=== PATIENT | female | born 1950 | race Caucasian/White ===

== ENCOUNTER → 2020-02-29 | Outpatient (CLI) | payer MEDICARE, SELFPAY ==
--- NOTE | 2020-02-29 11:17 | RAD_ITS ---
STUDY: X-RAY - PELVIS REASON FOR EXAM: Female, 69 years old. arthritis, bilateral hip pain TECHNIQUE: One view of the pelvis was obtained. COMPARISON: None. FINDINGS: There is a non-specific bowel gas pattern. Normal visualized soft tissue structures. Degenerative changes of the lumbosacral spine with L5 laminectomy noted. Normal bilateral iliac wings, sacroiliac joints and visualized sacrum. Normal visualized bilateral superior and inferior pubic rami. There is narrowing with sclerosis of the pubic symphysis. Normal ischial tuberosities. There are osteoarthritic changes of the right femoral head with marginal osteophyte formation. There is osteoarthritic spur formation of the right acetabular rim. There is moderate articular joint space narrowing of the right hip. There are osteoarthritic changes of the left femoral head with marginal osteophyte formation. There is osteoarthritic spur formation of the left acetabular rim. There is moderate articular joint space narrowing of the left hip. RAD/Pelvis 1 or 2 Views IMPRESSION: Moderate bilateral hip osteoarthrosis. Electronically Signed: Shabbir Jones MD (Brooks) at 13:43 EDT , Service support ,
--- NOTE | 2020-02-29 11:19 | RAD_ITS ---
STUDY: X-RAY - LEFT KNEE REASON FOR EXAM: Female, 69 years old. arthritis -- bilateral knee pain and leg, left more than right TECHNIQUE: 3 view(s) of the knee. COMPARISON: None. FINDINGS: Normal visualized distal femur. Normal visualized proximal tibia and fibula. Normal proximal tibiofibular articulation. Normal medial femorotibial compartment. There is severe degenerative arthrosis of the lateral femorotibial compartment with severe joint space narrowing. There is moderate degenerative arthrosis of the patellofemoral articulation. There is a soft tissue prominence in the suprapatellar region suggesting a small volume joint effusion. The soft tissue structures are unremarkable. RAD/Knee 3 Views IMPRESSION: Lateral dominant osteoarthrosis. Trace joint effusion. Electronically Signed: Shabbir Jones MD (Brooks) at 13:41 EDT , Service support ,
--- NOTE | 2020-02-29 11:19 | RAD_ITS ---
STUDY: X-RAY - RIGHT KNEE REASON FOR EXAM: Female, 69 years old. arthritis -- bilateral knee pain and leg, left more than right TECHNIQUE: 3 view(s) of the knee. COMPARISON: None. FINDINGS: Normal visualized distal femur. Normal visualized proximal tibia and fibula. Normal proximal tibiofibular articulation. There is mild degenerative arthrosis of the medial femorotibial compartment. There is mild degenerative arthrosis of the lateral femorotibial compartment. There is mild degenerative arthrosis of the patellofemoral articulation. There is no demonstrated joint effusion. The soft tissue structures are unremarkable. RAD/Knee 3 Views IMPRESSION: Mild tricompartmental osteoarthrosis. No joint effusion. Electronically Signed: Shabbir Jones MD (Brooks) at 13:41 EDT , Service support ,
== END | disposition home or self-care (01) ==
LOC: RAD 11:15
PROVIDERS: PCP Family Medicine; Referring Provider Internal Medicine Rheumatology; Visit Provider Internal Medicine Rheumatology
DX: M15.0 Primary generalized (osteo)arthritis (principal)
CPT/HCPCS: 72170; 73562

== ENCOUNTER → 2022-01-14 | Outpatient (CLI) | payer MEDICARE, SELFPAY ==
[2022-01-14 15:21] LABS: Absolute Lymphocyte Count 2.22 X10^3/uL (0.83-4.51); Absolute Neutrophil Count 3.7 X10^3/uL (2.0-7.7); Basophil# 0.03 X10^3/uL; Basophil% 0.4 % (0-1); Eosinophil# 0.11 X10^3/uL; Eosinophils% 1.6 % (0-5); Hematocrit 46.7 % (37-47); Hemoglobin 15.5 g/dL (12.0-15.0); Lymphocyte # 2.22 X10^3/ul (0.83-4.51); Lymphocyte % 33.3 % (19-41); Mean Corp Hgb Conc 33.2 g/dL (32-36); Mean Corpuscular Hgb 29.8 pg (27.0-32.0); Mean Corpuscular Volume 89.6 fL (81-99); Monocyte# 0.64 X10^3/uL; Monocyte% 9.6 % (0-10); NRBC Flagged by Analyzer 0 % (0-5); Neutrophil # 3.66 X10^3/uL (2.7-7.7); Platelet Count 238 K/mm3 (150-450); RBC Distribution Width CV 13.2 % (11.6-14.6); RBC Distribution Width SD 42.8 fl (35.1-43.9); Red Blood Count 5.21 M/mm3 (4.2-5.4); White Blood Count 6.7 K/mm3 (4.4-11.0)
[2022-01-14 15:38] LABS: Vitamin D,25 Hydroxy 28.7 ng/mL
[2022-01-14 15:43] LABS: ALB/GLOB Ratio 0.8 RATIO (0.9-2.4); AST(SGOT) 19 U/L (15-37); Alanine Aminotransfer ALT/SGPT 27 U/L (13-56); Albumin, Serum 3.5 g/dL (3.2-5.0); Alkaline Phosphatase 99 U/L (45-117); Anion Gap 6 (5-15); BUN 23 mg/dL (7-18); BUN/Creat Ratio 25.7 RATIO (10-20); Calcium,Total 9.3 mg/dL (8.5-10.1); Chloride 110 mmol/L (98-107); Cholesterol 181 mg/dL (200); Creatinine, Serum 0.89 mg/dL (0.55-1.02); EST Glomerular Filtration Rate 66 mL/min (>60); Est Glom Filt Rate - Afr Amer 80 mL/min (>60); Globulin 4.6 g/dL (2.2-4.2); Glucose 85 mg/dL (74-106); High Density Lipoprotein 37 mg/dL; Magnesium 1.8 mg/dL (1.6-2.6); Potassium 3.8 mmol/L (3.5-5.1); Protein, Total 8.1 g/dL (6.4-8.2); Sodium Level 141 mmol/L (136-145); Thyroid Stim Hormone (TSH) 1.08 uIU/mL (0.358-3.74); Triglycerides 233 mg/dL; Very Low Density Lipoprotein 47 mg/dL (5-40)
[2022-01-17 15:08] LABS: PROEL- A/G Ratio 1.1 (0.7-1.7); PROEL- Albumin 3.8 g/dL (2.9-4.4); PROEL- Alpha-1 Globulin 0.2 g/dL (0.0-0.4); PROEL- Alpha-2 Globulin 0.6 g/dL (0.4-1.0); PROEL- Beta Globulin 1.3 g/dL (0.7-1.3); PROEL- Gamma Globulin 1.4 g/dL (0.4-1.8); PROEL- Globulin, Total 3.5 g/dL (2.2-3.9); PROEL- TOTAL PROTEIN 7.3 g/dL (6.0-8.5)
== END | disposition home or self-care (01) ==
LOC: MTLAB 13:02
PROVIDERS: PCP Family Medicine; Referring Provider Family Medicine; Visit Provider Family Medicine
DX: I10 Essential (primary) hypertension (principal); E55.9 Vitamin D deficiency, unspecified
CPT/HCPCS: 36415; 80053; 80061; 82306; 83735; 84165; 84443; 85025

== ENCOUNTER → 2022-01-24 | Outpatient (CLI) | payer MEDICARE, SELFPAY ==
--- NOTE | 2022-01-24 07:48 | RAD_ITS ---
STUDY: X-RAY - ESOPHAGUS (BARIUM SWALLOW) WITH FLUOROSCOPY REASON FOR EXAM: Female, 71 years old. DYSPHAGIA TECHNIQUE: 21 view(s) of the esophagus were obtained following swallowing of barium. FLUOROSCOPY TIME (if supplied): (32 seconds) minutes/seconds COMPARISON: None. FINDINGS: There is no demonstrated esophageal foreign body. There is no demonstrated stricture or mucosal abnormality. Normal gastroesophageal junction, without a demonstrated hiatal hernia. Tertiary contractions of the distal esophagus. The patient ingested a 12 mm tablet of barium. The tablet is trapped at the gastroesophageal junction. Normal visualized aortic arch and descending thoracic aorta. Normal visualized pulmonary parenchyma. Normal visualized osseous structures of the thorax. RAD/Esophagus Dual Contrast IMPRESSION: The patient ingested a 12 mm tablet of barium. The tablet is trapped at the gastroesophageal junction. Electronically Signed: Murali Garcia MD at 9:06 EDT ,
== END | disposition home or self-care (01) ==
PROVIDERS: PCP Family Medicine; Referring Provider Family Medicine; Visit Provider Family Medicine
DX: R13.10 Dysphagia, unspecified (principal)
CPT/HCPCS: 74221

== ENCOUNTER 2022-05-16 05:26 | Day surgery (SDC) | payer MEDICARE, SELFPAY ==
[2022-05-16] VITALS (7 sets, daily range): BP systolic 135–167; BP diastolic 74–82; PULSE 58–61; RESP 12–18; TEMP 36.4–37.3; O2SAT 95–98; BMI 43.8
--- NOTE | 2022-05-16 | GASB_PTH ---
PATIENT: NASEEM ROMAN LOC: EN U#:[id number] AGE/SX: 71/F ROOM: RE05/16/[address]: Dr. Leroy Mejia MD : 1950 BED: DIS: 05/16/2022 SPEC #: [id number] RECD: 05/16/22 10:04 STATUS: NIXON SMALL #: [id number] JAROCHO: 05/16/22 00:[address]: Leroy Mejia DEPT: SURGICAL PATHOLOGY RECD BY: Stephan Feliciano ENTERED: 05/16/22 14:01 SP TYPE: Gastric Bx OTHR DR: Dr. Nitesh Kat MD Tissues: A - Gastric mucous membrane B - Stomach, NOS C - Gastric mucous membrane Procedures: Special Stain Group II Surgery Specimen Level IV Alcian Blue/PAS (control) HEADER OPERATION: EGD ([facility] [place]) with biopsies and dilatation PRE-OP DIAGNOSIS: GERD TISSUE SUBMITTED: A ? Antrum biopsy for H. Pylori and histology, B ? Greater curvature polyp biopsy, C ? Gastroesophageal junction biopsy MICROSCOPIC DIAGNOSIS A. Antrum, biopsy: Mild gastritis. See microscopic description and comment. B. Greater curvature polyp, biopsy: Fundic gland polyp. C. Gastroesophageal junction, biopsy: Fragments of gastroesophageal mucosa with chronic inflammation. Intestinal metaplasia (goblet cell metaplasia) not identified. See comment. SJ:rg 05/20/2022 COMMENT A. The results of immunohistochemistry for Helicobacter pylori will be reported separately ([id number]). C. Alcian blue/PAS stain with matched control is used in the evaluation of the specimen. MICROSCOPIC DESCRIPTION Slides are reviewed. A. The specimen shows fragments of gastric mucosa with chronic inflammatory cell infiltrates in the lamina propria consisting of lymphocytes and plasma cells, consistent with mild chronic gastritis. GROSS DESCRIPTION A - Received in fixative is one container labeled with the patient's name and designated antrum biopsy. The specimen consists of two irregular fragments of light lord soft tissue that in aggregate measure 0.6 x 0.3 x 0.1 cm. The specimen is totally submitted in one cassette. B - Received in fixative is one container labeled with the patient's name and designated greater curvature polyp biopsy. The specimen consists of one irregular fragment of light lord soft tissue that measures 0.3 x 0.3 x 0.1 cm. The specimen is totally submitted in one cassette. C - Received in fixative is one container labeled with the patient's name and designated GE junction biopsy. The specimen consists of two irregular fragments of light lord soft tissue that in aggregate measure 0.7 x 0.3 x 0.1 cm. The specimen is totally submitted in one cassette. / SJ:rg 05/16/2022 TC:3 CPT: 78993 x3, 88156
[2022-05-16] MEDS: Lactated Ringers 1,000 ML 15 ML IV (05:35)
--- NOTE | 2022-05-16 06:03 | PCM.HP.BLA ---
History and Physical Date of Admission: 05/16/22 Visit Reasons:?Gastroesophageal reflux disease (GERD) Chief Complaint: gerd/swallowing difficulties Is patient in pain?: No Allergies Penicillins Allergy (Intermediate, Verified 03/20/22 10:13) Hiveslatex Allergy (Uncoded 03/20/22 10:13) Swelling Medications aliskiren 150 mg-hydrochlorothiazide 12.5 mg tablet (Tekturna HCT) 1 tab PO DAILY 03/20/22 [History Confirmed 03/20/22] atorvastatin 20 mg tablet 20 mg PO DAILY 03/20/22 [History Confirmed 03/20/22] cholecalciferol (vitamin D3) 50 mcg (2,000 unit) capsule 50 mcg PO DAILY 03/20/22 [History Confirmed 03/20/22] famotidine 20 mg tablet (Acid Cert Pharmacy Tech (famotidine)) 20 mg PO DAILY 03/20/22 [History Confirmed 03/20/22] metoprolol succinate 25 mg tablet,extended release 24 hr (Toprol XL) 25 mg PO DAILY 03/20/22 [History Confirmed 03/20/22] omeprazole 40 mg capsule,delayed release 40 mg PO DAILY 03/20/22 [History Confirmed 03/20/22] PFSH Surgical History?(Updated 03/20/22 @ 10:08 by Daysi Pedersen) H/O Spinal surgery History of cholecystectomy History of lumpectomy of left breast History of right hip replacement Family History?(Updated 03/20/22 @ 10:09 by Daysi Pedersen) Mother Diabetes Hypertension CVA (cerebral vascular accident)Father Heart disease Hypertension Social History?(Updated 03/20/22 @ 10:09 by Daysi Pedersen) Smoking Status:? Never smoker alcohol intake:? never substance use type:? does not use HPI HPI HPI: 71-year-old female who is referred by Dr Nitesh Kat for surgical consultation regarding gastroesophageal reflux disease.? A written copy of my surgical consult recommendations will return to him.? By report the patient's symptoms of GERD started in the .? She complains of epigastric gnawing pain and substernal burning.? She does not have any dysphagia to solids.? She is dependent upon her proton pump inhibitor.? She has never had an upper endoscopy.? It is of note that she is intolerant to multiple medications.? Her PPI is omeprazole 40 mg daily.? It is noted that she takes ibuprofen 600 mg as needed.? She is not a tobacco user.? She is morbidly obese with a weight of 258 pounds and a BMI of 41.7.? She is additionally being referred to Dr. Leroy Bateman for further evaluation of suspected obstructive sleep apnea. At the [facility] on January 24, 2022 the patient had a barium esophagram.? Normal gastroesophageal junction without a demonstrated hiatal hernia.? Tertiary contractions of the distal esophagus.? A 12 mm tablet of barium became trapped at the GE junction. The patient notes that intermittently particular with taking tablets she will notice that sensation high in the suprasternal area of the neck.? She has been placed on famotidine 20 g nightly in addition to her omeprazole therapy.? She has just started that and states she has not noticed any significant change.? She is able to swallow foods well.? She has not had any weight loss and likely over the past couple years has had weight gain.? She has orthopedic issues that have slowed down her activity. ROS General General: Yes colon cancer and breast cancer; No weight change, appetite, fatigue or weakness HEENT HEENT: Yes difficulty swallowing; No eye injury, eye surgery, swollen glands or hoarseness Endo Endocrine: No thyroid disease, diabetes mellitus, thyroid cancer, Hair loss, heat intolerance or cold intolerance Skin Skin: No rash or changing moles Breast Breast: No left breast lump, right breast lump, nipple discharge, breast pain, abnormal mammogram, abnormal US or breast enlargement Musc Musculoskeletal: Yes back problems and arthritis; No rheumatoid arthritis, gout or joint pain Cardio Cardiovascular: Yes high blood pressure; No murmur, pacemaker, heart disease, atrial fibrillation, heart attack, heart stent, palpitations, shortness of breat with exertion or chest pain Psych Psychiatric: No depression, anxiety or hearing voices Resp Respiratory: No shortness of breath, Yes sleep apnea, No cough, No COPD, No asthma, No emphysema and No wheezing Gastro Gastrointestinal: No abdominal pain, Yes nausea or vomiting, No diarrhea, No constipation, No blood in stool, Yes acid reflux, No hemorrhoids, No ulcers, No gallbladder problem and No black,tarry stools Elías Hematologic: No blood thinners, No blood disorders, No bleeding, No anemia and No blood clots Neuro Neurologic: No system reviewed and no additional complaints, except as documented, No as per HPI, No abnormal gait, No abnormal hearing, No abnormal movements, No abnormal speech, No behavioral changes, No burning sensations, No confusion, No convulsions, No disequilibrium, No dizziness, No localized weakness, No frequent falls, No headache(s), No lack of coordination, No loss of vision, No memory loss, No numbness, No other visual disturbances, No radicular pain, No restless legs, No sensory deficit, No syncope, No tingling, No tremor(s), No weakness and No other Exam Const General: cooperative, healthy appearing, comfortable and no acute distress [facility] Head: normal to inspection Eyes General: appearance normal, both eyes and all related structures Neck Neck: normal visual inspection Chest Chest palpation & inspection: normal inspection of the chest Resp Effort & Inspection: normal respiratory effort Auscultation: clear to auscultation bilaterally Cardio Rate: regular rate Rhythm: regular rhythm GI Inspection: normal to inspection Palpation: soft and no hepatosplenomegaly Auscultation: normal bowel sounds Other: Soft, nontender, obese Musc Cervical Spine: normal cervical lordosis Skin General: no rashes or lesions noted Neuro General: patient alert, patient awake and patient oriented x3 Extrem General: no calf tenderness Other: Minimal bilateral extremity swelling Psych Appearance: grossly normal Assessment and Plan Assessment and Plan (1) Gastroesophageal reflux disease: ?Plan: I have reviewed with the patient the findings of her barium swallow and the barium tablet becoming stuck at the EG junction.? I propose for her a esophagogastroduodenoscopy with possible biopsy or esophageal dilatation if indicated.? I have described the technique, benefit, risk, alternatives.? I am proposing a [id number] hydrostatic balloon dilatation if required.? She had concerns about the sedation and I instructed her that we would be utilizing monitored anesthesia care.? She has had an opportunity to ask and have questions answered. I have additional discussed with her nonsurgical treatment options and we did touch upon the significant benefit of weight loss.? She is hoping to become more active as her orthopedic issues improve. I appreciate the opportunity of assisting with her surgical care Copy: Dr Nitesh Mejia M.D., F.A.C.S. I have examined the patient and the H&P has been reviewed. There are no clinical changes since date of exam. Leroy Mejia M.D., F.A.C.S.
--- NOTE | 2022-05-16 06:30 | IMM_PTH ---
PATIENT: NASEEM ROMAN LOC: EN U#:[id number] AGE/SX: 71/F ROOM: RE05/16/[address]: Dr. Leroy Mejia MD : 1950 BED: DIS: 05/16/2022 SPEC #: [id number] RECD: 05/16/22 14:21 STATUS: NIXON REQ #: [id number] JAROCHO: 05/16/22 06:[address]: Leroy Mejia DEPT: IMMUNOHISTOCHEMISTRY RECD BY: Florecita Bonilla ENTERED: 05/16/22 14:21 SP TYPE: IMMUNO OTHR DR: Dr. Nitesh Kat MD Tissues: A - Stomach, NOS Procedures: H Pylori (initial) PHYSICIAN & [place] [address] SPECIMEN INFORMATION: Tissue Source: A ? Antrum biopsy Clinical Info: GERD Specimen Number: [id number] CPT code: 75277 METHODOLOGY: Deparaffinized sections of prefer/formalin-fixed tissue or PAP/DQ stained slides are incubated with monoclonal/polyclonal antibodies/oligonucleotide probes. Localization is made via biotin free immunoperoxidase method. Appropriate controls are performed and reacted as expected. Results on target cell population are indicated in the following table: RESULTS: ANTIBODY / CLONE RESULT Block A H Pylori (polyclonal) negative These tests were developed and their performance characteristics determined by [facility]. They may not have been cleared or approved by the U.S. Food and Drug Administration. The FDA has determined that such clearance or approval is not necessary. The above immunohistochemical/dualISH markers are ordered and reviewed by the Pathologist. INTERPRETATION: A. Antrum, biopsy: Negative for Helicobacter pylori organisms. SJ:rigo 05/20/2022
--- NOTE | 2022-05-16 06:58 | OP.EGD_ITS ---
Patient Name: Dulce Peñaloza Procedure Date: 05/16/2022 6:07 AM Date of : 1950 Age: 71 Procedure: Upper GI endoscopy Indications: Dysphagia Providers: Leroy eMjia MD Referring MD: Leroy Mejia MD Medicines: See the Anesthesia note for documentation of the administered medications Complications: No immediate complications. Procedure: Pre-Anesthesia Assessment: - Prior to the procedure, a History and Physical was performed, and patient medications and allergies were reviewed. The patient's tolerance of previous anesthesia was also reviewed. The risks and benefits of the procedure and the sedation options and risks were discussed with the patient. All questions were answered, and informed consent was obtained. Prior Anticoagulants: The patient has taken no previous anticoagulant or antiplatelet agents. ASA Grade Assessment: II - A patient with mild systemic disease. After reviewing the risks and benefits, the patient was deemed in satisfactory condition to undergo the procedure. After obtaining informed consent, the endoscope was passed under direct vision. Throughout the procedure, the patient's blood pressure, pulse, and oxygen saturations were monitored continuously. The gastroscope was introduced through the mouth, and advanced to the second part of duodenum. The upper GI endoscopy was accomplished without difficulty. The patient tolerated the procedure well. Scope In: 6:36:07 AM Scope Out: 6:50:50 AM Total Procedure Duration Time 0 hours 14 minutes 43 seconds Findings: A mild Schatzki ring was found at the gastroesophageal junction. Biopsies were taken with a cold forceps for histology. A TTS dilator was passed through the scope. Dilation with an 18-19-20 mm balloon dilator was performed to 20 mm. The dilation site was examined following endoscope reinsertion and showed no change. Estimated blood loss was minimal. Diffuse mildly erythematous mucosa without bleeding was found in the gastric antrum. Biopsies were taken with a cold forceps for histology. The examined duodenum was normal. A small hiatal hernia was present. Multiple sessile polyps with no bleeding and no stigmata of recent bleeding were found on the greater curvature of the stomach. The polyp was removed with a cold biopsy forceps. Resection and retrieval were complete. Impression: - Mild Schatzki ring. Biopsied. Dilated. - Erythematous mucosa in the antrum. Biopsied. - Normal examined duodenum. Recommendation: - Discharge patient to home. - Resume previous diet. - Continue present medications. - Telephone my office for pathology results in 1 week. Procedure Code(s): --- Professional --- 92617, Esophagogastroduodenoscopy, flexible, transoral; with transendoscopic balloon dilation of esophagus (less than 30 mm diameter) 30699, 59, Esophagogastroduodenoscopy, flexible, transoral; with biopsy, single or multiple Diagnosis Code(s): --- Professional --- K22.2, Esophageal obstruction K31.89, Other diseases of stomach and duodenum R13.10, Dysphagia, unspecified CPT copyright 2017 [employer]. All rights reserved. The codes documented in this report are preliminary and upon charter boat operator review may be revised to meet current compliance requirements. Leroy Mejia MD 05/16/2022 6:57:40 AM This report has been signed electronically. Number of Addenda: 0 Note Initiated On: 05/16/2022 6:07 AM
--- NOTE | 2022-05-16 06:59 | OP.CCLET_ITS ---
05/16/2022 Nitesh Kat [address] [place] [address] Re : Upper GI endoscopy procedure for Dulce Peñaloza Dear Dr. Kat This procedure was performed on Monday, May 16, 2022. My impressions and recommendations are as follows: Impressions : - Mild Schatzki ring. Biopsied. Dilated. - Erythematous mucosa in the antrum. Biopsied. - Normal examined duodenum. Recommendations : - Discharge patient to home. - Resume previous diet. - Continue present medications. - Telephone my office for pathology results in 1 week. My findings are described in the full procedure note, which is enclosed. If I can be of further assistance, please feel free to contact me at Doctor phone number(s): Work: . Sincerely, Leroy Mejia MD 05/16/2022 6:57:40 AM This report has been signed electronically.
== END 2022-05-16 07:42 | disposition home or self-care (01) ==
LOC: EN 05:29 → AC 05:30
PROVIDERS: PCP Family Medicine; Referring Provider Family Medicine; Visit Provider Surgery
PROC: 0DJ08ZZ Inspection of Upper Intestinal Tract, Via Natural or Artificial Opening Endoscopic (ICD-10-PCS; CPT 43235; principal; 2022-05-16 06:25)
DX: K29.50 Unspecified chronic gastritis without bleeding (principal); E66.01 Morbid (severe) obesity due to excess calories; Z68.41 Body mass index [BMI] 40.0-44.9, adult; K22.2 Esophageal obstruction; K44.9 Diaphragmatic hernia without obstruction or gangrene; K31.89 Other diseases of stomach and duodenum; K21.00 Gastro-esophageal reflux disease with esophagitis, without bleeding; K31.7 Polyp of stomach and duodenum; E78.00 Pure hypercholesterolemia, unspecified; Z79.899 Other long term (current) drug therapy
CPT/HCPCS: 43239; 43249; 88305; 88313; 88342; J7120; J2405

== ENCOUNTER → 2022-05-29 | Outpatient (CLI) | payer MEDICARE, SELFPAY ==
[2022-05-29 15:32] LABS: Mucous, Urine 0 SEEN /hpf (<or=2+); Red Blood Cells-Urine 0 SEEN /hpf (0-5)
[2022-05-29 17:40] LABS: Absolute Lymphocyte Count 2.16 X10^3/uL (0.83-4.51); Absolute Neutrophil Count 4.1 X10^3/uL (2.0-7.7); Basophil# 0.04 X10^3/uL; Basophil% 0.6 % (0-1); Eosinophil# 0.18 X10^3/uL; Eosinophils% 2.5 % (0-5); Hematocrit 43.1 % (37-47); Hemoglobin 13.4 g/dL (12.0-15.0); Lymphocyte # 2.16 X10^3/ul (0.83-4.51); Lymphocyte % 30.3 % (19-41); Mean Corp Hgb Conc 31.1 g/dL (32-36); Mean Corpuscular Hgb 27.5 pg (27.0-32.0); Mean Corpuscular Volume 88.3 fL (81-99); Monocyte# 0.65 X10^3/uL; Monocyte% 9.1 % (0-10); NRBC Flagged by Analyzer 0 % (0-5); Neutrophil % 57.4 % (47-70); Platelet Count 257 K/mm3 (150-450); RBC Distribution Width CV 12.9 % (11.6-14.6); RBC Distribution Width SD 41.5 fl (35.1-43.9); Red Blood Count 4.88 M/mm3 (4.2-5.4); White Blood Count 7.1 K/mm3 (4.4-11.0)
[2022-05-29 18:34] LABS: ALB/GLOB Ratio 0.9 RATIO (0.9-2.4); AST(SGOT) 13 U/L (15-37); Alanine Aminotransfer ALT/SGPT 21 U/L (13-56); Albumin, Serum 3.5 g/dL (3.2-5.0); Alkaline Phosphatase 112 U/L (45-117); Anion Gap 6 (5-15); BUN 17 mg/dL (7-18); BUN/Creat Ratio 17.8 RATIO (10-20); Chloride 109 mmol/L (98-107); Cholesterol 143 mg/dL (200); Creatinine, Serum 0.95 mg/dL (0.55-1.02); EST Glomerular Filtration Rate 61 mL/min (>60); Est Glom Filt Rate - Afr Amer 74 mL/min (>60); Globulin 3.8 g/dL (2.2-4.2); Glucose 98 mg/dL (74-106); High Density Lipoprotein 48 mg/dL; Potassium 4.2 mmol/L (3.5-5.1); Protein, Total 7.3 g/dL (6.4-8.2); Sodium Level 142 mmol/L (136-145); Thyroid Stim Hormone (TSH) 0.81 uIU/mL (0.358-3.74); Triglycerides 108 mg/dL; Very Low Density Lipoprotein 22 mg/dL (5-40)
[2022-05-29 19:31] LABS: Color, Urine Yellow (Yellow); Glucose, Dipstick Normal (Normal); Ketone-Dipstick Negative (Negative); Leukocyte Esterase-Dipstick Negative /ul (Negative); Nitrite-Dipstick Negative (Negative); Occult Blood-Urine Negative /ul (Negative); Protein-Dipstick Negative (Negative); Urine Bilirubin Dipstick Negative (Negative); Urine Clarity Sl. Cloudy (Clear); Urine Urobilinogen Normal (Normal)
[2022-05-29 20:10] LABS: Vitamin D,25 Hydroxy 44.6 ng/mL
[2022-05-29 21:33] LABS: Bacteria 3+ /hpf (None Seen); Squamous Epithelial Cells - UA 5-10 SEEN /hpf (5-10); White Blood Cells 0-5 SEEN /hpf (0-5)
== END | disposition home or self-care (01) ==
LOC: MFPLAB 15:27
PROVIDERS: PCP Family Medicine; Visit Provider Family Medicine
DX: I10 Essential (primary) hypertension (principal); E55.9 Vitamin D deficiency, unspecified
CPT/HCPCS: 36415; 80053; 80061; 81001; 82306; 84443; 85025

== ENCOUNTER → 2022-07-03 | Outpatient (CLI) | payer MEDICARE, SELFPAY ==
[2022-07-03 15:49] LABS: Mucous, Urine 0 SEEN /hpf (<or=2+); Red Blood Cells-Urine 0 SEEN /hpf (0-5)
[2022-07-03 16:35] LABS: Color, Urine Yellow (Yellow); Glucose, Dipstick Normal (Normal); Ketone-Dipstick Negative (Negative); Leukocyte Esterase-Dipstick 500 /ul (Negative); Nitrite-Dipstick Negative (Negative); Occult Blood-Urine Negative /ul (Negative); Protein-Dipstick Negative (Negative); Specific Gravity, Urine 1.005 (1.002-1.030); Urine Bilirubin Dipstick Negative (Negative); Urine Clarity Sl. Cloudy (Clear); Urine Urobilinogen Normal (Normal)
[2022-07-03 16:47] LABS: Bacteria 2+ /hpf (None Seen); Squamous Epithelial Cells - UA 0-5 SEEN /hpf (5-10); White Blood Cells 10-25 SEEN /hpf (0-5)
== END | disposition home or self-care (01) ==
LOC: LABSPEC 15:15
PROVIDERS: PCP Family Medicine; Referring Provider Family Medicine; Visit Provider Family Medicine
DX: N39.0 Urinary tract infection, site not specified (principal)
CPT/HCPCS: 81001; 87086; 87088; 87186

== ENCOUNTER → 2022-09-04 | Outpatient (CLI) | payer MEDICARE, SELFPAY ==
--- NOTE | 2022-09-04 08:24 | RAD_ITS ---
STUDY: X-RAY - LUMBAR SPINE REASON FOR EXAM: Female, 71 years old. LOW BACK PAIN TECHNIQUE: 4 view(s) of the lumbar spine were obtained. COMPARISON: None FINDINGS: There has been previous laminectomy and pedicle screw fusion surgery at L4 and L5. Hardware is intact and free of complication. Normal lumbar lordosis. There is no substantial scoliosis. There is a normal alignment of the vertebrae. There is multilevel endplate spondylosis of the lumbar vertebrae. There is multi-level degenerative disc disease with multi-level disc space narrowing. There is no demonstrated fracture. There is atherosclerotic calcification of the abdominal aorta without a demonstrated aneurysm. RAD/L/S Spine Min 4 Views IMPRESSION: Multilevel degenerative and postsurgical changes, no acute findings Electronically Signed: Magdiel Sands MD at 9:36 EDT ,
== END | disposition home or self-care (01) ==
LOC: MTRAD 08:23
PROVIDERS: PCP Family Medicine; Referring Provider Family Medicine; Visit Provider Family Medicine
DX: M54.50 Low back pain, unspecified (principal)
CPT/HCPCS: 72110

== ENCOUNTER → 2023-06-03 | Outpatient (CLI) | payer MEDICARE, SELFPAY ==
--- OUTSIDE RECORDS SUMMARY | 2023-06-03 16:44 | XMS RPT_ITS | CCD ---
Author Name Unknown Address [id number] [place] [address] Organization [facility] Care Team Providers Care Gas Worker Name Role Phone Unavailable Primary Care Provider Unavailabl e Jl Whatley Primary Care Provider JL WHATLEY Primary Care Unavailable SIVAKUMAR WHATLEY Attending Unavailable SIVAKUMAR WHATLEY Referring Unavailable JL WHATLEY Primary Care Unavailable SIVAKUMAR WHATLEY Attending Unavailable SIVAKUMAR WHATLEY Referring Unavailable Jl Whatley MD Primary Care Provider JL WHATLEY Primary Care Unavailable SIVAKUMAR WHATLEY Referring Unavailable SIVAKUMAR WHATLEY Admitting Unavailable Jl Whatley MD Primary Care Provider Jl Whatley MD Primary Care Provider Jl Whatley MD Primary Care Provider SIVAKUMAR WHATLEY Attending Unavailable JL WHATLEY Primary Care Unavailable SIVAKUMAR WHATLEY Attending Unavailable JL WHATLEY Primary Care Unavailable SIVAKUMAR WHATLEY Attending Unavailable JL WHATLEY Primary Care Unavailable JL WHATLEY Primary Care Unavailable CHERISE PRIETO Attending Unavaila ble JL WHATLEY F Primary Care Unavailable CHERISE PRIETO Attending Unavaila ble JL WHATLEY F Primary Care Unavailable CHACORTA, SIVAKUMAR RJ Referring Unavailable CHACORTA, SIVAKUMAR RJ Attending Unavailable JL WHATLEY F Primary Care Unavailable CHACORTA, SIVAKUMAR RJ Referring Unavailable CHACORTA, SIVAKUMAR RJ Attending Unavailable CHACORTA, SIVAKUMARJUAN CARVALHOH Attending Unavailable JL WHATLEY F Primary Care Unavailable SIVAKUMAR WHATLEYH Referring Unavailable Jl Whatley MD Primary Care Provider [phone] Unavailable Primary Care Provider Unavailabl e UNASSIGNED, UNASSIGNED Primary Care Unavailab Lakhwinder Varner Attending Unavailable PROVIDER, UNKNOWN Referring Unavailable CHERISE HARVEY Admitting UnavailCHERISE Hamlin Attending UnavailMOHAN Alarcon Primary Care Unavailabl e AMALSCARLETT COLBY Referring Unavailabl e [facility] Care Unavailable AMSCARLETT COLLINS Referring Unavailabl e [facility] Primary Care Unavailable [facility] Primary Care Unavailable AMSCARLETT COLLINS Referring Unavailabl e Mohan Kat Primary Care Provider LAKHWINDER PHAM Referring Unavailable [facility] Primary [facility] Unavailable LAKHWINDER PHAM Admitting Unavailable LAKHWINDER PHAM Attending Unavailable [facility] Primary [facility] Unavailable SAMMY JEROME Unavailable Mohan Kat Primary Care Provider DEANA NOGUERA Attending Unavailable DEANA NOGUERA Attending Unavailable DEANA NOGUERA DO Admitting Unavailable DEANA NOGUEAR DO Attending Unavailable DEANA NOGUERA DO Primary Care Unavailable OFELIA BURDICK Attending Unavailable OFELIA BURDICK Primary Care Unavailable OFELIA BURDICK Admitting Unavailable Mohan Kat MD Primary Care Provider SCARLETT BELL Referring UnavailMOHAN Alarcon Primary Care Unavailable AMSCARLETT COLLINS Referring Unavailabl e AMALSCARLETT COLBY Attending UnavailMOHAN Alarcon Primary Care Unavailable MOHAN KAT MD Primary Care Physician [phone] DR LAKHWINDER PHAM DO Attending Unavailable MOHAN KAT MD Primary Care Unavailable Allergies Allergy Classification Reported Allergen(s) Allergy Type Date of Onset Reaction(s) Facility Amitriptyline (13 sources) Amitriptyline; Translations: [AMITRIPTYLINE HCL] Drug Allergy 05-11-20 13 Other (See Comments) [facility] anastrozole (13 sources) anastrozole; Translations: [ANASTROZOLE] Drug Allergy 05-11-20 13 Other (See Comments) [facility] Angiotensin 2 Receptor Blockers (ARB) (13 sources) Losartan; Translations: [LOSARTAN POTASSIUM] Drug Allergy 05-03-20 13 Other (See Comments) [facility] Antihistamines (13 sources) hydrOXYzine; Translations: [HYDROXYZINE] Drug Allergy 05-03-20 13 Other (See Comments) [facility] Aspirin / oxyCODONE Hydrochloride / oxyCODONE terephthalate (12 sources) Aspirin / oxyCODONE Hydrochloride / oxyCODONE terephthalate Drug Allergy 05-03-20 13 Other (See Comments) [facility] Atenolol (13 sources) Atenolol; Translations: [ATENOLOL] Drug Allergy 05-11-20 13 Other (See Comments) [facility] Brompheniramine / Phenylephrine (13 sources) Brompheniramine / Phenylephrine; Translations: [BROMPHENIRAMINE-P HENYLEPHRINE] Drug Allergy 05-11-20 13 Other (See Comments) [facility] Caffeine (13 sources) Caffeine; Translations: [CAFFEINE] Drug Allergy 06-17-19 07 [facility] Calcium (13 sources) Calcium; Translations: [CALCIUM] Drug Allergy 08-23-19 21 Other (See Comments) [facility] CHYMOTRYPSIN (13 sources) CHYMOTRYPSIN; Translations: [CHYMOTRYPSIN] Drug Allergy 05-11-20 13 Other (See Comments) [facility] cloNIDine (13 sources) cloNIDine; Translations: [CLONIDINE] Drug Allergy 05-11-20 13 Other (See Comments) [facility] Corticosteroids (20 sources) fluticasone; Translations: [FLUTICASONE] Drug Allergy 05-11-20 13 Other (See Comments) [facility] Doxycycline (13 sources) Doxycycline; Translations: [DOXYCYCLINE CALCIUM] Drug Allergy 05-11-20 13 Other (See Comments) [facility] Estrogens, Esterified (SKILLED NURSING) (12 sources) Estrogens, Esterified (SKILLED NURSING) Drug Allergy 05-11-20 13 Hives, Other (See Comments) [facility] exemestane (13 sources) exemestane; Translations: [EXEMESTANE] Drug Allergy 05-11-20 13 Other (See Comments) [facility] fexofenadine (13 sources) fexofenadine; Translations: [FEXOFENADINE] Drug Allergy 05-11-20 13 Other (See Comments) [facility] Latex (13 sources) Latex; Translations: [LATEX] Substance Allergy 03-25-20 06 Rash [facility] NSAIDs (6 sources) Ibuprofen; Translations: [IBUPROFEN] Drug All[facility] 06-17-[facility] 07 [facility] Opioid Agonists (20 sources) Codeine; Translations: [CODEINE] Drug Allergy 06-17-19 07 Other (See Comments) [facility] Penicillins (antibiotic) (13 sources) Penicillins; Translations: [PENICILLINS] Drug Allergy 06-17-19 07 Hives [facility] Perphenazine (13 sources) Perphenazine; Translations: [PERPHENAZINE] Drug Allergy 05-11-20 13 Other (See Comments) [facility] Promethazine (13 sources) Promethazine; Translations: [PROMETHAZINE HCL] Drug Allergy 05-03-20 13 Other (See Comments) [facility] Proton Pump Inhibitors (13 sources) dexlansoprazole; Translations: [DEXLANSOPRAZOLE] Drug Allergy 05-03-20 13 Hives [facility] Pseudoephedrine / Triprolidine (12 sources) Pseudoephedrine / Triprolidine Drug Allergy 05-11-20 13 Other (See Comments) [facility] Saccharin (12 sources) Saccharin Drug Allergy 06-17-19 [facility] Tamoxifen (13 sources) Tamoxifen; Translations: [TAMOXIFEN] Drug Allergy 05-11-20 13 Other (See Comments) [facility] (20 sources) Amitriptyline; Translations: [AMITRIPTYLINE HCL] Drug Allergy 05-11-20 13 Other (See Comments), Other: See Comments [facility] (20 sources) anastrozole; Translations: [ANASTROZOLE] Drug Allergy 05-11-20 13 Other (See Comments), Other: See Comments [facility] (20 sources) Aspirin / oxyCODONE Hydrochloride / oxyCODONE terephthalate; Translations: [OXYCODONE HES-UFYFKRLPU-FOD] Drug Allergy 05-03-20 13 Other (See Comments), Mental Status Change [facility] (20 sources) Atenolol; Translations: [ATENOLOL] Drug Allergy 05-11-20 13 Other (See Comments), Other: See Comments [facility] (20 sources) Brompheniramine / Phenylephrine; Translations: [BROMPHENIRAMINE-P HENYLEPHRINE] Drug Allergy 05-11-20 13 Other (See Comments), Other: See Comments [facility] (20 sources) Caffeine; Translations: [CAFFEINE] Drug Allergy 06-17-19 07 Intolerance [facility] (7 sources) Calcium; Translations: [CALCIUM] Drug Allergy 08-23-19 21 Other (See Comments) [facility] (20 sources) CHYMOTRYPSIN; Translations: [CHYMOTRYPSIN] Drug Allergy 05-11-20 13 Other (See Comments), Other: See Comments [facility] (20 sources) cloNIDine; Translations: [CLONIDINE] Drug Allergy 05-11-20 13 Other (See Comments), Other: See Comments [facility] (20 sources) Codeine; Translations: [CODEINE] Drug Allergy 05-11-20 Other (See Comments), Other: See Comments [facility] (20 sources) dexlansoprazole; Translations: [DEXLANSOPRAZOLE] Drug Allergy 05-03-20 13 Hives [facility] (20 sources) Doxycycline; Translations: [DOXYCYCLINE CALCIUM] Drug Allergy 05-11-20 13 Other (See Comments), Other: See Comments [facility] (20 sources) Estrogens, Esterified (SKILLED NURSING); Translations: [ESTERIFIED ESTROGENS] Drug Allergy 05-11-20 13 Hives, Other (See Comments), Other: See Comments [facility] (20 sources) exemestane; Translations: [EXEMESTANE] Drug Allergy 05-11-20 13 Other (See Comments), Other: See Comments [facility] (20 sources) fexofenadine; Translations: [FEXOFENADINE] Drug Allergy 05-11-20 13 Other (See Comments), Other: See Comments [facility] (7 sources) fluticasone; Translations: [FLUTICASONE] Drug Allergy 08-23-19 21 Other (See Comments) [facility] (20 sources) hydrOXYzine; Translations: [HYDROXYZINE] Drug Allergy 05-03-20 13 Other (See Comments), Contraindicati on-Medical Surgical [facility] (6 sources) Ibuprofen; Translations: [IBUPROFEN] Drug Allergy 06-17-19 07 [facility] (20 sources) Latex; Translations: [LATEX] Propensity to adverse reactions to drug 03-25-20 06 Rash, Other: See Comments [facility] (20 sources) Losartan; Translations: [LOSARTAN POTASSIUM] Drug Allergy 05-03-20 13 Other (See Comments), Intolerance [facility] (20 sources) Morphine; Translations: [MORPHINE] Drug Allergy 06-17-19 07 [facility] (20 sources) Penicillins; Translations: [PENICILLINS] Propensity to adverse reactions to drug 06-17-19 [facility] (20 sources) Perphenazine; Translations: [PERPHENAZINE] Drug Allergy 05-11-20 13 Other (See Comments), Other: See Comments [facility] (20 sources) predniSONE; Translations: [PREDNISONE] Drug Allergy 05-11-20 13 Other (See Comments), Other: See Comments [facility] (20 sources) Promethazine; Translations: [PROMETHAZINE HCL] Drug Allergy 05-03-20 13 Other (See Comments), Mental Status Change [facility] (20 sources) Pseudoephedrine / Triprolidine; Translations: [TRIPROLIDINE-PSEU DOEPHEDRINE] Drug Allergy 05-11-20 13 Other (See Comments), Other: See Comments [facility] (20 sources) Saccharin; Translations: [SODIUM SACCHARIN] Drug Allergy 06-17-19 07 Intolerance [facility] (20 sources) Tamoxifen; Translations: [TAMOXIFEN] Drug Allergy 05-11-20 Other (See Comments), Other: See Comments [facility] (20 sources) Norethindrone-E.Es tradiol-Iron; Translations: [NORETHINDRONE-E.E STRADIOL-IRON] Propensity to adverse reactions to drug 05-11-20 13 Other (See Comments), Other: See Comments [facility] (20 sources) Ct: Iodinated Contrast- Oral And Iv Dye; Translations: [CT: IODINATED CONTRAST- ORAL AND IV DYE] Propensity to adverse reactions to drug 05-11-20 13 Rash [facility] (20 sources) Adhesive Tape-Silicones; Translations: [ADHESIVE TAPE-SILICONES] Propensity to adverse reactions to drug 06-17-19 07 [facility] (20 sources) Vitamin; Translations: [VITAMIN] Propensity to adverse reactions to drug 05-11-20 13 Other (See Comments), Other: See Comments [facility] (17 sources) Acetaminophen / Codeine; Translations: [ACETAMINOPHEN-COD EINE] Drug Allergy 05-11-20 13 Other: See Comments [facility] (17 sources) Adhesive Tape; Translations: [ADHESIVE TAPE (ROSINS)] Propensity to adverse reactions 06-17-19 07 Intolerance [facility] Work Phone: (17 sources) Brompheniramine / Pseudoephedrine; Translations: [BROMPHENIRAMINE-P SEUDOEPHEDRIN] Drug Allergy 05-11-20 13 Other: See Comments [facility] (17 sources) Contrast media; Translations: [CONTRAST DYE] Drug Allergy 05-11-20 13 Rash [facility] (17 sources) Estradiol; Translations: [ESTRADIOL] Drug Allergy 05-11-20 Hives, Swelling, Itching [facility] (17 sources) letrozole; Translations: [LETROZOLE] Drug Allergy 05-11-20 Other: See Comments [facility] (17 sources) tolterodine; Translations: [TOLTERODINE TARTRATE] Drug Allergy 05-11-20 Other: See Comments [facility] (4 sources) All Drugs [Other] Propensity to adverse reactions 04-08-20 Other: See Comments [facility] Medications Current Medications Medication Drug Class(es) Dates Sig (Normalized) Sig (Original) acetaminophen 325 mg / HYDROcodone bitartrate 5 mg oral tablet (2 sources) Opioid Agonist Start: 10-25-2020 End: 11-07-2020 HYDROcodone-acetam inophen (NORCO) 5-325 mg per tablet Indications: Spinal stenosis of lumbar region with neurogenic claudication , S/P lumbar fusion Take 1 (one) tablet by mouth every 4 (four) hours as needed (Days supply per fill: 7) . 42 tablet 0 10/31/2020 11/07/2020 Active atorvastatin 20 mg oral tablet (8 sources) HMG-CoA Reductase Inhibitor Start: 04-23-2022 End: 07-15-2023 take 1 tablet by mouth once daily atorvastatin (LIPITOR) 20 mg tablet Indications: Abnormal stress test Take 1 tablet by mouth once daily. 90 tablet 3 07/15/2022 07/15/2023 Active Completed/Discontinued Medications Medication Drug Class(es) Dates Sig (Normalized) Sig (Original) acetaminophen 325 mg oral tablet (15 sources) End: 08-22-2020 take 2 tablets by mouth every six hours as needed acetaminophen (TYLENOL) 325 mg tablet Indications: Breast cancer of upper-outer quadrant of left female breast (HCC) , Malignant neoplasm of upper-outer quadrant of left female breast (HCC) , Er+ MD+ carcinoma of breast, left (HCC) , Screening for breast cancer Take 650 mg by mouth every 6 hours as needed. 0 Active Problems Active Problems Problem Classification Problem Date Documented Date Episodic/Chronic Cancer of breast (14 sources) Malignant neoplasm of upper-outer quadrant of female breast; Translations: [Malignant neoplasm of upper-outer quadrant of left female breast] Onset: 08-18-2016 08-18-2016 Chronic Cardiac dysrhythmias (4 sources) Cardiac arrhythmia; Translations: [Cardiac arrhythmia, unspecified] Onset: 02-20-2022 02-20-2022 Chronic Coronary atherosclerosis and other heart disease (4 sources) Coronary arteriosclerosis; Translations: [Atherosclerotic heart disease of [place] coronary artery without angina pectoris] Onset: 02-20-2022 02-20-2022 Chronic Disorders of lipid metabolism (2 sources) Hyperlipidemia; Translations: [Hyperlipidemia, unspecified] Onset: 07-22-2022 Chronic Esophageal disorders (4 sources) Gastroesophageal reflux disease; Translations: [Gastro-esophageal reflux disease without esophagitis] Onset: 02-20-2022 02-20-2022 Chronic Essential hypertension (8 sources) Essential (primary) hypertension; Translations: [Hypertensive disorder] Onset: 01-28-2022 Chronic Immunizations and screening for infectious disease (1 source) Viral screening status; Translations: [Encounter for screening for other viral diseases] Episodic Osteoarthritis (20 sources) Degenerative joint disease of ankle AND/OR foot; Translations: [Primary osteoarthritis, unspecified ankle and foot] Onset: 06-22-2009 06-22-2009 Chronic Other connective tissue disease (8 sources) History of lumbar fusion; Translations: [Arthrodesis status] Onset: 10-31-2020 Episodic Other connective tissue disease (3 sources) Other specified enthesopathies of unspecified lower limb, excluding foot; Translations: [Oth enthesopathies of unspecified lower limb, excluding foot] Onset: 01-31-2022 Episodic Other nutritional; endocrine; and metabolic disorders (14 sources) Obesity; Translations: [Obesity, unspecified] Onset: 11-02-2012 11-02-2012 Chronic Other nutritional; endocrine; and metabolic disorders (4 sources) Body mass index 40+ - severely obese; Translations: [Morbid (severe) obesity due to excess calories] Onset: 02-20-2022 02-20-2022 Chronic Residual codes; unclassified (4 sources) Sleep apnea; Translations: [Sleep apnea, unspecified] Onset: 02-20-2022 02-20-2022 Chronic Residual codes; unclassified (3 sources) History of excision of lamina of lumbar vertebra for decompression of spinal cord; Translations: [History of lumbar laminectomy for spinal cord decompression] Episodic Spondylosis; intervertebral disc disorders; other back problems (17 sources) Cervical spondylosis without myelopathy; Translations: [Spondylosis without myelopathy or radiculopathy, cervical region] Onset: 10-21-2007 10-21-2007 Chronic Unclassified (2 sources) History of lumbar laminectomy; Translations: [Status post lumbar laminectomy] Onset: 08-22-2020 08-22-2020 Past or Other Problems Problem Classification Problem Date Documented Date Episodic/Chronic Cardiac dysrhythmias (4 sources) Palpitations; Translations: [Palpitations] Onset: 01-28-2022 Episodic Other connective tissue disease (14 sources) Impingement syndrome of shoulder region; Translations: [Impingement syndrome of unspecified shoulder] Onset: 08-10-2012 08-10-2012 Episodic Other connective tissue disease (1 source) Trigger thumb, left thumb; Translations: [Trigger thumb, left thumb] Onset: 07-23-2022 Episodic Other non-traumatic joint disorders (1 source) Other instability, left hand; Translations: [Other instability, left hand] Onset: 07-23-2022 Episodic Other screening for suspected conditions (not mental disorders or infectious disease) (4 sources) Abnormal result of other cardiovascular function study; Translations: [Cardiovascular stress test abnormal] Onset: 02-17-2022 Episodic Residual codes; unclassified (16 sources) History of lumbar laminectomy; Translations: [Other specified postprocedural states] Onset: 08-22-2020 Episodic Spondylosis; intervertebral disc disorders; other back problems (20 sources) Lumbar radiculopathy; Translations: [Spinal stenosis of lumbar region] Onset: 10-21-2007 08-22-2020 Episodic Sprains and strains (14 sources) Sprain of ankle; Translations: [Sprain of unspecified ligament of unspecified ankle, initial encounter] Onset: 03-15-2008 03-15-2008 Episodic Results Test Name Value Interpretation Reference Range Facil ity Vital Signs Date Time Vital Sign Value Performing Clinician Attila stauffer 07-15-2022 10:29-0500 Body height 167.6 cm Scarlett Bell DO Work Phone: [facility] 07-15-2022 10:29-0500 Body weight 117.48 kg Scarlett eBll DO Work Phone: [facility] 07-15-2022 10:29-0500 Diastolic blood pressure 78 mm[Hg] Scarlett Bell DO Work Phone: [facility] 07-15-2022 10:29-0500 Heart rate 57 /min Scarlett Bell DO Work Phone: [facility] 07-15-2022 10:29-0500 SaO2% (BldA) [Mass fraction] 97 % Scarlett Bell DO Work Phone: [facility] 07-15-2022 10:29-0500 Systolic blood pressure 148 mm[Hg] Scarlett Bell DO Work Phone: [facility] 02-12-2022 09:55-0400 Body height 167.6 cm Jeanette Boogie PEDIATRIC ANESTHESIOLOGIST.DIETETIC TECHNICIAN Work Phone: [facility] 02-12-2022 09:55-0400 Body weight 116.03 kg Jeanette Boogie PEDIATRIC ANESTHESIOLOGIST.DIETETIC TECHNICIAN Work Phone: [facility] 02-12-2022 09:55-0400 Diastolic blood pressure 60 mm[Hg] Jeanette Boogie PEDIATRIC ANESTHESIOLOGIST.DIETETIC TECHNICIAN Work Phone: [facility] 02-12-2022 09:55-0400 Heart rate 66 /min Jeanette Boogie PEDIATRIC ANESTHESIOLOGIST.DIETETIC TECHNICIAN Work Phone: [facility] 02-12-2022 09:55-0400 SaO2% (BldA) [Mass fraction] 97 % Jeanette Boogie PEDIATRIC ANESTHESIOLOGIST.DIETETIC TECHNICIAN Work Phone: [facility] 02-12-2022 09:55-0400 Systolic blood pressure 116 mm[Hg] Jeanette Boogie PEDIATRIC ANESTHESIOLOGIST.DIETETIC TECHNICIAN Work Phone: [facility] 01-22-2022 12:41-0400 Diastolic blood pressure 77 mm[Hg] Pacc 1 Work Phone: [facility] 01-22-2022 12:41-0400 Systolic blood pressure 126 mm[Hg] Pacc 1 Work Phone: [facility] 01-22-2022 12:40-0400 Body weight 115.12 kg Pacc 1 Work Phone: [facility] 01-22-2022 12:40-0400 Heart rate 64 /min Pacc 1 Work Phone: [facility] 01-22-2022 12:40-0400 Respiratory rate 18 /min Pacc 1 Work Phone: [facility] 01-22-2022 12:40-0400 SaO2% (BldA) [Mass fraction] 96 % Pacc 1 Work Phone: [facility] 11-07-2021 12:41-0400 Body height 167.6 cm Sivakumar Whatley DIETETIC TECHNICIAN Work Phone: [facility] 11-07-2021 12:41-0400 Body mass index (BMI) [Ratio] 42.93 kg/m2 Sivakumar Whatley DIETETIC TECHNICIAN Work Phone: [facility] 11-07-2021 12:41-0400 Body weight 120.66 kg Sivakumar Whatley DIETETIC TECHNICIAN Work Phone: [facility] 11-07-2021 12:41-0400 Diastolic blood pressure 88 mm[Hg] Sivakumar Brown DIETETIC TECHNICIAN Work Phone: [facility] 11-07-2021 12:41-0400 Heart rate 66 /min Sivakumar Whatley DIETETIC TECHNICIAN Work Phone: [facility] 11-07-2021 12:41-0400 SaO2% (BldA) [Mass fraction] 94 % Sivakumar Whatley DIETETIC TECHNICIAN Work Phone: [facility] 11-07-2021 12:41-0400 Systolic blood pressure 155 mm[Hg] Sivakumar Brown DIETETIC TECHNICIAN Work Phone: [facility] 05-09-2021 13:29-0500 Body height 167.6 cm Sivakumar Whatley DIETETIC TECHNICIAN Work Phone: [facility] 05-09-2021 13:29-0500 Body mass index (BMI) [Ratio] 42.93 kg/m2 Sivakumar Brown DIETETIC TECHNICIAN Work Phone: [facility] 05-09-2021 13:29-0500 Body weight 120.66 kg Sivakumar Whatley CNP Work Phone: [facility] 05-09-2021 13:29-0500 Diastolic blood pressure 83 mm[Hg] Sivakumar Whatley DIETETIC TECHNICIAN Work Phone: [facility] 05-09-2021 13:29-0500 Heart rate 63 /min Sivakumar Whatley DIETETIC TECHNICIAN Work Phone: [facility] 05-09-2021 13:29-0500 SaO2% (BldA) [Mass fraction] 97 % Sivakumar Whatley DIETETIC TECHNICIAN Work Phone: [facility] 05-09-2021 13:29-0500 Systolic blood pressure 157 mm[Hg] Sivakumar Whatley DIETETIC TECHNICIAN Work Phone: [facility] 02-07-2021 12:52-0400 Body height 167.6 cm Sivakumar Whatley DIETETIC TECHNICIAN Work Phone: [facility] 02-07-2021 12:52-0400 Body mass index (BMI) [Ratio] 42.93 kg/m2 Sivakumar Whatley DIETETIC TECHNICIAN Work Phone: [facility] 02-07-2021 12:52-0400 Body weight 120.66 kg Sivakumar Whatley CNP Work Phone: [facility] 02-07-2021 12:52-0400 Diastolic blood pressure 90 mm[Hg] Sivakumar Whatley DIETETIC TECHNICIAN Work Phone: [facility] 02-07-2021 12:52-0400 Heart rate 73 /min Sivakumar Whatley DIETETIC TECHNICIAN Work Phone: [facility] 02-07-2021 12:52-0400 Systolic blood pressure 148 mm[Hg] Sivakumar Whatley DIETETIC TECHNICIAN Work Phone: [facility] 11-01-2020 12:30-0400 Heart rate 60 /min Cherise Prieto MD Work Phone: [facility] 11-01-2020 11:01-0400 Body temperature 98.01 [degF] Cherise Prieto MD Work Phone: [facility] 11-01-2020 11:01-0400 Diastolic blood pressure 60 mm[Hg] Cherise Prieto MD Work Phone: [facility] 11-01-2020 11:01-0400 Respiratory rate 16 /min Cherise Prieto MD Work Phone: [facility] 11-01-2020 11:01-0400 SaO2% (BldA) [Mass fraction] 99 % Cherise Prieto MD Work Phone: [facility] 11-01-2020 11:01-0400 Systolic blood pressure 116 mm[Hg] Cherise Prieto MD Work Phone: [facility] 11-01-2020 00:08-0400 Body mass index (BMI) [Ratio] 43.02 kg/m2 Cherise Prieto MD Work Phone: [facility] 11-01-2020 00:08-0400 Body weight 120.9 kg Cherise Prieto MD Work Phone: [facility] 10-25-2020 16:58-0400 Body height 167.6 cm Cherise Prieto MD Work Phone: [facility] 09-10-2020 14:24-0400 Body height 167.6 cm Cherise Prieto MD Work Phone: [facility] 09-10-2020 14:24-0400 Body mass index (BMI) [Ratio] 41.97 kg/m2 Cherise Prieto MD Work Phone: [facility] 09-10-2020 14:24-0400 Body weight 117.94 kg Cherise Prieto MD Work Phone: [facility] 09-10-2020 14:24-0400 Diastolic blood pressure 85 mm[Hg] Cherise Prieto MD Work Phone: [facility] 09-10-2020 14:24-0400 Heart rate 69 /min Cherise Prieto MD Work Phone: [facility] 09-10-2020 14:24-0400 SaO2% (BldA) [Mass fraction] 97 % Cherise Prieto MD Work Phone: [facility] 09-10-2020 14:24-0400 Systolic blood pressure 197 mm[Hg] Cherise Prieto MD Work Phone: [facility] 08-22-2020 15:10-0400 BMI (Body Mass Index) 41.97 kg/m2 Cherise Speer [facility] 08-22-2020 [id number]:100400 Body weight 117.94 kg Cherise Sheila [facility] 08-22-2020 15:10-0400 BP Diastolic 72 mm[Hg] Cherise [facility] 08-22-2020 15:10-0400 BP Systolic 172 mm[Hg] [facility] 08-22-2020 15:100400 Height 167.6 cm [facility] 08-22-2020 15:10-0400 Pulse (Heart Rate) 65 /min [facility] 08-22-2020 15:10-0400 Pulse Oximetry 97 % [facility] Encounters Encounter Date Encounter Type Care Provider Facility Start: 02-20-2023 End: 02-21-[address] LAKHWIDNER PHAM DO Facility:B Start: 02-20-2023 End: 02-20-[address] LAKHWINDER PHAM DO [facility] Start: 02-12-2023 Telephone encounter Scarlett Bell DO Work Phone: Cardiology Procedures Date Procedure Procedure Detail Performing Clinician Start: 07-22-2022 Lipid 1996 panel - S marco antonio or Plasma Scarlett Bell DO Work Phone: Start: 01-31-2022 Mri any jt lower ext rem w/o contrast matrl Lakhwinder Pham MD Work Phone: Start: 01-28-2022 Myocardial spect mul tiple studies Scarlett Bell DO Work Phone: Start: 01-22-2022 End: 01-22-2022 Antibody screen Pacc 1 Work Phone: Plan of Treatment Date Care Activity Detail Author Start: 07-22-2027 Lipid 1996 panel - Serum or Plasma Lipid Screening [facility] Start: 01-28-2027 LIPID SCREEN LIPID SCREEN [facility] Start: 02-21-2025 DIABETES SCREEN DIABETES SCREEN [facility] Start: 02-21-2025 Diabetes Screening Diabetes Screening [facility] Start: 01-22-2025 DIABETES SCREEN DIABETES SCREEN [facility] Start: 07-22-2023 Hepatitis B surface antibody level LDL Cholesterol [facility] Start: 02-12-2023 BP CONTROLLED (<130/80) BP CONTROLLED (<130/80) [facility] Start: 01-28-2023 Hepatitis B surface antibody level LDL CHOLESTEROL [facility] Start: 01-23-2023 Influenza vaccination Influenza Vaccine (#[facility]) [facility] Start: 01-22-2023 BP CONTROLLED (<130/80) BP CONTROLLED (<130/80) [facility] Start: 09-10-2022 Screening for malignant neoplasm of breast Mammogram [facility] Start: 07-15-2022 End: 09-14-2022 Lipid 1996 panel - Serum or Plasma LIPID PANEL BASIC Lab Routine Abnormal stress test Hyperlipidemia, unspecified hyperlipidemia type Hypertension, unspecified type Palpitations Expected: 07/15/2022, Expires: 09/14/2022 [facility] Work Phone: Payers Date Payer Category Payer Medicare [employer] MEDICARE A ETNA MEDICARE PPO [id number] 2021-Present [phone] [address] [place] [address] [facility] [id number] 2020 Medicare [id number] 2020 Medicare [id number] 2020 Medicare [id number] 2020 Medicare [id number] 1950 Unknown [id number] [id number] 03 1950 Unknown [id number] 2.16.840.1.673100.3.579.2.9 03 1950 Unknown [id number] [id number] 00 1950 Unknown [id number] 2.16.840.1.647838.3.579.2.9 03 1950 Unknown [id number] 2.16.840.1.688671.3.579.2.9 03 1950 Unknown [id number] 2.16.840.1.541310.3.579.2.9 03 1950 Unknown [id number] 2.16.840.1.974981.3.579.2.9 03 1950 Unknown [id number] 2.16.840.1.674311.3.579.2.9 03 1950 Unknown [id number] 2.16.840.1.103845.3.579.2.9 03 1950 Unknown [id number] 2.16.840.1.192899.3.579.2.9 03 1950 Unknown [id number] 2.16.840.1.345633.3.579.2.9 03 1950 Unknown [id number] 2.16.840.1.641174.3.579.2.6 68 1950 Unknown [id number] 2.16.840.1.514697.3.579.2.6 51 1950 Unknown [id number] 2.16.840.1.691464.3.579.2.6 51 1950 Unknown [id number] 2.16.840.1.327230.3.579.2.6 27 Private Health Insurance Unknown [id number] 2.16.840.1.571265.3.579.2.5 28 Unknown [id number] [id number] 28 Social History Date Type Detail Facility Tobacco smoking stat [facility] Unknown if ever smoked [facility] Start: 1950 Sex Assigned At Not on file [facility] Start: 08-31-2021 End: 02-20-2022 Exposure to SARS-CoV-2 (event) Not sure [facility] Start: 08-22-2020 End: 01-08-2022 Tobacco smoking status NHIS Never smoker [facility] Start: 08-22-2020 End: 01-08-2022 Tobacco use and exposure Never used [facility] Start: 08-22-2020 End: 11-07-2021 Alcohol intake Ex-drinker (finding) [facility] Start: 08-18-2016 End: 09-16-2021 Alcohol intake Current non-drinker of alcohol (finding) [facility] Start: 11-07-2021 End: 06-19-2022 Cigarette pack-years [facility] Start: 01-17-2022 End: 07-15-2022 Alcohol intake Lifetime non-drinker (finding) [facility] Tobacco smoking stat [facility] Tobacco smoking consumption unknown [facility] Work Phone: Start: 06-19-2022 End: 07-15-2022 Tobacco use panel [facility] National Score (1-100), lower number is lower risk 74 [facility] Medical Equipment Procedure Code Equipment Code Equipment Origin al Text Equipment Identifier Dates Bone Infuse Bone Graft Xsm - [id number], [id number] FDA Start: 10-25-2020 Hemostat 8 X 6.2 5cm X 10mm Surgifoam Gelatin Sponge - [id number], [id number] FDA Start: 10-25-2020 Sealant 5ml Hemostatic Matrix Fast Prep Floseal - [id number] [id number], [id number] FDA Start: 10-25-2020 Spacer 26 X 10 Capstone Spinal System - [id number] [id number] , [id number], [id number] FDA Start: 10-25-2020 Sealant 5ml Dura l Duraseal System - [id number] Start: 10-25-2020 6.5x50 Mm Screw [id number] Start: 10-25-2020 6.5x55 Mm Screw [id number] Start: 10-25-2020 Set Screws [id number] Start: 10-25-2020 Chase 5.5 X 40mm Pre-Bent Chromaloy Horizon Solera - [id number] Start: 10-25-2020 Okr-Rp-J-Kind Im plant - [id number], Ceramic Head 36mm, Type 1 Taper -3mm Neck [id number] Start: 02-20-2022 Stem Taperloc Microplasty 133d 11 Standard Offset Taper Pps 107.5mm Femoral - [id number] Start: 02-20-2022 Screw Trilogy 6. 5mm Tivanium 25mm Bone Self Tap Sterile Hip Cortical - [id number] Start: 02-20-2022 Clinical Notes 09-10-2020 to 02-12-2023 Telephone Encounter - Johnson [place] RN - 02/12/2023 1:17 PM EDTTelephone Encounter - Lisbet Rosas - 02/12/2023 12:07 PM Caroline Bell DO - 07/15/2022 10:08 AM ESTPatient Instructions Note Date & Type Note Facility 02-12-2023 Miscellaneous Notes Called Cassie branham talked to rep Atorvastatin 20 mg was shipped yesterday Called PT left VM Patient states she needs a refill of atorvastatin. Looks like it was refilled to [facility] Jun 2022 and is good until Jun 2023. Patient states she spoke with Cassie Branham and they told her to call her doctor and that they can't refill it. Patient is asking for refill to be sent to [facility]. Please advise documented in this encounter [facility] 07-15-2022 Note HNO ID: [id number] Author: Scarlett Bell, DO Service: ? Author Type: Physician Type: Progress Notes Filed: 07/15/2022 10:51 AM Note Text: [facility] [place] Cecilia Sawant Department of Cardiovascular Medicine SECTION OF REGIONAL CARDIOLOGY [facility] 09/16/2021-consult HPI: Dulce Peñaloza is a 71 year old female who is here today for palpitations and follow up. She states her mother of a heart attack possibly in her 60s and her father had CABG in his 60s. She denies any exertional chest discomfort however when she lays on her left side she gets a pounding fast heartbeat and chest discomfort. Last seen in January for preoperative cardiac evaluation and had a myocardial perfusion imaging stress test then with report of small LAD ischemia. She was sent for left heart catheterization with Dr. Harvey and this showed only a 35% mid LAD stenosis otherwise was normal. She subsequently underwent total hip arthroplasty on 02/20/2022 without complication. She got 100% relief of pain since then. She did have thumb surgery also for arthritis in May 2022 and did well. The patient denies any regular aerobic exercise Patient denies dizziness, lightheadedness, lower extremity edema, PND, orthopnea, presyncope, syncope or claudication symptoms. Prior Hx: 01/08/22 She states that when she takes certain pills her heart beats fast or irregular. She notes this with most pills she takes and it can last for hours. It continues until she stops taking the medicine. PAST MEDICAL HISTORY Diagnosis Date Allergy 12/2021, PT STATES HAS SO MANY ALLERGIES THAT AFFECT HER HEART AND HEART RATE, SHE WENT TO SEE A HOSPITAL ACCOUNT MANAGER FOR THE FIRST TIME 12/2021 DR BELL, TO BE WORKED UP. Arthritis JUDI HIP/KNEES, SPINE CHRONIC PAIN Breast cancer (HCC) LEFT SIDE BREAST CA/LUMPECTOMY AND RADIATION 2009 DDD (degenerative disc disease), lumbar GERD (gastroesophageal reflux disease) PER PRIMARY Unspecified essential hypertension Essential hypertension Unspecified sleep apnea Sleep apnea, NON COMPLIANT WITH CPAP, LAST STUDY >12 YEARS AGO, PER PRIMARY MD PAST SURGICAL HISTORY Procedure Laterality Date BREAST LUMPECTOMY HX Left 04/2010 RADIATION LAMINECTOMY,LUMBAR X4 LAP ZELALEM W EXPLORATION OF CD NECK SPINE DISK SURGERY DISCECTOMY ADDL FUSION LUMBAR PAST SURGICAL HISTORY OF Left LEFT KNEE SCOPE PAST SURGICAL HISTORY OF Right RIGHT FOOT AND ANKLE SURGICAL ALIGNMENT PAST SURGICAL HISTORY OF Right BUNIONECTOMY RIGHT PAST SURGICAL HISTORY OF TRIGGER FINGER X2 REVISE MEDIAN N/CARPAL TUNNEL SURG Bilateral TOTAL ABDOMINAL HYSTERECT W/WO RMVL TUBE OVARY FAMILY HISTORY Problem Relation Age of Onset Heart Mother other (diabetes) Mother other (htn) Mother Heart Father Alzheimer's Disease Father other (mesotheliloma) Father other (thyroid cancer) Sister SOCIAL HISTORY Social History Tobacco Use Smoking status: Never Smokeless tobacco: Never Substance Use Topics Alcohol use: Never Drug use: Never ALLERGIES: Kapidex [Dexlansoprazole], Losartan Potassium, Percodan [Oxycodone Ach-Ogqalcdty-Kjg], Phenergan [Promethazine Hcl], Acetaminophen-Codeine, Actifed [Triprolidine-Pseudoephedrine], Adhesive Tape (Rosins), Anastrozole, Aromasin [Exemestane], Atenolol, Bromfed [Brompheniramine-Phenylephrine], Caffeine, Chymotrypsin, Clonidine, Codeine, Contrast Dye, Detrol [Tolterodine Tartrate], Dimetapp [Brompheniramine-Pseudoephedrin] , Elavil [Amitriptyline Hcl], Estrace [Estradiol], Estratab [Esterified Estrogens], Femara [Letrozole], Fexofenadine, Latex, Loestrin 24 Fe [Norethindrone-E.Estradiol-Iron] , Morphine, Penicillins, Prednisone, Sweeta Concentrate [Sodium Saccharin], Tamoxifen, Trilafon [Perphenazine], Vibramycin [Doxycycline Calcium], and Hydroxyzine CURRENT MEDICATIONS: Current Outpatient Medications Medication Sig atorvastatin (LIPITOR) 20 mg tablet Take 1 tablet by mouth once daily. aspirin, enteric coated (ASPIRIN, ENTERIC COATED) 325 mg EC tablet Take 1 tablet by mouth twice daily with meals. oxyCODONE IR (ROXICODONE) 5 mg immediate release tablet Take 1-2 tablets by mouth every 6 hours as needed. traMADol (ULTRAM) 50 mg tablet Take 1 tablet by mouth every 6 hours. ibuprofen (MOTRIN) 600 mg tablet Take 600 mg by mouth every 6 hours as needed. LAST DOSE 15 DAYS PRE OP PER DR DULIK omeprazole (PRILOSEC) 40 mg capsule Take 40 mg by mouth once daily. AM cholecalciferol (VITAMIN D3) 5,000 unit tab Take 4,000 Units by mouth once daily. AM Last dose 02/06 acetaminophen (TYLENOL) 325 mg tablet Take 650 mg by mouth every 6 hours as needed. aliskiren (TEKTURNA) 150 mg tablet Take 150 mg by mouth twice daily. PER PRIMARY AM AND AT 1700 metoprolol succinate XL, long acting, 25 mg 24 hr tablet Take 25 mg by mouth twice daily. 25 MG AM 50MG BED TIME PER PRIMARY triamterene-hydroCHLOROt (more content not included)... [facility] 07-15-2022 History of Present illness Narrative Images from the original note were not included. [facility] [place] Cecilia Sawant Department of Cardiovascular Medicine SECTION OF REGIONAL CARDIOLOGY [facility] 09/16/2021-consult HPI: Dulce Peñaloza is a 71 year old female who is here today for palpitations and follow up. She states her mother of a heart attack possibly in her 60s and her father had CABG in his 60s. She denies any exertional chest discomfort however when she lays on her left side she gets a pounding fast heartbeat and chest discomfort. Last seen in January for preoperative cardiac evaluation and had a myocardial perfusion imaging stress test then with report of small LAD ischemia. She was sent for left heart catheterization with Dr. Harvey and this showed only a 35% mid LAD stenosis otherwise was normal. She subsequently underwent total hip arthroplasty on 02/20/2022 without complication. She got 100% relief of pain since then. She did have thumb surgery also for arthritis in May 2022 and did well. The patient denies any regular aerobic exercise Patient denies dizziness, lightheadedness, lower extremity edema, PND, orthopnea, presyncope, syncope or claudication symptoms. Prior Hx: 01/08/22 She states that when she takes certain pills her heart beats fast or irregular. She notes this with most pills she takes and it can last for hours. It continues until she stops taking the medicine. PAST MEDICAL HISTORY Diagnosis Date Allergy 12/2021, PT STATES HAS SO MANY ALLERGIES THAT AFFECT HER HEART AND HEART RATE, SHE WENT TO SEE A HOSPITAL ACCOUNT MANAGER FOR THE FIRST TIME 12/2021 DR BELL, TO BE WORKED UP. Arthritis JUDI HIP/KNEES, SPINE CHRONIC PAIN Breast cancer (HCC) LEFT SIDE BREAST CA/LUMPECTOMY AND RADIATION 2009 DDD (degenerative disc disease), lumbar GERD (gastroesophageal reflux disease) PER PRIMARY Unspecified essential hypertension Essential hypertension Unspecified sleep apnea Sleep apnea, NON COMPLIANT WITH CPAP, LAST STUDY >12 YEARS AGO, PER PRIMARY MD PAST SURGICAL HISTORY Procedure Laterality Date BREAST LUMPECTOMY HX Left 04/2010 RADIATION LAMINECTOMY,LUMBAR X4 LAP ZELALEM W EXPLORATION OF CD NECK SPINE DISK SURGERY DISCECTOMY ADDL FUSION LUMBAR PAST SURGICAL HISTORY OF Left LEFT KNEE SCOPE PAST SURGICAL HISTORY OF Right RIGHT FOOT AND ANKLE SURGICAL ALIGNMENT PAST SURGICAL HISTORY OF Right BUNIONECTOMY RIGHT PAST SURGICAL HISTORY OF TRIGGER FINGER X2 REVISE MEDIAN N/CARPAL TUNNEL SURG Bilateral TOTAL ABDOMINAL HYSTERECT W/WO RMVL TUBE OVARY FAMILY HISTORY Problem Relation Age of Onset Heart Mother other (diabetes) Mother other (htn) Mother Heart Father Alzheimer's Disease Father other (mesotheliloma) Father other (thyroid cancer) Sister SOCIAL HISTORY Social History Tobacco Use Smoking status: Never Smokeless tobacco: Never Substance Use Topics Alcohol use: Never Drug use: Never ALLERGIES: Kapidex [Dexlansoprazole], Losartan Potassium, Percodan [Oxycodone Igy-Zstgypmgz-Wjv], Phenergan [Promethazine Hcl], Acetaminophen-Codeine, Actifed [Triprolidine-Pseudoephedrine], Adhesive Tape (Rosins), Anastrozole, Aromasin [Exemestane], Atenolol, Bromfed [Brompheniramine-Phenylephrine], Caffeine, Chymotrypsin, Clonidine, Codeine, Contrast Dye, Detrol [Tolterodine Tartrate], Dimetapp [Brompheniramine-Pseudoephedrin] , Elavil [Amitriptyline Hcl], Estrace [Estradiol], Estratab [Esterified Estrogens], Femara [Letrozole], Fexofenadine, Latex, Loestrin 24 Fe [Norethindrone-E.Estradiol-Iron] , Morphine, Penicillins, Prednisone, Sweeta Concentrate [Sodium Saccharin], Tamoxifen, Trilafon [Perphenazine], Vibramycin [Doxycycline Calcium], and Hydroxyzine CURRENT MEDICATIONS: Current Outpatient Medications Medication Sig atorvastatin (LIPITOR) 20 mg tablet Take 1 tablet by mouth once daily. aspirin, enteric coated (ASPIRIN, ENTERIC COATED) 325 mg EC tablet Take 1 tablet by mouth twice daily with meals. oxyCODONE IR (ROXICODONE) 5 mg immediate release tablet Take 1-2 tablets by mouth every 6 hours as needed. traMADol (ULTRAM) 50 mg tablet Take 1 tablet by mouth every 6 hours. ibuprofen (MOTRIN) 600 mg tablet Take 600 mg by mouth every 6 hours as needed. LAST DOSE 15 DAYS PRE OP PER DR PHAM omeprazole (PRILOSEC) 40 mg capsule Take 40 mg by mouth once daily. AM cholecalciferol (VITAMIN D3) 5,000 unit tab Take 4,000 Units by mouth once daily. AM Last dose 02/06 acetaminophen (TYLENOL) 325 mg tablet Take 650 mg by mouth every 6 hours as needed. aliskiren (TEKTURNA) 150 mg tablet Take 150 mg by mouth twice daily. PER PRIMARY AM AND AT 1700 metoprolol succinate XL, long acting, 25 mg 24 hr tablet Take 25 mg by mouth twice daily. 25 MG AM 50MG BED TIME PER PRIMARY triamterene-hydroCHLOROthiazide (DYAZIDE) 37.5-25 mg per capsule Take 0.5 capsules by mouth once daily. 1/2 TABLET EVERY OTHER DAY (Patient not taking: Reported on 07/15/2022) Ascorbic Acid 500 mg cpER Take 500 mg by mouth twice daily. Last dose 02/06 (Patient not taking: Reported on 07/15/2022) Zinc 50 mg tab Take 50 mg by mouth once daily. AM Last dose 02/06 (Patient not taking: Reported on 07/15/2022) No current facility-administered medications for this visit. ROS: Card: See present history. Pulm: See HPI Gastro: No nausea, vomiting, or diarrhea GenUr: No history of dysuria, frequency or incontinence Endo: Negative for cold or heat intolerance, polyuria or polydipsia. Neuro: no focal weakness, focal sensory loss, headache, visual changes, seizure activity, ataxia, speech/language loss. Musculoskeletal: pending possible treatment for multiple orthopedic issues Infect: no fevers, chills, rigors or night sweats. Skin: Negative for lesions, rash, and itching. Heme: Negative for prolonged bleeding, bruising easily or swollen nodes. The remainder of the review of systems is negative. PHYSICAL EXAMINATION: GENERAL: alert cooperative, pleasant oriented x 3 (self, time and place) in no acute distress obese BP 148/78 Pulse (!) 57 Ht 167.6 cm (5' 6 ) Wt 117.5 kg (259 lb) SpO2 97% BMI 41.80 kg/m Last 3 Encounter BP Readings: Date: BP: 09/16/2021 132/70 06/02/2019 176/96 08/18/2016 146/87 Last 3 Encounter Pulse Readings: Date: Pulse: 09/16/2021 79 06/02/2019 63 08/18/2016 60 Last 3 Encounter Wt Readings: Date: Wt: 09/16/2021 121.6 kg (268 lb) 06/02/2019 120.7 kg (266 lb) 08/18/2016 117.3 kg (258 lb 8 oz) SKIN: warm, dry, no rash. NECK: supple, no palpable masses, no JVD, carotids well felt, no bruits. CARDIAC: [place] palpable in the 5th intercostal space mid clavicular line, normal S1 and S2, no murmurs, gallops, or rubs. CHEST: Normal respiratory efforts, lungs clear to auscultation bilaterally. ABDOMEN: Soft, no tenderness, rigidity, or masses. No palpable liver or spleen. Normal bowel sounds, no bruits. NEURO: intact cranial nerves II through XII, no motor or sensory deficits in all 4 extremities. EXTREMITIES: No cyanosis, clubbing, or edema. Peripheral pulses well felt. Left forearm and hand in cast with recent surgery. CARDIAC (& OTHER IMPORTANT) TESTING: LHC 02/17/22, [place] Mid LAD 35% otherwise normal coronaries SPECT 01/28/2022: CONCLUSIONS: 1. SPECT Perfusion Study: Abnormal. 2. No evidence of scarred myocardium. 3. There is mild (<10%) ischemia in the territory of the LAD. 4. Left ventricle is normal in size. The left ventricle systolic function is normal. 5. This is an intermediate risk scan. Gated Stress IR:3D LVEF % 75 Echo 10/17/2021: CONCLUSIONS: - Exam indication: Palpitations - The left ventricle is small. Left ventricular systolic function is normal. EF = 60 5% (2D biplane) Grade I left ventricular diastolic dysfunction. - The right ventricle is normal in size. Right ventricular systolic function is normal. - There are no significant valvular abnormalities. - The patient has not had a prior CC echocardiographic exam for comparison. monitor 09/16/2021- _Patient Name: Dulce Peñaloza : 1950 Ordering Provider: Scarlett Bell Indication: R00.2 Palpitations Type of Monitor: Extended Monitoring-Zio Patch Enrollment Dates: 09/16/2021-09/29/2021 Findings Final Interpretation Patient had a min HR of 47 bpm(, max HR of 179 bpm, and avg HR of 69 bpm. Predominant underlying rhythm was Sinus Rhythm. 19 Supraventricular Tachycardia runs occurred, the run with the fastest interval lasting 20 beats with a max rate of 179 bpm, the longest lasting 13.7 secs with an avg rate of 139 bpm. Isolated SVEs were rare (<1.0%), SVE Couplets were rare (<1.0%), and SVE Triplets were rare (<1.0%). Isolated VEs were rare (<1.0%), VE Couplets were rare (<1.0%), and no VE Triplets were present. Ventricular Bigeminy and Trigeminy were present. Symptoms of pounding, chest pressure, skipped with NSR LABS: Cholesterol, Total (mg/dL) Date Value 01/28/2022 188 HDL Cholesterol (mg/dL) Date Value 01/28/2022 40 LDL Cholesterol (mg/dL) Date Value 01/28/2022 122 Triglyceride (mg/dL) Date Value 01/28/2022 128 ASSESSMENT/PLAN: Palpitations No recurrence Echocardiogram unremarkable 14-day monitor with episodes of brief pSVT without symptoms Symptoms on monitor c/w NSR. Hypertension Good control at home on Tekturna and Metoprolol Hyperlipidemia Started atorvastatin at prior visit for LDL elevated and higher risk Need to recheck lipid levels. Abnormal MPI but normal LHC other than 35% mid LAD I reviewed her symptoms and risk factors in detail. We did also discuss the importance of weight loss and a heart healthy lifestyle. I have reviewed her echo that was relatively unremarkable and her 14 day monitor that only showed some brief episodes of pSVT with the longest of around 13 seconds. She did not have symptoms during these events and the symptoms she did have were during NSR. It is reasonable to continue a conservative approach for these events unless she is very symptomatic. She should avoid caffeine and stimulants as well as try to exercise more consistently. We will recheck LDL on statin and follow in 1 year or as needed. Thank you for allowing me the privilege of participating in the care of your patient. Please do not hesitate to contact me if there are any questions. Scarlett Bell DO, FACC, FCCP, FACOI CC: MD Betsy Ferguson [address] [facility] [id number] documented in this encounter [facility] 05-14-2022 Miscellaneous Notes Records faxed. [facility] called from Pre Admission Testing asking us to fax them the patient's Echo, stress test, and Cath placement information. Please fax to [facility] Pre Admission Testing, [facility], at [phone]. documented in this encounter [facility] 02-21-2022 Note HNO ID: [id number] Author: oZ Oliver RN Service: Care Management Author Type: Registered Nurse Type: Care Mgt Initial Assessment Filed: 02/21/2022 12:58 PM Note Text: CARE MANAGEMENT: ASSESSMENT AND DISCHARGE PLAN SERVICE DATE: February 21, 2022 SERVICE TIME: 1140 PRIMARY CARE PHYSICIAN: Mohan Kat MD Primary Contact: Extended Emergency Contact Information Primary Emergency Contact: Umair Peñaloza Address: [address] [place] [address] [place] [address] [facility] Relation: Spouse ADMISSION STATUS: Extended Recovery Insurance Provider: [employer] MEDICARE PPO NEEDS PRIOR TO DISCHARGE Needs Prior to Discharge: Home Care Order;Equipment Delivery POTENTIAL TRANSITION PLANS Home Care Based on clinical judgement, Care Management will address the following needs: Functional Patient's perception of need for this admission: scheduled surgery ADVANCE DIRECTIVES Current Advance Directive: Health Care Power of Sizer Hand In Chart: No MS/BEHAVIOR Baseline Mental Status Prior to this Illness what was the patient's Baseline Mental Status?: Alert AND Oriented Relationship of the informant to the patient:: Self READMISSION Last Discharge Date: 02/17/22 Is this Within the Past 30 days? From what level of care did patient present?: Home Last discharge within 30 days: No PATIENT SCREEN Patient/Police Communications Dispatcher Stated Goals: To improve my functional status Under the care of a PCP?: Yes, External Provider Provider Name: Dr. Kat Last Known Visit: this month Does the patient have transportation upon discharge?: Yes Use of any community resources?: No Does the patient have a stable and supportive living arrangement and home setting?: Yes Situation: Lives at home with Are there any potential risks or gaps identified by risk/functional/fall,etc. scores in the EMR?: No Any potential risks related to substance abuse and/or behavioral health?: No Based on clinical judgement, Care Management will address the following needs: Functional CAREGIVER ASSESSMENT Caregiver is ready, willing and able to meet the patient's needs as recommended by the inter-professional team:: Yes Name of Caregiver: Umair JOSEPH No medical discharge barriers identified at this time. No social discharge barriers identified at this time. No behavioral/cognitive discharge barriers identified at this time. FREEDOM OF CHOICE EXPLAINED: Are you interested in bedside delivery of your medications? No ASSESSMENT AND PLAN: Spoke with pt at bedside. POD #1 right total hip. PT/OT recommending HHC and referral placed for same. States will need a wide walker for home. Will notify nursing of same. Pt states no preference in DME provider. D/C plan is home with . No other needs at this time. SIGNATURE: Zo Oliver RN PATIENT NAME: Dulce Peñaloza DATE: February 21, 2022 TIME: 12:48 PM CONTACT #: [id number] [facility] 02-21-2022 Note HNO ID: [id number] Author: Rolf Shelley PA-C Service: ? Author Type: Physician Tanker Truck Driver Type: Progress Notes Filed: 02/21/2022 7:39 AM Note Text: ORTHOPAEDIC SURGERY POSTOP PROGRESS NOTE Surgery Date: 02/20/2022 Surgeon(s) and Tanker Truck Driver(s): Surgeon(s) and Role: * Lakhwinder Pham, DO - Primary * Rita Shultz DO - Resident - Assisting Procedure(s): Procedure(s) (LRB): RIGHT TOTAL HIP REPLACEMENT- ANTERIOR SUPINE INCISION (Right) Subjective: Patient doing well. Patient is sitting up resting comfortably in bed. Patient denies any chest pain or shortness of breath. Patient denies any calf pain or tenderness. Patient denies any lightheadedness or dizziness. Patient denies any nausea or vomiting. Currently rates the pain approximately 4 out of 10. Vitals: BP 105/50 Pulse 60 Temp 36.4 ?C (97.6 ?F) (Oral) Resp 18 Ht 167.6 cm (5' 6 ) Wt 118.3 kg (260 lb 12.8 oz) SpO2 91% BMI 42.09 kg/m? BMI: Estimated body mass index is 42.09 kg/m? as calculated from the following: Height as of this encounter: 167.6 cm (5' 6 ). Weight as of this encounter: 118.3 kg (260 lb 12.8 oz). I/O: Intake/Output Summary (Last 24 hours) at 02/21/2022 0736 Last data filed at 02/20/2022 1600 Gross per 24 hour Intake 2250 ml Output 400 ml Net 1850 ml Problem List: ACTIVE PROBLEM LIST Cervical spondylosis without myelopathy Cervicalgia Brachial Neuritis Or Radiculitis NOS Sprain of Ankle, Unspecified Site Localized Osteoarthrosis Not Specified Whether Primary Or Secondary, Ankle and Foot Impingement Syndrome, Shoulder Primary Localized Osteoarthrosis, Shoulder Region Obesity Malignant Neoplasm of Upper-Outer Quadrant of Left Female Breast (Hcc) Obesity, Class III, BMI >= 40 Sleep Apnea Dysrhythmias Htn (Hypertension) Cad (Coronary Artery Disease) Gastroesophageal Reflux Disease Ddd (Degenerative Disc Disease), Lumbar Unilateral Primary Osteoarthritis, Right Hip Physical Exam: Right Lower Extremity: Dorsalis pedis and Posterior tibial pulses palpable, DF/EHL/PF 5/5, SILT L4-S1 Dressing clean, dry and intact Thigh and leg soft/non-tender Labs: CBC, Coags, BMP, Mg, Phos Recent Labs 02/21/22 0548 WBC 12.34* HB 11.6 HCT 35.6* PLT 192 NA 139 K 4.5 CHLOR 107 CO2 24 BUN 18 CREAT 0.88 GLUC 128* CA 8.4* Problem Review and Assessment: Skin and Abdominal Wall: Patient monitored, no new events overnight Cardiovascular and Vascular: Patient monitored, no new events overnight Respiratory: Patient monitored, no new events overnight Endocrine and Metabolic: Patient monitored, no new events overnight Gastrointestinal: Patient monitored, no new events overnight Genitourinary and Nephrology: Patient monitored, no new events overnight Behavioral, Cerebrovascular and Nervous: Patient monitored, no new events overnight Infectious: Patient monitored, no new events overnight Impression/Plan: S/P Procedure(s) (LRB): RIGHT TOTAL HIP REPLACEMENT- ANTERIOR SUPINE INCISION (Right) on 02/20/2022 - Physical Therapy Evaluation - DVT prophylaxis: with aspirin, additional anticoagulant is contraindicated due to bleeding risk and Intermittent pneumatic compression device (IPCD) - Pain control - Antibiotics: Discontinuing Antibiotics after 24 hours -Patient will continue with home therapy upon discharge today - Patient will follow-up in the office in approximately 10 to 12 days for suture removal. - Managed to stay until follow-up - Anticipated D/C: Today - Case management for discharge planning SIGNATURE: Rolf Shelley PA-C PATIENT NAME: Dulce Peñaloza DATE: February 21, 2022 TIME: 7:36 AM PAGER/CONTACT #: ETX#[phone] [facility] 02-20-2022 Note HNO ID: [id number] Author: Sandra Reed APRN.WOOD BOATBUILDER APPRENTICE Service: Anesthesiology Author Type: Nurse Hem Inspector Type: Anesthesia Procedure Notes Filed: 02/20/2022 12:49 PM Note Text: ANESTHESIOLOGY PROCEDURE NOTE Airway General Information Procedure Start Time/Medication Administration: 02/20/2022 12:03 PM Patient location during procedure: OR Timeout Performed Pre-procedure: timeout performed Consent Obtained: Yes 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 and patient sedated or unresponsive Staffing Anesthesiologist: Clayton Alexander MD WOOD BOATBUILDER APPRENTICE: Sandra Reed APRN.WOOD BOATBUILDER APPRENTICE Performed by: WOOD BOATBUILDER APPRENTICE Indications and Patient Condition Indications for airway management: anesthesia Preoxygenated: yes anesthesia circuit Method: asleep Cricoid Pressure: No Manual In-Line Stabilization: Yes Difficult Mask: No Final Airway Details Final airway type: endotracheal airway Final Endotracheal Airway: ETT Cuffed: yes Successful intubation technique: direct laryngoscopy Devices used: intubating stylet Endotracheal tube insertion site: oral Blade: Lorrie Blade size: #3 ETT size (mm): 7.0 Measured from: lips Placement verified by: chest auscultation and capnometry Cormack-Lehane Classification: grade I - full view of glottis Number of attempts at approach: 1 Failed airway: no Unrecognized esophageal intubation: no Airway not difficult Medications Administered lidocaine topical gel 2% urojet (XYLOCAINE, GLYDO) - MUCOUS MEMBRANE 6 mL - 02/20/2022 12:03:00 PM SIGNATURE: Sandra Reed APRN.WOOD BOATBUILDER APPRENTICE PATIENT NAME: Dulce Peñaloza DATE: February 20, 2022 TIME: 12:48 PM CSN: [id number] [facility] 02-20-2022 Miscellaneous Notes Faxed per request Please fax updated office note. Jeanette Boogie APRN.DIETETIC TECHNICIAN Patient was seen by Jeanette Boogie on 02/13/2022 and had a heart cath done on 02/17/2022. Per Jeanette's note from 02/13, she wanted to see results of heart cath before giving clearance for hip replacement surgery. Surgery is scheduled for tomorrow 02/20/2022 and Alannah from [facility] is calling in again asking for clearance. Please advise Alannah from [facility] called into the Cardiology Dept regarding patient cardiac clearance. Patient is scheduled for surgery this week. Alannah can be reached at [phone] and fax number is [phone]. Thank you. Gisselle Merritt documented in this encounter [facility] 02-19-2022 Note HNO ID: [id number] Author: Lorrie Raman RN Service: Nursing Author Type: Registered Nurse Type: Progress Notes Filed: 02/19/2022 4:45 PM Note Text: PRE-PROCEDURE INSTRUCTIONS TO PREPARE FOR YOUR PROCEDURE: Your arrival time for your procedure is 0845. Do NOT eat any solid foods after MIDNIGHT the night prior to your procedure - this includes gum or mints. You can drink clear liquids* up until 0645, which is 2 hours before your arrival time. *Clear liquids = water, carbohydrate drink (sports drink that is clear or yellow in color), Ensure Pre-Surgery (given by JEREMY or your ), fruit juice without pulp (apple/cranberry), clear tea, black coffee (no cream). NO ALCOHOL. Shower the morning of the procedure, put on clean clothes, and have clean sheets for your bed to help prevent infection after your procedure. Leave all valuables such as jewelry including rings, piercings, wallets, and purses at home. Wear comfortable, loose-fitting clothing. If you wear glasses or contacts, please bring a case. SPECIAL INSTRUCTIONS: If instructed, bring your first voided urine specimen with you. If you were provided skin preparation to use prior to your procedure, complete this as directed. If you were provided Ensure Pre-Surgery drink, you need to drink this at 0645. This should be consumed quickly (in less than 5 minutes, rather than sipped over time) If you use crutches or a walker, bring them with you. If you have a home CPAP/BIPAP machine, bring it with you. If you were instructed to complete a fleets enema or bowel prep, complete as directed. Bring copy of Living Will/Power of Sizer Hand. Do not smoke or chew. If you use tobacco, quit or at least cut down before surgery. Do not smoke or chew after midnight the day before your surgery. This effects bleeding, infection, healing, and so much more. Do not take any Diet or Herbal Supplements 2 weeks prior to your surgery date. Please notify your physician if there is any change in your physical condition such as a cold, cough, fever, sore throat, or skin irritation near the surgical site. Visitors under the age of 14 are restricted in the Surgery Center. UPON ARRIVAL: Access to [facility] is located on [address] [place] parking is available for your convenience from 5am-5pm- there is a $5.00 charge for this service. Take the elevators directly inside the entrance to the 1st Floor Surgery Lobby. Sign in at the podium located to the left when you get off the elevators. A payment may be expected at the time of service. One visitor may come back to the preoperative area with you. The preoperative staff will be reviewing your medical history, please let them know if you prefer not to have a visitor with you during this time. Once you are ready for surgery, two visitors at a time are permitted in your preoperative room. Day of Surgery Medication Instructions: No current facility-administered medications for this encounter. Current Outpatient Medications Medication Sig Dispense Refill atorvastatin (LIPITOR) 20 mg tablet Take 1 tablet by mouth once daily. 30 tablet 3 aspirin, enteric coated (ASPIRIN, ENTERIC COATED) 81 mg EC tablet Take 1 tablet by mouth once daily. 30 tablet 3 ibuprofen (MOTRIN) 600 mg tablet Take 600 mg by mouth every 6 hours as needed. LAST DOSE 15 DAYS PRE OP PER DR PHAM (Patient not taking: Reported on 02/12/2022) omeprazole (PRILOSEC) 40 mg capsule Take 40 mg by mouth once daily. AM triamterene-hydroCHLOROthiazide (DYAZIDE) 37.5-25 mg per capsule Take 0.5 capsules by mouth once daily. 1/2 TABLET EVERY OTHER DAY Ascorbic Acid 500 mg cpER Take 500 mg by mouth twice daily. Last dose 02/06 (Patient not taking: Reported on 02/12/2022) cholecalciferol (VITAMIN D3) 5,000 unit tab Take 4,000 Units by mouth once daily. AM Last dose 02/06 (Patient not taking: Reported on 02/12/2022) Zinc 50 mg tab Take 50 mg by mouth once daily. AM Last dose 02/06 (Patient not taking: Reported on 02/12/2022) acetaminophen (TYLENOL) 325 mg tablet Take 650 mg by mouth every 6 hours as needed. aliskiren (TEKTURNA) 150 mg tablet Take 150 mg by mouth twice daily. PER PRIMARY AM AND AT 1700 metoprolol succinate XL, long acting, 25 mg 24 hr tablet Take 25 mg by mouth twice daily. 25 MG AM 50MG BED TIME PER PRIMARY Take all routine morning medications except for vitamins, triamterene-hydrochlorothiazide on the morning of surgery. You may continue tylenol- just do not take the morning of surgery. Stop Ibuprofen 2 weeks prior to surgery. [facility] 02-16-2022 Note HNO ID: [id number] Author: Cherise Harvey DO Service: Cardiovascular Disease Author Type: Physician Type: Progress Notes Filed: 02/16/2022 4:17 PM Note Text: CARDIAC CATHETERIZATION RISK ASSESSMENT SERVICE DATE: February 16, 2022 SERVICE TIME: 4:16 PM Level 1 Cardiac Catheterization Lab Exclusion Check List Is the patient less than 22 years old? No Is there pulmonary edema due to ischemia? No Is there valvular or LV function limitations with severe (Class 4) symptoms? No Is there complex congenital heart disease? No Is there an acute coronary syndrome? No Is this a therapeutic procedure in adult congenital heart disease patient? No SIGNATURE: Cherise Harvey DO PATIENT NAME: Dulce Peñaloza DATE: February 16, 2022 TIME: 4:16 PM PAGER/CONTACT #: [facility] 02-13-2022 Miscellaneous Notes Patient called to ask about whether or not she should hold the 81mg ASA for hip surgery. Education provided to patient. We do not typically hold ASA for procedures as the benefits far outweigh the minimal risk, but will review once heart cath results are available. documented in this encounter [facility] 02-12-2022 Instructions Jeanette Boogie APRN.[facility] - 02/12/2022 10:44 AM EDT Stress test shows a possible area of decreased blood flow to the heart muscle - however, I am not 100% certain. I think that we should proceed with heart cath as you are having some symptoms of chest pain. Start baby aspirin 81 mg daily Start low dose statin to get LDL better controlled - atorvastatin 20 mg daily. Plan for this on Thursday with Dr. Harvey - once this is complete we can provide clearance for your surgery. [phone] is the nurse line if Mayra has any any questions. documented in this encounter [facility] 02-12-2022 History of Present illness Narrative Images from the original note were not included. [facility] [place] SECTION OF REGIONAL CARDIOLOGY OUTPATIENT VISIT DATE February 12, 2022 OUTPATIENT VISIT TYPE ESTABLISHED PRIMARY CARE PHYSICIAN: [place] [address] CHIEF COMPLAINT: Preoperative CV risk assessment and follow up from recent testing HISTORY OF PRESENT ILLNESS: Ms. Peñaloza is a 71 year old female with a past medical history of sleep apnea (not compliant with CPAP), hypertension, GERD, breast cancer and obesity who presents today for follow-up. She was last seen by Dr. Bell in January 08, 2022 and was ordered a stress test for upcoming right total hip replacement surgery. She is here to discuss the results of her testing. She has no prior history of cardiovascular disease but there is a possible family history of early CAD. She reports compliance with home blood pressure medication. Upon questioning, she does endorse some midsternal chest pain with / without exertion - reported as chronic He admits to ignoring some symptoms on occasion. Last time it happened was today No nausea Radiation to shoulder blades She denies shortness of breath but does admit to some fatigue REVIEW OF SYSTEMS: CARD: See HPI GENERAL: Negative for: Weight loss or gain, Fever and/or Chills, + fatigut HEENT: Negative for: Headache, Impaired Vision, Glasses, Hearing Impairment, Ringing in Ears, Nosebleeds, Bleeding Gums NECK: Negative for: Swelling, Pain, Stiffness RESPIRATORY: Negative for: Cough, Blood in Sputum, Shortness of breath, Wheezing, Apnea GASTROINTESTINAL: Negative for: Nausea, Vomiting, Diarrhea, Blood in stool, or Dark black stools MUSCULOSKELETAL: + joint pain NEUROLOGIC: Negative for: focal numbness/weakness, headaches, visual changes, ataxia, speech/language loss SKIN: Negative for: Rashes, Itching HEMATOLOGICAL/LYMPHATIC: Negative for: Easy bruising , Easy bleeding ENDOCRINE: Negative for: Heat or cold intolerance, Excessive sweating, Frequent urination, Frequent thirst PLAN AND RECOMMENDATIONS: Some documentation from previous visit of 01/08/2022 was copied and pasted, documentation has been reviewed and edited as necessary for today's visit. 1.Preoperative Clearance - patient scheduled for RTH replacement on Thursday02/14/2022 -She underwent myocardial perfusion imaging that showed mild LAD ischemia less than 10% with an ejection fraction of 75%. -Due to reported symptoms of chest pain with and without exertion I have recommended her for diagnostic left heart cath to evaluate for possible coronary artery disease. She was agreeable to this plan. -We will plan for this to happen here at [facility] as soon as possible. She and her were agreeable to this plan. -She has updated labs noted in epic -We would not be able to provide clearance for her until results of catheterization are reviewed. 2.Palpitations - Recently echocardiogram unremarkable - 14-day monitor with episodes of brief pSVT without symptoms - Prior symptoms on monitor c/w NSR. 3.Hypertension - Good control on Tekturna and Metoprolol 4. Abnormal Stress test -Recent stress test shows possible ischemia in LAD territory, mild. -New finding -Plan for left heart cath early next week as patient with reported chest pain with exertion. -We will start patient on baby aspirin 81 mg daily and low-dose atorvastatin due to elevated LDL and possible coronary disease. -Was agreeable with this plan and prescriptions have been sent to the local pharmacy. I spent a total of 45 minutes on the date of the service which included preparing to see the patient, [id number] patient care, completing clinical documentation, performing a medically appropriate examination, counseling and educating the patient/family/caregiver, ordering medications, tests, or procedures, communicating with other HCPs (not separately reported), and communicating results to the patient/family/caregiver. CONTACT INFORMATION: Jeanette Boogie APRN.[facility] Cardiology Nurse Practitioner Section of Regional Cardiology [facility] Dept of Cardiovascular Medicine [facility] [place] [address] [place] [address] Office Office PHYSICAL EXAMINATION: BP 116/60 Pulse 66 Ht 167.6 cm (5' 6 ) Wt 116 kg (255 lb 12.8 oz) SpO2 97% BMI 41.29 kg/m HEENT: normocephalic, EOMI Heart: regular rhythm , no murmur, rub or gallop Lungs: clear to auscultation , decreased breath sounds Abdomen: bowel sounds present , nontender, nondistended Extremities: pitting edema present 1+, peripheral pulses intact Musculoskeletal: no cyanosis or clubbing, uses cane for ambulation Neurological: alert and oriented , no focal motor deficits appreciated Psychiatric: appropriate and cooperative Skin: no rash, cellulitis or lesions appreciated CARDIOVASCULAR MEDICINE TESTING: I have personally reviewed echocardiogram report, stress test report, and holter report Last ECHO Result Conclusion ECHO Collected: 10/17/2021 9:40 AM (Final result) Impression: CONCLUSIONS: - Exam indication: Palpitations - The left ventricle is small. Left ventricular systolic function is normal. EF = 60 5% (2D biplane) Grade I left ventricular diastolic dysfunction. - The right ventricle is normal in size. Right ventricular systolic function is normal. - There are no significant valvular abnormalities. - The patient has not had a prior CC echocardiographic exam for comparison. * * * Final * * * Last EKG Result Conclusion ECG COMPLETE Collected: 09/16/2021 1:08 PM (Preliminary result) Impression: SINUS RHYTHM WITH PREMATURE ATRIAL COMPLEXES OTHERWISE NORMAL ECG PAST CARDIAC HISTORY: HTN Palpitations Family history of CAD PAST MEDICAL HISTORY Diagnosis Date Allergy 12/2021, PT STATES HAS SO MANY ALLERGIES THAT AFFECT HER HEART AND HEART RATE, SHE WENT TO SEE A HOSPITAL ACCOUNT MANAGER FOR THE FIRST TIME 12/2021 DR BELL, TO BE WORKED UP. Arthritis JUDI HIP/KNEES, SPINE CHRONIC PAIN Breast cancer (HCC) LEFT SIDE BREAST CA/LUMPECTOMY AND RADIATION 2009 DDD (degenerative disc disease), lumbar GERD (gastroesophageal reflux disease) PER PRIMARY Unspecified essential hypertension Essential hypertension Unspecified sleep apnea Sleep apnea, NON COMPLIANT WITH CPAP, LAST STUDY >12 YEARS AGO, PER PRIMARY MD PAST SURGICAL HISTORY Procedure Laterality Date BREAST LUMPECTOMY HX Left 04/2010 RADIATION LAMINECTOMY,LUMBAR X4 LAP ZELALEM W EXPLORATION OF CD NECK SPINE DISK SURGERY DISCECTOMY ADDL FUSION LUMBAR PAST SURGICAL HISTORY OF Left LEFT KNEE SCOPE PAST SURGICAL HISTORY OF Right RIGHT FOOT AND ANKLE SURGICAL ALIGNMENT PAST SURGICAL HISTORY OF Right BUNIONECTOMY RIGHT PAST SURGICAL HISTORY OF TRIGGER FINGER X2 REVISE MEDIAN N/CARPAL TUNNEL SURG Bilateral TOTAL ABDOMINAL HYSTERECT W/WO RMVL TUBE OVARY 1989' Social History Tobacco Use Smoking status: Never Smokeless tobacco: Never Substance Use Topics Alcohol use: Never Drug use: Never FAMILY HISTORY Problem Relation Age of Onset Heart Mother other (diabetes) Mother other (htn) Mother Heart Father Alzheimer's Disease Father other (mesotheliloma) Father other (thyroid cancer) Sister ALLERGIES Allergen Reactions Kapidex [Dexlansopr* Hives Losartan Potassium Intolerance irregular heart beat, Percodan [Oxycodone* Mental Status Change Phenergan [Prometha* Mental Status Change Acetaminophen-Codei* Other: See Comments Violent headache, bizarre nightmares Actifed [Triprolidi* Other: See Comments Erratic heartbeat Adhesive Tape (Ketty* Intolerance RASH Anastrozole Other: See Comments Nausea, flushing, body aches and pains, headache, sweating Aromasin [Exemestan* Other: See Comments Severe jaw pain Atenolol Other: See Comments Rapid heart rate Bromfed [Bromphenir* Other: See Comments Irregular heratbeat Caffeine Intolerance RAPID HEART RATE Chymotrypsin Other: See Comments Active ingredient in orenzyme Erratic heart beat Clonidine Other: See Comments Heart rate dropped 50 points Codeine Other: See Comments Immediate blinding headache Contrast Dye Rash radioactive dye from heart test in 1995 Detrol [Tolterodine* Other: See Comments Severe headache, nausea, loss of vision Dimetapp [Brompheni* Other: See Comments Erratic heartbeat Elavil [Amitriptyli* Other: See Comments Headache, nightmares Estrace [Estradiol] Hives, Swelling, Itching ESTRACE, ESTRADIOL, CLIMARA, PRIMERA pacth Stomach cramps, headache, nausea, eyes swollen shut Estratab [Esterifie* Other: See Comments Sores on face, head, chest Femara [Letrozole] Other: See Comments Headache, severe hot flashes, joint and bone pain, muscle pain, unusual sweating Fexofenadine Other: See Comments Severe back pain Latex Other: See Comments LIPS SWELL WITH CONTACT WITH A BALLOON Loestrin 24 Fe [Nor* Other: See Comments Red painful sores on face Morphine no reaction to morphine solution/liquid, +itching with oral morphine Penicillins Hives Prednisone Other: See Comments Severe stomach cramps and pain Sweeta Concentrate * Intolerance artificial sweetners RAPID HEART RATE Tamoxifen Other: See Comments Pain, blurred vision, reduced eyesight, hair loss, malaise, leg cramps, hot flashes, nausea Trilafon [Perphenaz* Other: See Comments Erratic heart rate Vibramycin [Doxycyc* Other: See Comments Extreme euphoria Hydroxyzine Contraindication-Medical Surgical irregular heartbeat, dizzy CURRENT MEDICATIONS: ibuprofen (MOTRIN) 600 mg tablet Take 600 mg by mouth every 6 hours as needed. LAST DOSE 15 DAYS PRE OP PER DR PHAM omeprazole (PRILOSEC) 40 mg capsule Take 40 mg by mouth once daily. AM triamterene-hydroCHLOROthiazide (DYAZIDE) 37.5-25 mg per capsule Take 0.5 capsules by mouth once daily. 1/2 TABLET EVERY OTHER DAY Ascorbic Acid 500 mg cpER Take 500 mg by mouth twice daily. Last dose 02/06 cholecalciferol (VITAMIN D3) 5,000 unit tab Take 4,000 Units by mouth once daily. AM Last dose 02/06 Zinc 50 mg tab Take 50 mg by mouth once daily. AM Last dose 02/06 acetaminophen (TYLENOL) 325 mg tablet Take 650 mg by mouth every 6 hours as needed. aliskiren (TEKTURNA) 150 mg tablet Take 150 mg by mouth twice daily. PER PRIMARY AM AND AT 1700 metoprolol succinate XL, long acting, 25 mg 24 hr tablet Take 25 mg by mouth twice daily. 25 MG AM 50MG BED TIME PER PRIMARY documented in this encounter [facility] 02-05-2022 Miscellaneous Notes Patient called in to ask about echo results. Returned call, left VM. documented in this encounter [facility] 01-28-2022 Note HNO ID: [id number] Author: Scarlett Victoria YOKO Service: Nuclear Medicine Author Type: Technologist Type: Progress Notes Filed: 01/28/2022 10:49 AM Note Text: RADIOLOGY SERVICE PROGRESS NOTE SERVICE DATE: 01/28/2022 SERVICE TIME: 10:48 AM PATIENT IDENTITY VERIFICATION COMPLETED USING TWO (2) STANDARD IDENTIFIERS: Name and Date of confirmed by patient verbally and Name and Date of confirmed by identification band FALL SCREENING: Has the patient had 2 falls in the last year or 1 fall with injury or currently using an Ambulatory Assistive Device (Walker, Cane, Wheelchair, Crutches, etc.)? Yes, Patient High Risk for Falls What interventions were put in place to prevent falls during this visit? Instructed Patient to Call for Help if Needed and Instructed Patient to Remain Seated (Not on Exam Table) Until Exam PATIENT GENDER DATA: .female : No ALLERGIES: Reviewed and unchanged MEDICATIONS REVIEWED: Not applicable PATIENT RELEVANT IMPLANT DATA REVIEWED: Not Applicable CREATININE: Creatinine Date Value Ref Range Status 01/22/2022 0.87 0.51 - 0.95 mg/dL Final Comment: Patients receiving either N-Acetylcysteine (NAC) or Metamizole prior to venipuncture, may have falsely depressed results. 05/03/2013 0.78 0.70 - 1.40 mg/dL Final 05/30/2008 0.75 0.70 - 1.40 mg/dL Final Estimated Glomerular Filtration Rate Date Value Ref Range Status 01/22/2022 71 >=60 mL/min/1.73m? Final Comment: Estimated Glomerular Filtration Rate (eGFR) is calculated using the 2020 CKD-EPI creatinine equation. This equation utilizes serum creatinine, sex, and age as parameters. The creatinine assay has traceable calibration to isotope dilution-mass spectrometry. Refer to KDIGO guidelines for clinical interpretation. In patients with unstable renal function, e.g. those with acute kidney injury, the eGFR may not accurately reflect actual GFR. eGFR- Date Value Ref Range Status 05/03/2013 >60 Final P.O.C.T. RESULTS: N/A January 28, [address] PERFORMED: No IV SITE: Ambulatory: A peripheral IV was started in the Right antecubital site with a Angio cath: 22 gauge. POST EXAM PIV STATUS: Discontinued PROCEDURE TYPE: NM Stress: 14.9 mCi [id number] was administered IV for Rest Imaging at 08:55 by . 48.7 mCi [id number] was administered IV for Stress Imaging at 10:03 by . PATIENT DISCHARGED TO: Ambulatory patient, left MI department area. A Diagnostic radioactive procedure has taken place, with no further precautions necessary other than routine body substance precautions. More information regarding radiation safety can be found using this link: [email or web address] SIGNATURE: YOKO Lopez PATIENT NAME: Dulce Peñaloza DATE: January 28, 2022 TIME: 10:48 AM PAGER/CONTACT #: [facility] 01-22-2022 Note HNO ID: [id number] Author: Inga Lopez APRN.DIETETIC TECHNICIAN Service: ? Author Type: Nurse Practitioner Type: Progress Notes Filed: 01/22/2022 1:43 PM Note Text: Summary: dos meds Day of Surgery Medication Instructions: Current Outpatient Medications Medication Sig Dispense Refill ibuprofen (MOTRIN) 600 mg tablet Take 600 mg by mouth every 6 hours as needed. LAST DOSE 15 DAYS PRE OP PER DR PHAM omeprazole (PRILOSEC) 40 mg capsule Take 40 mg by mouth once daily. AM triamterene-hydroCHLOROthiazide (DYAZIDE) 37.5-25 mg per capsule Take 0.5 capsules by mouth once daily. 1/2 TABLET EVERY OTHER DAY Ascorbic Acid 500 mg cpER Take 500 mg by mouth twice daily. Last dose 02/06 cholecalciferol (VITAMIN D3) 5,000 unit tab Take 4,000 Units by mouth once daily. AM Last dose 02/06 Zinc 50 mg tab Take 50 mg by mouth once daily. AM Last dose 02/06 acetaminophen (TYLENOL) 325 mg tablet Take 650 mg by mouth every 6 hours as needed. aliskiren (TEKTURNA) 150 mg tablet Take 150 mg by mouth twice daily. PER PRIMARY AM AND AT 1700 metoprolol succinate XL, long acting, 25 mg 24 hr tablet Take 25 mg by mouth twice daily. 25 MG AM 50MG BED TIME PER PRIMARY No current facility-administered medications for this visit. Take all routine morning medications except for vitamins, triamterene-hydrochlorothiazide on the morning of surgery. You may continue tylenol- just do not take the morning of surgery. Stop Ibuprofen 2 weeks prior to surgery. [facility] 01-22-2022 Note HNO ID: [id number] Author: Inga Lopez APRN.DIETETIC TECHNICIAN Service: ? Author Type: Nurse Practitioner Type: Progress Notes Filed: 02/12/2022 1:20 PM Note Text: Summary: [facility] Anesthesia Consult Gael Pham - 02/20/22 Chart Review (Vibha): 71 yo [place] woman, follows with cardiology [facility] ( DR BELL for palpitations. HTN, SHANNAN (non-compliant PAP Rx). Extensive allergy list. Prior Breast Cancer (left lumpectomy). Echo 10/13: LVEF 60 +/- 5%, Grade I DD noted. 1 week Holter: 47 - 179 bpm, average 69 bpm, predominant NSR. SVT no more than 20 beats, longest 13.7 sec, rare couplets or triplets. Rare PVC's/bigeminy and trigeminy noted. Charlotte to be well controlled on Tekturna and Metoprolol (OV note from August 2021) 01/22/22 JENN Lopez: I had the pleasure of meeting Patti today in [facility]. Lives with her . Underwent a 6hr spine procedure 10/2020 complicated by an incidental durotomy R L4-5 at [facility] in [place], [place]. The months of PT she required exacerbated an already painful R hip. For the last 6mos, she's been mostly sedentary. Only being able to stand for short periods of time. Can only walk short distances. She was able to ambulate to [facility] with a cane and assistance from her . She does drive occasionally, but frequently is unable to get out of the car after arriving 2/2 pain. She denies CP/dyspnea/orthopnea. Sleeps with 1 large pillow. BP R 125/74, L 126/72, HR 66, RR 18, 96% RA. There is a clearance form in scanned documents from Cardiology stating that he would like to stress her for risk stratification- looks like it may be scheduled for 01/28/22. I do not think she is aware of this appt. EKG 08/2021 79bpm, SR with PACs. 01/23/22 JENN Lopez labs: neg SA/MRSA, A1C 5.7, O+, Cre 0.87, NML coags, HANDH 14.9/44.6, plt 204 SPECT 01/28- Abnormal study EF 75, mild (<10%) ischemia in the territory of the LAD, intermediate risk scan. We have not received the clearance from cardiology as of yet to review. 02/12/22 JENN Lopez: PCP provided med clearance. [facility] 01-22-2022 History of Present illness Narrative Summary: dos meds Day of Surgery Medication Instructions: Current Outpatient Medications Medication Sig Dispense Refill ibuprofen (MOTRIN) 600 mg tablet Take 600 mg by mouth every 6 hours as needed. LAST DOSE 15 DAYS PRE OP PER DR PHAM omeprazole (PRILOSEC) 40 mg capsule Take 40 mg by mouth once daily. AM triamterene-hydroCHLOROthiazide (DYAZIDE) 37.5-25 mg per capsule Take 0.5 capsules by mouth once daily. 1/2 TABLET EVERY OTHER DAY Ascorbic Acid 500 mg cpER Take 500 mg by mouth twice daily. Last dose 02/06 cholecalciferol (VITAMIN D3) 5,000 unit tab Take 4,000 Units by mouth once daily. AM Last dose 02/06 Zinc 50 mg tab Take 50 mg by mouth once daily. AM Last dose 02/06 acetaminophen (TYLENOL) 325 mg tablet Take 650 mg by mouth every 6 hours as needed. aliskiren (TEKTURNA) 150 mg tablet Take 150 mg by mouth twice daily. PER PRIMARY AM AND AT 1700 metoprolol succinate XL, long acting, 25 mg 24 hr tablet Take 25 mg by mouth twice daily. 25 MG AM 50MG BED TIME PER PRIMARY No current facility-administered medications for this visit. Take all routine morning medications except for vitamins, triamterene-hydrochlorothiazide on the morning of surgery. You may continue tylenol- just do not take the morning of surgery. Stop Ibuprofen 2 weeks prior to surgery. Summary: [facility] Anesthesia Consult Gael Pham - 02/20/22 Chart Review (Vibha): 71 yo [place] woman, follows with cardiology [facility] ( DR BELL for palpitations. HTN, SHANNAN (non-compliant PAP Rx). Extensive allergy list. Prior Breast Cancer (left lumpectomy). Echo 10/13: LVEF 60 +/- 5%, Grade I DD noted. 1 week Holter: 47 - 179 bpm, average 69 bpm, predominant NSR. SVT no more than 20 beats, longest 13.7 sec, rare couplets or triplets. Rare PVC's/bigeminy and trigeminy noted. Charlotte to be well controlled on Tekturna and Metoprolol (OV note from August 2021) 01/22/22 JENN Lopez: I had the pleasure of meeting Patti today in [facility]. Lives with her . Underwent a 6hr spine procedure 10/2020 complicated by an incidental durotomy R L4-5 at [facility] in [place], [place]. The months of PT she required exacerbated an already painful R hip. For the last 6mos, she's been mostly sedentary. Only being able to stand for short periods of time. Can only walk short distances. She was able to ambulate to [facility]OB with a cane and assistance from her . She does drive occasionally, but frequently is unable to get out of the car after arriving 2/2 pain. She denies CP/dyspnea/orthopnea. Sleeps with 1 large pillow. BP R 125/74, L 126/72, HR 66, RR 18, 96% RA. There is a clearance form in scanned documents from Cardiology stating that he would like to stress her for risk stratification- looks like it may be scheduled for 01/28/22. I do not think she is aware of this appt. EKG 08/2021 79bpm, SR with PACs. documented in this encounter [facility] 01-01-2022 Miscellaneous Notes Received form from [place] Placed on Dr Conroy desk for review documented in this encounter [facility] 11-07-2021 History of Present illness Narrative Dulce Peñaloza 1950 Post Op Follow Up Note Assessment/Plan: Problem List Items Addressed This Visit Other Lumbar spinal stenosis L2-3, L3-4, with L4-5 foraminal stenosis - Primary S/P lumbar fusion Return for a fresh look in the future as requested. Clinical Findings: Subjective Dulce Peñaloza presents to the clinic following surgery:10/25/2020. 1. Bilateral trans-foraminal interbody fusion at L4-5. 2. Pedicle screw and chase stabilization, L4-5 using Solera from [employer] (5.5 rods, 6.5 screws) 3. Placement of interbody device at L 4-5 (Capstone from [employer]) 4. Decompression laminectomy with medial facetectomy L2-3 and L3-4, and revision decompression and bilateral foraminotomies at L4-[address] based navigation for screw placement. 6. Local bone graft from products of laminectomy 7. Repair of incidental durotomy right L4-5 Assessment - 11/07/21 [facility] Pain Assessment Pain Assessment 0-10 0-10 DVPRS 1/10 Pain Location Back Pain Orientation Lower Pain Descriptors Aching Pain Frequency Intermittent Pain Onset Gradual Result of Injury No Work-Related Injury No She has had a slow recovery process although is happy with her results. She has slightly bothersome back pain but this is trending toward improvement. She does report some left buttock and posterior lateral numbness/nerve pain in the thigh and lower leg since surgery that continues but is intermittent. This seemed to respond well to low-dose gabapentin however she seemed to have some cardiac side effects and is pending cardiology evaluation in May. She notes improvement in her preoperative right lower extremity symptoms and her overall posture is better. She denies new lower extremity weakness. She does have right hip pain and left knee pain that are separate issues. She is pending evaluation of her right hip with an clinical product specialist next week. She is now using a cane for ambulation. She has not had any wound complications. She has a current medication list which includes the following prescription(s): aliskiren, cholecalciferol (vitamin d3), diclofenac sodium, gabapentin, loratadine, metoprolol succinate, NONFORMULARY, NONFORMULARY, omeprazole, toprol xl, triamterene-hydrochlorothiazide, and zinc. Objective BP (!) 155/88 Pulse 66 Ht 5' 6 Wt 120.7 kg (266 lb) SpO2 94% BMI 42.93 kg/m General alert, appears stated age, cooperative, no distress and moderately obese. Spine Local Exam of spine shows no palpable tenderness or local deformity and comfortable spontaneous ROM through the exam Wound well-healed midline lumbar incision Motor Exam Lower extremity motor is strong and symmetric in all groups. Numbness about left lateral thigh greater than calf to light touch. Painful range of motion about the right hip. Gait/Balance improved ambulation, ongoing mild difficulty with ambulation. Using a cane for ambulation. Imaging: X-rays of the lumbar spine 11/07/2021 Independent review of the images shows she is status post L4-5 fusion with interbody device and pedicle fixation. Hardware appears to be satisfactorily aligned without evidence of loosening or fracture. I believe I see more bone incorporation within the disc space, likely solid at this point. The report is pending Sivakumar Whatley CNP documented in this encounter [facility] 09-10-2021 History of Present illness Narrative Radiology Service Progress Note PATIENT NAME: Dulce Peñaloza DATE OF SERVICE: September 10, 2021 TIME: 1:36 PM PATIENT IDENTITY VERIFICATION COMPLETED USING TWO (2) IDENTIFIERS: Name and Date of confirmed by patient verbally. FALL SCREENING: Has the patient had 2 falls in the last year or 1 fall with injury or currently using an Ambulatory Assistive Device (Walker, Cane, Wheelchair, Crutches, etc.)? Yes, Patient High Risk for Falls Patient uses a cane What interventions were put in place to prevent falls during this visit? Increased Observations by Caregivers PATIENT GENDER DATA: Female. status: : No status: NO. PATIENT RELEVANT IMPLANT DATA REVIEWED: Not Applicable RADIOLOGY DEPARTMENT: Mammography PERIPHERAL IV DATA: Not applicable SIGNED BY: Dallin CarreroMarketMuse Ruthy September 10, 2021 1:36 PM documented in this encounter [facility] 05-09-2021 History of Present illness Narrative Dulce Peñaloza 1950 Post Op Follow Up Note Assessment/Plan: Problem List Items Addressed This Visit Other Spinal stenosis of lumbar region with neurogenic claudication Relevant Orders XR Lumbar Spine 2-3 Views (Standard) S/P lumbar fusion - Primary Relevant Orders XR Lumbar Spine 2-3 Views (Standard) Return in about 6 months (around 11/07/2021). I recommend she continue to walk and ambulate for exercise and therapy. We will plan to follow-up with x-rays in 6 months. Clinical Findings: Subjective Dulce Peñaloza presents to the clinic following surgery:10/25/2020. 1. Bilateral trans-foraminal interbody fusion at L4 5. 2. Pedicle screw and chase stabilization, L4-5 using Solera from [employer] (5.5 rods, 6.5 screws) 3. Placement of interbody device at L 4 5 (Capstone from [employer]) 4. Decompression laminectomy with medial facetectomy L2-3 and L3-4, and revision decompression and bilateral foraminotomies at L4-[address] based navigation for screw placement. 6. Local bone graft from products of laminectomy 7. Repair of incidental durotomy right L4-5 Assessment - 05/09/21 1351 Pain Assessment 0-10 DVPRS 4/10 Pain Location Back She has had a slow recovery process although is happy with her results. She has slightly bothersome back pain but this is trending toward improvement. She does report some left buttock and posterior lateral numbness/nerve pain in the thigh and lower leg since surgery that continues. This seemed to respond well to low-dose gabapentin however she seemed to have some cardiac side effects and is pending cardiology evaluation in May. She notes improvement in her preoperative right lower extremity symptoms and her overall posture is better. She denies new lower extremity weakness. She does have right hip pain and left knee pain that are separate issues. She is now using a cane for ambulation. She has not had any wound complications. She has a current medication list which includes the following prescription(s): aliskiren, cholecalciferol (vitamin d3), diclofenac sodium, gabapentin, loratadine, metoprolol succinate, NONFORMULARY, NONFORMULARY, omeprazole, toprol xl, triamterene-hydrochlorothiazide, and zinc. Objective BP (!) 157/83 Pulse 63 Ht 5' 6 Wt 120.7 kg (266 lb) SpO2 97% BMI 42.93 kg/m General alert, appears stated age, cooperative, no distress and moderately obese. Spine Local Exam of spine shows no palpable tenderness or local deformity and comfortable spontaneous ROM through the exam Wound well-healed midline lumbar incision Motor Exam Lower extremity motor is strong and symmetric in all groups. Numbness about left lateral thigh greater than calf to light touch. Painful range of motion about the right hip. Gait/Balance improved ambulation, ongoing mild difficulty with ambulation. Using a cane for ambulation. Imaging: X-rays of the lumbar spine 05/09/2021 Independent review of the images shows she is status post L4-5 fusion with interbody device and pedicle fixation. Hardware appears to be satisfactorily aligned without evidence of loosening or fracture. I believe I see more bone incorporation within the disc space compared to prior x-rays in January. No evidence of complication is seen. The report is pending Sivakumar Whatley CNP documented in this encounter [facility] 02-07-2021 History of Present illness Narrative Dulce Peñaloza 1950 Post Op Follow Up Note Assessment/Plan: Problem List Items Addressed This Visit Other Lumbar spinal stenosis L2-3, L3-4, with L4-5 foraminal stenosis Relevant Medications gabapentin (Neurontin) 100 MG capsule Other Relevant Orders XR Lumbar Spine 2-3 Views (Standard) S/P lumbar fusion - Primary Relevant Medications gabapentin (Neurontin) 100 MG capsule Other Relevant Orders XR Lumbar Spine 2-3 Views (Standard) Return in about 3 months (around 05/09/2021), or with x-rays. I have written a prescription for low-dose gabapentin to assist in her left lower extremity radicular nerve pain. I advised her to start this at bedtime and slowly increase to 3 times per day as she tolerates. I recommend she continue to walk and ambulate for exercise and therapy. We will plan to follow-up with x-rays in 3 months. Clinical Findings: Subjective Dulce Peñaloza presents to the clinic following surgery:10/25/2020. 1. Bilateral trans-foraminal interbody fusion at L4 5. 2. Pedicle screw and chase stabilization, L4-5 using Solera from [employer] (5.5 rods, 6.5 screws) 3. Placement of interbody device at L 4 5 (Capstone from [employer]) 4. Decompression laminectomy with medial facetectomy L2-3 and L3-4, and revision decompression and bilateral foraminotomies at L4-[address] based navigation for screw placement. 6. Local bone graft from products of laminectomy 7. Repair of incidental durotomy right L4-5 Assessment - 02/07/21 1256 Pain Assessment Pain Assessment No/denies pain She has had a slow recovery process although is happy with her results so far. Today she denies any bothersome back pain. She does report some left buttock and posterior lateral numbness/nerve pain in the thigh and lower leg since surgery that is new. This has improved some since right after surgery but is still very bothersome. She notes improvement in her preoperative right lower extremity symptoms and her overall posture is better. She denies new lower extremity weakness. She does still use a Rollator walker when ambulating long distances. She has not had any wound complications. She has a current medication list which includes the following prescription(s): aliskiren, cholecalciferol (vitamin d3), diclofenac sodium, gabapentin, loratadine, metoprolol succinate, NONFORMULARY, NONFORMULARY, omeprazole, toprol xl, triamterene-hydrochlorothiazide, and zinc. Objective BP (!) 148/90 (BP Location: Right arm, Patient Position: Sitting, BP Cuff Size: X-large Adult) Pulse 73 Ht 5' 6 Wt 120.7 kg (266 lb) BMI 42.93 kg/m General alert, appears stated age, cooperative, no distress and moderately obese. Spine Local Exam of spine shows no palpable tenderness or local deformity and comfortable spontaneous ROM through the exam Wound well-healed midline lumbar incision Motor Exam Lower extremity motor is strong and symmetric in all groups. Numbness about left lateral thigh greater than calf to light touch Gait/Balance improved ambulation, ongoing mild difficulty with ambulation. Still using a Rollator walker for long distances. Imaging: X-rays of the lumbar spine 02/07/2021 Independent review of the images shows she is status post L4-5 fusion with interbody device and pedicle fixation. Hardware appears to be satisfactorily aligned without evidence of loosening or fracture. I believe I see the beginnings of bony incorporation within the disc space. No evidence of complication is seen. The report is pending Sivakumar Whatley CNP documented in this encounter [facility] 11-01-2020 History of Present illness Narrative Report called in to nurse at [facility]. Discharge papers sent with transport. aware of discharge. Medical Transportation set up by [facility] per hospital request: Date: 11/01 Time: 1:30-2:30PM Destination: [facility] Company: [employer] [phone]) Special needs/equipment: no Truck Type: roma for [employer] called:Jagdeep Aguero Completed: No Trip on Will Call: No Nutrition Pt seen for LOS, however now noted that pre-cert has been approved with plan to go to SNF. Pt reported that appetite is decreased, reported that she is only able to eat a little at a time. Pt reports that she is normally a nibbler all day, but also describes as not hungry. Pt had no s/s of depletion. Pt doesn't drink any ONS, no diet restrictions or difficulty chewing or swallowing. Recommended Pt continue to snack b/w meals to increase PO intake. No recommended interventions at this time. Rosa Schaffer RD, LD insurance denied rehab / SNF- peer to peer can be done- by noon this day [phone] ref # [id number] - DIETETIC TECHNICIAN/ informed 1030 peer to peer completed and per C [employer]WAY ATTENDANT- precert has been approved Soc wk [facility] With update CME to complete [facility] ambulette transport requested through [facility] Pt spouse updated and pt /spous e informed of expense for ambulette Patient Name: Dulce Peñaloza Admit Date: [id number] MR #: [id number] : 1950 Physicians: Jl Whatley MD (Family) 7 Day Post-Op Post op pain: controlled with po pain meds, she is now using 1-2 tab of [place] and 5mg flexeril. She has an increase in back pain with attempted ambulation. Surgical site neurologic potential complications: denies new lower extremity pain, weakness or numbness General symptoms: denies chest pain, shortness of breath, nausea or vomiting. She reports she is now passing gas. No has moved her bowels and is tolerating a regular diet. She denies headache, dizziness, or vision changes. Medications: Current Facility-Administered Medications: aliskiren (TEKTURNA) tablet 150 mg, 150 mg, Oral, BID, Sivakumar Whatley CNP, 150 mg at 10/31/20 1700 aluminum-magnesium hydroxide-simethicone (MAALOX PLUS) 200-200-20 mg/5 mL suspension 30 mL, 30 mL, Oral, Q4H PRN, Sivakumar Whatley CNP bisacodyL (DULCOLAX) suppository 10 mg, 10 mg, Rectal, Daily PRN, Sivakumar Whatley CNP cyclobenzaprine (FLEXERIL) tablet 5 mg, 5 mg, Oral, Q8H PRN, Sivakumar Whatley CNP, 5 mg at 11/01/20 022 HYDROcodone-acetaminophen (NORCO) 5-325 mg per tablet 1-2 tablet, 1-2 tablet, Oral, Q4H PRN, Sivakumar Whatley CNP, 2 tablet at 11/01/20 012 loratadine (CLARITIN) tablet 10 mg, 10 mg, Oral, Daily, Sivakumar Whately CNP, 10 mg at 10/31/20837 magnesium hydroxide (MOM) 400 mg/5 mL suspension 2,400 mg, 30 mL, Oral, Daily PRN, Sivakumar Whatley CNP metoprolol succinate (TOPROL-XL) 24 hr tablet 25 mg, 25 mg, Oral, Daily, Sivakumar Whatley CNP, 25 mg at 10/31/20 09 metoprolol succinate (TOPROL-XL) 24 hr tablet 50 mg, 50 mg, Oral, Nightly, Cherise Prieto MD, 50 mg at 10/31/202034 naloxone (NARCAN) injection 0.1 mg, 0.1 mg, Intravenous, PRN AND Notify physician, , , Until Discontinued AND naloxone (NARCAN) injection 0.4 mg, 0.4 mg, Intravenous, PRN, Sivakumar Whatley CNP ondansetron (ZOFRAN-ODT) disintegrating tablet 4 mg, 4 mg, Oral, Q6H PRN OR ondansetron (ZOFRAN) injection 4 mg, 4 mg, Intravenous, Q6H PRN, Sivakumar Whatley CNP pantoprazole (PROTONIX) EC tablet 40 mg, 40 mg, Oral, Daily, Sivakumar Whatley CNP, 40 mg at 10/31/20837 polyethylene glycol (MIRALAX) powder 17 g, 17 g, Oral, Daily, Cherise Prieto MD, 17 g at 10/31/20837 senna-docusate (SENNA-S) 8.6-50 mg per tablet 1 tablet, 1 tablet, Oral, BID, Sivakumar Whatley CNP, 1 tablet at 10/31/202035 Saline lock IV, , , Continuous AND sodium chloride (PF) (NS) flush 5 mL, 5 mL, Intravenous, PRN, 5 mL at 10/31/20 2036 AND sodium chloride (PF) (NS) flush 5 mL, 5 mL, Intravenous, Q8H BETSY, 5 mL at 10/31/20 1400 AND sodium chloride 0.9% (NS), 0-150 mL/hr, Intravenous, PRN, Sivakumar Whatley CNP sodium chloride 0.9% (NS), 100 mL/hr, Intravenous, Continuous, Sivakumar Whatley CNP, Stopped at 10/26/20 0313 triamterene-hydrochlorothiazide (MAXZIDE-25) 37.5-25 mg per tablet 0.5 tablet, 0.5 tablet, Oral, Once per day on Thu, Sivakumar Whatley CNP, 0.5 tablet at 10/31/20 0900 Physical Examination: Vital Signs: BP 105/62 (BP Location: Right arm, Patient Position: Lying) Pulse 62 Temp 97.6 F (36.4 C) (Oral) Resp 16 Ht 5' 6 Wt 120.9 kg (266 lb 8.6 oz) SpO2 93% BMI 43.02 kg/m I/O last 3 completed shifts: In: 1025 [P.O.:1020; I.V.:5] Out: 900 [Urine:900] No intake/output data recorded. Patient Appears in no acute distress. She log rolls in the bed with minimal assistance Patient alert oriented and cooperative. Lower extremity motor is strong and symmetric. Wound clean, dry and intact, no drainage Lab: Lab Results Component Value Date WBC 7.94 10/27/2020 HGB 11.4 (L) 10/27/2020 HCT 35.6 (L) 10/27/2020 MCV 93.4 10/27/2020 PLT 157 10/27/2020 Lab Results Component Value Date GLUCOSE 90 10/27/2020 CALCIUM 7.9 (L) 10/27/2020 NA 136 10/27/2020 K 4.1 10/27/2020 CL 106 10/27/2020 BUN 17 10/27/2020 CREATININE 0.90 10/27/2020 IMAGING: X-rays of the lumbar spine 10/29/[address] Prieto. Stable imagines. Her alignment appears satisfactory with hardware in appropriate position. No evidence of complication. The report: IMPRESSION: Postoperative changes of posterior decompression laminectomy. There are postoperative changes of interbody fusion L4-5 without radiographic signs of hardware complications. Assessment: Generally satisfactory post operative course. Slow progress with ambulation Plan : Continue PT Monitor wound. Monitor VS's, including O2 sat. She will likely benefit from ECF placement for continued rehab Ok to discharge once those arrangements are made, discharge orders placed Dressing changes once daily Activity restrictions reinforced Continue to taper pain medication Bowel regimen COMPLEX DISCHARGE Date: 10/31/2020 Time: 1:29 PM Patient Name: Dulce Peñaloza Date of : 1950 Sex: Female Social Work following for discharge planning. Awaiting precert authorization. Met with patient and spouse at bedside per their request. Offered support and explained precertification authorization has not yet been received from SNF. Patient states she is still in agreement to SNF placement. Spouse presents with questions regarding transportation to SNF for patient. Medicare quide lines regarding transport reviewed with patient and spouse. Social Work explored transportation options. Social Work will continue to follow. Living Arrangements: Spouse/significant other Caregiver Identified: No Support Systems: Spouse/significant other Assistance Needed: no Type of Residence: Private residence Prior to Admission Home Care Services: No Patient expects to be discharged to:: TBD Does the patient need discharge transport arranged?: No Current Home Equipment: Walker [facility] Disposition D/C Disposition: Assisted Facility Agency/Destination: [facility] Estimated Length of Stay (ELOS): 11 HME: None Regulatory Documentation: Medicare IM Regulatory Documentation Status: Certified DISCHARGE PLAN PROGRESS NOTE Date: 10/31/2020 Time: 10:47 AM Patient Name: Dulce Peñaloza Date of : 1950 Sex: Female Office Inspector Panelboard Assembler communicated with Delphine with [facility] who reports acceptance. Pre-cert pending. Floor MechanicStephanie, updated via Secure Chat. [facility] Disposition D/C Disposition: Assisted Facility Agency/Destination: [place] Estimated Length of Stay (ELOS): 11 HME: None Regulatory Documentation: Medicare Regulatory Documentation Status: Certified Anticipated Discharge Plan Anticipated HME: Undetermined Anticipated Home Care Needs: Undetermined Anticipated Facility Type: Undetermined Occupational Therapy OCCUPATIONAL THERAPY TREATMENT NOTE Skilled Therapy Needs After Discharge Anticipate Resolution of Current Assessment Limitations Including: Pain, Mechanical Barriers Are Skilled Therapy Services Needed After Discharge: Yes Intensity of Skilled Therapy: 5 to 7 days per week Anticipated Duration of Skilled Therapy: Duration 10 - 30 days DME Recommendation: To be determined at next level of care DME Rationale: Patient's condition creates an increased risk of safety hazard without recommended equipment, Patient's condition prevents him/her from accomplishing ADL without recommended equipment Rehab Potential: Good NurseRita, agreeable with OT treatment at this time. Patient reports no increased pain upon end of evaluation, left with all immediate needs met, and call light within reach. White board was updated and RN was notified of patient's mobility status. Patient left supine in bed with bed alarm activated due to fall risk score. Patient reported high pain at end of treatment session, RN notified. I utilized the following PPE throughout this therapy session: Gloves, Surgical mask and Safety glasses A [employer] Power Plant Superintendent did not assist with this evaluation. Outcomes Measures Prior Function Daily Activity Raw Score: 24 Prior Function Daily Activity % Impaired: 0% AM-PAC Daily Activity Raw Score: 16 AM-PAC Daily Activity % Impaired: 53.32% Activity Tolerance Activity Tolerance: Tolerates 10 - 20 min activity with multiple rests Therapy Precautions Orthotic Devices: No Weight Bearing Status: WFL General Rehab Precautions: Fall risk, Back Cognition Arousal/Alertness: Appropriate responses to stimuli Orientation Level: Oriented X4 Executive functioning: Sequencing Safety Judgment: Good awareness of safety precautions Problem Solving: Assistance required to generate solutions, Assistance required to implement solutions Attention: Attends to quiet environment Social Interaction: Cooperative ADL in preparation for discharge: Grooming: Minimal assist, Set-up Grooming - Skilled Intervention Provided: facilitation, patient education Grooming - For: fall prevention, proper body mechanics, necessary precautions, task simplification/modification Grooming - Resulting In: improved functional independence, improved participation in ADL task UE Bathing: Minimal assist UE Bathing - Skilled Intervention Provided: facilitation, patient education UE Bathing - For: fall prevention, proper body mechanics, necessary precautions UE Bathing - Resulting In: improved activity tolerance, improved functional independence, improved performance with ADLs LE Bathing: Moderate assist LE Bathing - Skilled Intervention Provided: facilitation, patient education LE Bathing - For: LE management, adaptive techniques for lower body ADLs, proper body mechanics, necessary precautions LE Bathing - Resulting In: improved ability to understand / adhere to precautions, improved participation in ADL task UE Dressing: Set-up, Minimal assist UE Dressing - Skilled Intervention Provided: facilitation, patient education UE Dressing - For: fall prevention, proper body mechanics, task simplification/modification UE Dressing - Resulting In: improved ability to understand / adhere to precautions, improved participation in ADL task LE Dressing: Moderate assist, Increased time to complete LE Dressing - Skilled Intervention Provided: environmental setup/modification, facilitation, patient education LE Dressing - For: LE management, adaptive techniques for lower body ADLs, necessary precautions, proper body mechanics LE Dressing - Resulting In: improved ability to understand / adhere to precautions, improved participation in ADL task Toileting: Moderate assist Toileting - Skilled Intervention Provided: facilitation, patient education Toileting - For: LE management, necessary precautions, proper body mechanics Toileting - Resulting In: improved ability to understand / adhere to precautions, improved participation in ADL task Functional Mobility: Contact guard assist Functional Mobility - Skilled Intervention Provided: facilitation, patient education Functional Mobility - For: increased participation in mobility task, safe use of AD and/or equipment, proper body mechanics Functional Mobility - Resulting In: improved activity tolerance, improved safety, improved performance Overall ADL Performance - Skilled Intervention Provided: facilitation, environmental setup/modification, patient education Overall ADL Performance - For: LE management, safe use of AD and/or equipment, proper body mechanics, necessary precautions, compensatory strategies Overall ADL Performance - Resulting In: improved activity tolerance, improved balance Bed Mobility in preparation for discharge: Rolling: Moderate assist Supine to Sit: Moderate assist Sit to Supine: Moderate assist Bond Manager: bedrails Skilled Intervention Provided: facilitation, patient education For: logroll technique, proper body mechanics, necessary precautions, safety during functional task(s) Resulting In: improved activity tolerance, improved adherence to precautions, increased initiation in mobility task(s) Functional Transfers in preparation for discharge: Sit to Stand: Minimal assist Bed to Chair Transfers: Minimal assist Toilet Transfers: Minimal assist Bond Manager: wheeled walker Skilled Intervention Provided: facilitation, patient education For: increased participation in mobility task, safe use of AD and/or equipment, necessary precautions, fall prevention Resulting In: improved activity tolerance, improved balance, improved safety, improved performance Balance Treatment in preparation for discharge: Sitting Balance - Static: Contact guard assist Sitting Balance - Dynamic: Contact guard assist Sitting Balance Treatment: reaching across midline, reaching outside base of support, maintaining midline orientation Skilled Intervention Provided: facilitation, patient education For: LE management, balance recovery, necessary precautions Resulting in: improved activity tolerance, improved adherence to precautions, improved balance reactions Standing Balance - Static: Contact guard assist Bond Manager - Standing Static: wheeled walker Standing Balance - Dynamic: Contact guard assist Bond Manager - Standing Dynamic: wheeled walker Standing Balance Treatment: reaching across midline, reaching outside base of support, reaching within base of support, maintaining midline Skilled Intervention Provided: facilitation, patient education For: balance recovery, necessary precautions, fall prevention Resulting in: improved balance reactions Additional Treatment Details Patient completing bed mobility, toileting, toilet transfer, and bathing tasks. She utilized FWW and gait belt during functional mobility. Educated patient on back precautions with patient being able to verbalize them and demonstrate throughtout therapy session. Home Living Obtained Home Living and PLOF info from: Patient Lives With: Spouse Type of Home: House Home Layout: One level Steps to enter home: Yes Rails to enter home: None Number of stairs to enter home: 1 Bathroom Shower/Tub: Tub/shower unit Bathroom Toilet: Raised Bathroom Equipment: Shower chair, Toilet seat contract administration coordinator Bathroom Accessibility: Accessible Mobility Equipment: Rollator ADL Equipment: Sock aid Additional Objective Details - Home Living: Pt reports rollator use for baseline ambulation Prior Level of Function Receives Help From: Spouse Level of [place] - Transfers/Ambulation/Mobility: Needs mobility assistance/device Level of [place] - ADLs: Independent Level of [place] - Homemaking: Independent Driving: Patient drives Vocational: Retired Leisure: drawing, photography, writing For complete objective data, detailed plan of care and patient education refer to: OT Evaluation flowsheet, OT Evaluation and Treatment flowsheet, OT Treatment flowsheet, patient Plan of Care, Plan of Care progress note, and Patient Education. This note stands as the current Discharge Summary upon patient discharge from the hospital or completion of Occupational Therapy Plan of Care. Patient Name: Dulce Peñaloza Admit Date: [id number] MR #: [id number] : 1950 Physicians: Jl Whatley MD (Family) 6 Day Post-Op Post op pain: controlled with po pain meds, she is now using 1 tab of [place]. She required one dose of IV dilaudid yesterday. She has an increase in back pain with attempted ambulation. Surgical site neurologic potential complications: denies new lower extremity pain, weakness or numbness General symptoms: denies chest pain, shortness of breath, nausea or vomiting. She reports she is now passing gas. No BM yet. She denies headache, dizziness, or vision changes Medications: Current Facility-Administered Medications: aliskiren (TEKTURNA) tablet 150 mg, 150 mg, Oral, BID, Sivakumar Whatley CNP, 150 mg at 10/30/20 165 aluminum-magnesium hydroxide-simethicone (MAALOX PLUS) 200-200-20 mg/5 mL suspension 30 mL, 30 mL, Oral, Q4H PRN, Sivakumar Whatley CNP bisacodyL (DULCOLAX) suppository 10 mg, 10 mg, Rectal, Daily PRN, Sivakumar Whatley CNP cyclobenzaprine (FLEXERIL) tablet 5 mg, 5 mg, Oral, Q8H PRN, Sivakumar Whatley CNP, 5 mg at 10/30/20926 HYDROcodone-acetaminophen (NORCO) 5-325 mg per tablet 1-2 tablet, 1-2 tablet, Oral, Q4H PRN, Sivakumar Whatley CNP, 1 tablet at 10/31/20 0147 loratadine (CLARITIN) tablet 10 mg, 10 mg, Oral, Daily, Sivakumar Whatley CNP, 10 mg at 10/30/20926 magnesium hydroxide (MOM) 400 mg/5 mL suspension 2,400 mg, 30 mL, Oral, Daily PRN, Sivakumar Whatley CNP metoprolol succinate (TOPROL-XL) 24 hr tablet 25 mg, 25 mg, Oral, Daily, Sivakumar Whatley CNP, 25 mg at 10/30/20926 metoprolol succinate (TOPROL-XL) 24 hr tablet 50 mg, 50 mg, Oral, Nightly, Cherise Prieto MD, 50 mg at 10/30/202101 naloxone (NARCAN) injection 0.1 mg, 0.1 mg, Intravenous, PRN AND Notify physician, , , Until Discontinued AND naloxone (NARCAN) injection 0.4 mg, 0.4 mg, Intravenous, PRN, Sivakumar Whatley CNP ondansetron (ZOFRAN-ODT) disintegrating tablet 4 mg, 4 mg, Oral, Q6H PRN OR ondansetron (ZOFRAN) injection 4 mg, 4 mg, Intravenous, Q6H PRN, Sivakumar Whatley CNP pantoprazole (PROTONIX) EC tablet 40 mg, 40 mg, Oral, Daily, Sivakumar Whatley CNP, 40 mg at 10/30/20926 polyethylene glycol (MIRALAX) powder 17 g, 17 g, Oral, Daily, Cherise Prieto MD, 17 g at 10/30/20925 senna-docusate (SENNA-S) 8.6-50 mg per tablet 1 tablet, 1 tablet, Oral, BID, Sivakumar Whatley CNP, 1 tablet at 10/30/202101 Saline lock IV, , , Continuous AND sodium chloride (PF) (NS) flush 5 mL, 5 mL, Intravenous, PRN, 5 mL at 10/28/201999 AND sodium chloride (PF) (NS) flush 5 mL, 5 mL, Intravenous, Q8H BETSY, 5 mL at 10/30/202107 AND sodium chloride 0.9% (NS), 0-150 mL/hr, Intravenous, PRN, Sivakumar Whatley CNP sodium chloride 0.9% (NS), 100 mL/hr, Intravenous, Continuous, Sivakumar Whatley CNP, Stopped at 10/26/20312 triamterene-hydrochlorothiazide (MAXZIDE-25) 37.5-25 mg per tablet 0.5 tablet, 0.5 tablet, Oral, Once per day on Thu, Sivakumar Cho Chacorta, DIETETIC TECHNICIAN, 0.5 tablet at 10/29/20 0812 Physical Examination: Vital Signs: BP 123/72 (BP Location: Right arm, Patient Position: Lying) Pulse 75 Temp 98.4 F (36.9 C) (Oral) Resp 16 Ht 5' 6 Wt 120 kg (264 lb 8.8 oz) SpO2 96% BMI 42.70 kg/m I/O last 3 completed shifts: In: 485 [P.O.:480; I.V.:5] Out: 225 [Urine:225] No intake/output data recorded. Patient Appears in no acute distress. She log rolls in the bed with minimal assistance Patient alert oriented and cooperative. Lower extremity motor is strong and symmetric. Wound clean, dry and intact, no drainage Lab: Lab Results Component Value Date WBC 7.94 10/27/2020 HGB 11.4 (L) 10/27/2020 HCT 35.6 (L) 10/27/2020 MCV 93.4 10/27/2020 PLT 157 10/27/2020 Lab Results Component Value Date GLUCOSE 90 10/27/2020 CALCIUM 7.9 (L) 10/27/2020 NA 136 10/27/2020 K 4.1 10/27/2020 CL 106 10/27/2020 BUN 17 10/27/2020 CREATININE 0.90 10/27/2020 IMAGING: X-rays of the lumbar spine 10/29/[address] Prieto. Stable imagines. Her alignment appears satisfactory with hardware in appropriate position. No evidence of complication. The report: IMPRESSION: Postoperative changes of posterior decompression laminectomy. There are postoperative changes of interbody fusion L4-5 without radiographic signs of hardware complications. Assessment: Generally satisfactory post operative course. Slow progress with ambulation Plan : Continue PT Monitor wound. Monitor VS's, including O2 sat. She will likely benefit from ECF placement for continued rehab Ok to discharge once those arrangements are made, discharge orders placed Continue clear liquid diet until first bowel movement Dressing changes once daily Activity restrictions reinforced Continue to taper pain medication Bowel regimen COMPLEX DISCHARGE Date: 10/30/2020 Time: 9:14 AM Patient Name: Dulce Peñaloza Date of : 1950 Sex: Female Living Arrangements: Spouse/significant other Caregiver Identified: No Support Systems: Spouse/significant other Assistance Needed: no Type of Residence: Private residence Prior to Admission Home Care Services: No Patient expects to be discharged to:: TBD Does the patient need discharge transport arranged?: No Current Home Equipment: Walker [facility] Disposition D/C Disposition: Assisted Facility Agency/Destination: [facility] Estimated Length of Stay (ELOS): 11 HME: None Followed up with patient and patient's spouse this A.M. and he reported that [facility] still not available. Reported that they have decided on [facility]. Had questions about transport mode. Explained that this will be dependent on transfer status at discharge. Explained that if patient is able to stand pivot ind ambulette or car transfer would be more appropriate. Placed Amb SNF order. Called [facility] intake and made referral. Sent clinicals. Patient Name: Dulce Peñaloza Admit Date: [id number] MR #: [id number] : 1950 Physicians: Jl Whatley MD (Family) 5 Day Post-Op Post op pain: controlled with po pain meds, she is now using 1 tab of [place]. She has an increase in back pain with attempted ambulation. Surgical site neurologic potential complications: denies new lower extremity pain, weakness or numbness General symptoms: denies chest pain, shortness of breath, nausea or vomiting. She reports she is now passing gas. No BM yet. She denies headache, dizziness, or vision changes Medications: Current Facility-Administered Medications: aliskiren (TEKTURNA) tablet 150 mg, 150 mg, Oral, BID, Sivakumar Whatley, DIETETIC TECHNICIAN, 150 mg at 10/29/20 1580 aluminum-magnesium hydroxide-simethicone (MAALOX PLUS) 200-200-20 mg/5 mL suspension 30 mL, 30 mL, Oral, Q4H PRN, Sivakumar Whatley CNP bisacodyL (DULCOLAX) suppository 10 mg, 10 mg, Rectal, Daily PRN, Sivakumar Whatley CNP cyclobenzaprine (FLEXERIL) tablet 5 mg, 5 mg, Oral, Q8H PRN, Sivakumar Whatley CNP, 5 mg at 10/29/20 1648 HYDROcodone-acetaminophen (NORCO) 5-325 mg per tablet 1-2 tablet, 1-2 tablet, Oral, Q4H PRN, Sivakumar Whatley CNP, 1 tablet at 10/30/20 0704 loratadine (CLARITIN) tablet 10 mg, 10 mg, Oral, Daily, Sivakumar Whatley CNP, 10 mg at 10/29/20 08 magnesium hydroxide (MOM) 400 mg/5 mL suspension 2,400 mg, 30 mL, Oral, Daily PRN, Sivakumar Whatley CNP metoprolol succinate (TOPROL-XL) 24 hr tablet 25 mg, 25 mg, Oral, Daily, Sivakumar Whatley CNP, 25 mg at 10/29/20 0812 metoprolol succinate (TOPROL-XL) 24 hr tablet 50 mg, 50 mg, Oral, Nightly, Cherise Prieto MD, 50 mg at 10/29/20 2132 naloxone (NARCAN) injection 0.1 mg, 0.1 mg, Intravenous, PRN AND Notify physician, , , Until Discontinued AND naloxone (NARCAN) injection 0.4 mg, 0.4 mg, Intravenous, PRN, Sivakumar Whatley CNP ondansetron (ZOFRAN-ODT) disintegrating tablet 4 mg, 4 mg, Oral, Q6H PRN OR ondansetron (ZOFRAN) injection 4 mg, 4 mg, Intravenous, Q6H PRN, Sivakumar Whatley CNP pantoprazole (PROTONIX) EC tablet 40 mg, 40 mg, Oral, Daily, Sivakumar Whatley CNP, 40 mg at 10/29/20 0812 polyethylene glycol (MIRALAX) powder 17 g, 17 g, Oral, Daily, Cherise Prieto MD, 17 g at 10/29/20 0812 senna-docusate (SENNA-S) 8.6-50 mg per tablet 1 tablet, 1 tablet, Oral, BID, Sivakumar Whatley CNP, 1 tablet at 10/29/202131 Saline lock IV, , , Continuous AND sodium chloride (PF) (NS) flush 5 mL, 5 mL, Intravenous, PRN, 5 mL at 10/28/201999 AND sodium chloride (PF) (NS) flush 5 mL, 5 mL, Intravenous, Q8H BETSY, 5 mL at 10/29/202131 AND sodium chloride 0.9% (NS), 0-150 mL/hr, Intravenous, PRN, Sivakumar Whatley CNP sodium chloride 0.9% (NS), 100 mL/hr, Intravenous, Continuous, Sivakumar Whatley CNP, Stopped at 10/26/20312 triamterene-hydrochlorothiazide (MAXZIDE-25) 37.5-25 mg per tablet 0.5 tablet, 0.5 tablet, Oral, Once per day on Thu, Sivakumar Whatley CNP, 0.5 tablet at 10/29/20811 Physical Examination: Vital Signs: BP 98/62 (BP Location: Right arm, Patient Position: Lying) Pulse 70 Temp 98.8 F (37.1 C) (Oral) Resp 16 Ht 5' 6 Wt 119.4 kg (263 lb 3.7 oz) SpO2 94% BMI 42.49 kg/m I/O last 3 completed shifts: In: 720 [P.O.:715; I.V.:5] Out: 400 [Urine:400] No intake/output data recorded. Patient Appears in no acute distress. She log rolls in the bed with minimal assistance Patient alert oriented and cooperative. Lower extremity motor is strong and symmetric. Wound clean, dry and intact, no drainage Lab: Lab Results Component Value Date WBC 7.94 10/27/2020 HGB 11.4 (L) 10/27/2020 HCT 35.6 (L) 10/27/2020 MCV 93.4 10/27/2020 PLT 157 10/27/2020 Lab Results Component Value Date GLUCOSE 90 10/27/2020 CALCIUM 7.9 (L) 10/27/2020 NA 136 10/27/2020 K 4.1 10/27/2020 CL 106 10/27/2020 BUN 17 10/27/2020 CREATININE 0.90 10/27/2020 IMAGING: X-rays of the lumbar spine 10/29/[address] Prieto. Stable imagines. Her alignment appears satisfactory with hardware in appropriate position. No evidence of complication. The report: IMPRESSION: Postoperative changes of posterior decompression laminectomy. There are postoperative changes of interbody fusion L4-5 without radiographic signs of hardware complications. Assessment: Generally satisfactory post operative course. Intraoperative dural defect with successful repair, no evidence of continued CSF leak Slow progress with ambulation Plan : Continue PT Monitor wound. Monitor VS's, including O2 sat. She will likely benefit from ECF placement for continued rehab Ok to discharge once those arrangements are made Occupational Therapy OCCUPATIONAL THERAPY TREATMENT NOTE Skilled Therapy Needs After Discharge Anticipate Resolution of Current Assessment Limitations Including: Mechanical Barriers, Social Support, Pain Are Skilled Therapy Services Needed After Discharge: Yes Intensity of Skilled Therapy: 2-3 days per week Anticipated Duration of Skilled Therapy: Duration 10 - 30 days DME Recommendation: Adaptive equipment kit DME Rationale: Patient's condition creates an increased risk of safety hazard without recommended equipment, Patient's condition prevents him/her from accomplishing ADL without recommended equipment Rehab Potential: Good Outcomes Measures Prior Function Daily Activity Raw Score: 24 Prior Function Daily Activity % Impaired: 0% AM-PAC Daily Activity Raw Score: 17 AM-PAC Daily Activity % Impaired: 50.11% Therapy Precautions Orthotic Devices: No Weight Bearing Status: WFL General Rehab Precautions: Fall risk, Back ADL Grooming: Contact guard assist Grooming - Skilled Intervention Provided: verbal cues, patient education Grooming - For: UE management, UE positioning, compensatory strategies, energy conservation, fall prevention, postural alignment Grooming - Resulting In: improved activity tolerance, improved overall self care, improved participation in ADL task, improved functional independence, increased self-management of symptoms and impairments, increased upright tolerance for functional tasks Functional Mobility: Contact guard assist Functional Mobility - Skilled Intervention Provided: verbal cues, patient education Functional Mobility - For: controlled descent, fall prevention, safe use of AD and/or equipment, self-monitoring during activity Functional Mobility - Resulting In: improved activity tolerance, improved balance, improved performance, improved safety in preparation for discharge. Bed Mobility Supine to Sit: Minimal assist Skilled Intervention Provided: verbal cues, patient education For: logroll technique, fall prevention, efficient movement, safety during functional task(s), safe use of bedrails and/or equipment Resulting In: improved activity tolerance, improved adherence to precautions, improved performance, improved safety Functional Transfers Sit to Stand: Contact guard assist Skilled Intervention Provided: verbal cues, patient education For: necessary precautions, self-monitoring during activity, sequencing of movement Resulting In: improved activity tolerance, improved performance, improved safety Balance Treatment Standing Balance - Static: Contact guard assist Skilled Intervention Provided: verbal cues, patient education For: fall prevention, necessary precautions Resulting in: improved activity tolerance, improved adherence to precautions, improved performance, improved safety, decreased fall risk Additional Treatment Details Patient ok by nursing to be seen this morning, patient seated in chair reporting 3/10 low back upon arrival, treatment provided with no changes in pain, patient left lying in bed with bed alarm engaged, call light within reach and all immediate needs met. I utilized the following PPE throughout this therapy session: Gloves, Surgical mask and Safety glasses A [employer] Superintendent did not assist during therapy session. Home Living Obtained Home Living and PLOF info from: Patient Lives With: Spouse Type of Home: House Home Layout: One level Steps to enter home: Yes Rails to enter home: None Number of stairs to enter home: 1 Bathroom Shower/Tub: Tub/shower unit Bathroom Toilet: Raised Bathroom Equipment: Shower chair, Toilet seat contract administration coordinator Bathroom Accessibility: Accessible Mobility Equipment: Rollator ADL Equipment: Sock aid Additional Objective Details - Home Living: Pt reports rollator use for baseline ambulation Prior Level of Function Receives Help From: Spouse Level of [place] - Transfers/Ambulation/Mobility: Needs mobility assistance/device Level of [place] - ADLs: Independent Level of [place] - Homemaking: Independent Driving: Patient drives Vocational: Retired Leisure: drawing, photography, writing For complete objective data, detailed plan of care and patient education refer to: OT Evaluation flowsheet, OT Evaluation and Treatment flowsheet, OT Treatment flowsheet, patient Plan of Care, Plan of Care progress note, and Patient Education. This note stands as the current Discharge Summary upon patient discharge from the hospital or completion of Occupational Therapy Plan of Care. Patient Name: Dulce Peñaloza Admit Date: [id number] MR #: [id number] : 1950 Physicians: Jl Whatley MD (Family) 4 Day Post-Op Post op pain: controlled with po pain meds, 2 tabs of [place]. She has an increase in back pain with attempted ambulation. Surgical site neurologic potential complications: denies new lower extremity pain, weakness or numbness General symptoms: denies chest pain, shortness of breath, nausea or vomiting. She reports she is now passing gas. No BM yet. She denies headache, dizziness, or vision changes Medications: Current Facility-Administered Medications: aliskiren (TEKTURNA) tablet 150 mg, 150 mg, Oral, BID, Sivakumar Whatley CNP, 150 mg at 10/28/20 1733 aluminum-magnesium hydroxide-simethicone (MAALOX PLUS) 200-200-20 mg/5 mL suspension 30 mL, 30 mL, Oral, Q4H PRN, Sivakumar Whatley CNP bisacodyL (DULCOLAX) suppository 10 mg, 10 mg, Rectal, Daily PRN, Sivakumar Whatley CNP cyclobenzaprine (FLEXERIL) tablet 5 mg, 5 mg, Oral, Q8H PRN, Sivakumar Whatley CNP, 5 mg at 10/28/20 2355 HYDROcodone-acetaminophen (NORCO) 5-325 mg per tablet 1-2 tablet, 1-2 tablet, Oral, Q4H PRN, Sivakumar Whatley CNP, 2 tablet at 10/28/20 2355 loratadine (CLARITIN) tablet 10 mg, 10 mg, Oral, Daily, Sivakumar Whatley CNP, 10 mg at 10/28/20 0728 magnesium hydroxide (MOM) 400 mg/5 mL suspension 2,400 mg, 30 mL, Oral, Daily PRN, Sivakumar Whatley CNP metoprolol succinate (TOPROL-XL) 24 hr tablet 25 mg, 25 mg, Oral, Daily, Sivakumar Whatley CNP, 25 mg at 10/28/20 0727 metoprolol succinate (TOPROL-XL) 24 hr tablet 50 mg, 50 mg, Oral, Nightly, Cherise Prieto MD, 50 mg at 10/28/201955 naloxone (NARCAN) injection 0.1 mg, 0.1 mg, Intravenous, PRN AND Notify physician, , , Until Discontinued AND naloxone (NARCAN) injection 0.4 mg, 0.4 mg, Intravenous, PRN, Sivakumar Whatley CNP ondansetron (ZOFRAN-ODT) disintegrating tablet 4 mg, 4 mg, Oral, Q6H PRN OR ondansetron (ZOFRAN) injection 4 mg, 4 mg, Intravenous, Q6H PRN, Sivakumar Whatley CNP pantoprazole (PROTONIX) EC tablet 40 mg, 40 mg, Oral, Daily, Sivakumar Whatley CNP, 40 mg at 10/28/20 0728 polyethylene glycol (MIRALAX) powder 17 g, 17 g, Oral, Daily, Cherise Prieto MD, 17 g at 10/28/20 1733 senna-docusate (SENNA-S) 8.6-50 mg per tablet 1 tablet, 1 tablet, Oral, BID, Sivakumar Whatley CNP, 1 tablet at 10/28/201955 Saline lock IV, , , Continuous AND sodium chloride (PF) (NS) flush 5 mL, 5 mL, Intravenous, PRN, 5 mL at 10/28/201999 AND sodium chloride (PF) (NS) flush 5 mL, 5 mL, Intravenous, Q8H BETSY, 5 mL at 10/26/202 AND sodium chloride 0.9% (NS), 0-150 mL/hr, Intravenous, PRN, Sivakumar Whatley CNP sodium chloride 0.9% (NS), 100 mL/hr, Intravenous, Continuous, Sivakumar Whatley CNP, Stopped at 10/26/20 0313 triamterene-hydrochlorothiazide (MAXZIDE-25) 37.5-25 mg per tablet 0.5 tablet, 0.5 tablet, Oral, Once per day on Thu, Sivakumar Whatley CNP, 0.5 tablet at 10/26/20 0800 Physical Examination: Vital Signs: BP 133/80 (BP Location: Right arm, Patient Position: Lying) Pulse 72 Temp 98.5 F (36.9 C) (Oral) Resp 16 Ht 5' 6 Wt 120.6 kg (265 lb 14 oz) SpO2 98% BMI 42.91 kg/m I/O last 3 completed shifts: In: 1315 [P.O.:1315] Out: 1635 [Urine:1600; Drains:35] No intake/output data recorded. Patient Appears in no acute distress. She log rolls in the bed with minimal assistance Patient alert oriented and cooperative. Lower extremity motor is strong and symmetric. Wound clean, dry and intact, no drainage Lab: Lab Results Component Value Date WBC 7.94 10/27/2020 HGB 11.4 (L) 10/27/2020 HCT 35.6 (L) 10/27/2020 MCV 93.4 10/27/2020 PLT 157 10/27/2020 Lab Results Component Value Date GLUCOSE 90 10/27/2020 CALCIUM 7.9 (L) 10/27/2020 NA 136 10/27/2020 K 4.1 10/27/2020 CL 106 10/27/2020 BUN 17 10/27/2020 CREATININE 0.90 10/27/2020 Assessment: Generally satisfactory post operative course. Intraoperative dural defect with successful repair, no evidence of continued CSF leak Slow progress with ambulation Plan : Standing x-rays ordered to check alignment Continue PT Monitor wound. Monitor VS's, including O2 sat. Target discharge tomorrow Patient Name: Dulce Peñaloza Admit Date: [id number] MR #: [id number] : 1950 Physicians: Jl Whatley MD (Family) 3 Day Post-Op Post op pain: controlled with po pain meds, 2 tabs of [place]. She has an increase in back pain with attempted ambulation. Surgical site neurologic potential complications: denies new lower extremity pain, weakness or numbness General symptoms: denies chest pain, shortness of breath, nausea or vomiting. She reports she is now passing gas. No BM yet. She denies headache, dizziness, or vision changes Medications: Current Facility-Administered Medications: aliskiren (TEKTURNA) tablet 150 mg, 150 mg, Oral, BID, Sivakumar Whatley CNP, 150 mg at 10/28/20 0750 aluminum-magnesium hydroxide-simethicone (MAALOX PLUS) 200-200-20 mg/5 mL suspension 30 mL, 30 mL, Oral, Q4H PRN, Sivakumar Whatley CNP bisacodyL (DULCOLAX) suppository 10 mg, 10 mg, Rectal, Daily PRN, Sivakumar Whatley CNP cyclobenzaprine (FLEXERIL) tablet 5 mg, 5 mg, Oral, Q8H PRN, Sivakumar Whatley CNP, 5 mg at 10/28/20727 HYDROcodone-acetaminophen (NORCO) 5-325 mg per tablet 1-2 tablet, 1-2 tablet, Oral, Q4H PRN, Sivakumar Whatley CNP, 2 tablet at 10/28/20726 loratadine (CLARITIN) tablet 10 mg, 10 mg, Oral, Daily, Sivakumar Whatley CNP, 10 mg at 10/28/20727 magnesium hydroxide (MOM) 400 mg/5 mL suspension 2,400 mg, 30 mL, Oral, Daily PRN, Sivakumar Whatley CNP metoprolol succinate (TOPROL-XL) 24 hr tablet 25 mg, 25 mg, Oral, Daily, Sivakumar Whatley CNP, 25 mg at 10/28/20726 metoprolol succinate (TOPROL-XL) 24 hr tablet 50 mg, 50 mg, Oral, Nightly, Cherise Prieto MD, 50 mg at 10/27/202025 naloxone (NARCAN) injection 0.1 mg, 0.1 mg, Intravenous, PRN AND Notify physician, , , Until Discontinued AND naloxone (NARCAN) injection 0.4 mg, 0.4 mg, Intravenous, PRN, Sivakumar Whatley CNP ondansetron (ZOFRAN-ODT) disintegrating tablet 4 mg, 4 mg, Oral, Q6H PRN OR ondansetron (ZOFRAN) injection 4 mg, 4 mg, Intravenous, Q6H PRN, Sivakumar Whatley CNP pantoprazole (PROTONIX) EC tablet 40 mg, 40 mg, Oral, Daily, Sivakumar Whatley CNP, 40 mg at 10/28/20 0728 senna-docusate (SENNA-S) 8.6-50 mg per tablet 1 tablet, 1 tablet, Oral, BID, Sivakumar Whatley CNP, 1 tablet at 10/28/20 0728 Saline lock IV, , , Continuous AND sodium chloride (PF) (NS) flush 5 mL, 5 mL, Intravenous, PRN AND sodium chloride (PF) (NS) flush 5 mL, 5 mL, Intravenous, Q8H BETSY, 5 mL at 10/26/20 2232 AND sodium chloride 0.9% (NS), 0-150 mL/hr, Intravenous, PRN, Sivakumar Whatley CNP sodium chloride 0.9% (NS), 100 mL/hr, Intravenous, Continuous, Sivakumar Whatley CNP, Stopped at 10/26/20 0313 triamterene-hydrochlorothiazide (MAXZIDE-25) 37.5-25 mg per tablet 0.5 tablet, 0.5 tablet, Oral, Once per day on Thu, Sivakumar Whatley CNP, 0.5 tablet at 10/26/20 0800 Physical Examination: Vital Signs: BP (!) 154/81 (BP Location: Right arm, Patient Position: Lying) Pulse 72 Temp 99.5 F (37.5 C) (Oral) Resp 15 Ht 5' 6 Wt 120.8 kg (266 lb 5.1 oz) SpO2 96% BMI 42.98 kg/m I/O last 3 completed shifts: In: 800 [P.O.:800] Out: 1660 [Urine:1575; Drains:85] I/O this shift: In: - Out: 300 [Urine:300] Patient Appears in no acute distress. She is sitting up in the recliner this morning. Patient alert oriented and cooperative. Lower extremity motor is strong and symmetric. Wound clean, dry and intact. Decreasing drain output Lab: Lab Results Component Value Date WBC 7.94 10/27/2020 HGB 11.4 (L) 10/27/2020 HCT 35.6 (L) 10/27/2020 MCV 93.4 10/27/2020 PLT 157 10/27/2020 Lab Results Component Value Date GLUCOSE 90 10/27/2020 CALCIUM 7.9 (L) 10/27/2020 NA 136 10/27/2020 K 4.1 10/27/2020 CL 106 10/27/2020 BUN 17 10/27/2020 CREATININE 0.90 10/27/2020 Assessment: Generally satisfactory post operative course. Intraoperative dural defect with successful repair, no evidence of continued CSF leak Slow progress with ambulation Plan : Replace IV Continue PT Drain discontinued Monitor wound. Monitor VS's, including O2 sat. Monitor labs. Patient Name: Dulce Peñaloza Admit Date: [id number] MR #: [id number] : 1950 Physicians: Jl Whatley MD (Family) 2 Day Post-Op Post op pain: controlled with po pain meds, 2 tabs of [place] Surgical site neurologic potential complications: denies new lower extremity pain, weakness or numbness General symptoms: denies chest pain, shortness of breath, nausea or vomiting. She reports she is now passing gas. No BM yet. She denies headache, dizziness, or vision changes Medications: Current Facility-Administered Medications: aliskiren (TEKTURNA) tablet 150 mg, 150 mg, Oral, BID, Sivakumar Whatley CNP, 150 mg at 10/27/20 0900 aluminum-magnesium hydroxide-simethicone (MAALOX PLUS) 200-200-20 mg/5 mL suspension 30 mL, 30 mL, Oral, Q4H PRN, Sivakumar Whatley CNP bisacodyL (DULCOLAX) suppository 10 mg, 10 mg, Rectal, Daily PRN, Sivakumar Whatley CNP cyclobenzaprine (FLEXERIL) tablet 5 mg, 5 mg, Oral, Q8H PRN, Sivakumar Whatley CNP, 5 mg at 10/27/20 0406 HYDROcodone-acetaminophen (NORCO) 5-325 mg per tablet 1-2 tablet, 1-2 tablet, Oral, Q4H PRN, Sivakumar Whatley CNP, 2 tablet at 10/27/20 0732 ketorolac (TORADOL) injection 15 mg, 15 mg, Intravenous, Q6H PRN, Sivakumar Whatley CNP, 15 mg at 10/27/20 0859 loratadine (CLARITIN) tablet 10 mg, 10 mg, Oral, Daily, Sivakumar Whatley CNP, 10 mg at 10/27/20 0859 magnesium hydroxide (MOM) 400 mg/5 mL suspension 2,400 mg, 30 mL, Oral, Daily PRN, Sivakumar Whatley CNP metoprolol succinate (TOPROL-XL) 24 hr tablet 25 mg, 25 mg, Oral, Daily, Sivakumar Whatley CNP, 25 mg at 10/27/20 0859 metoprolol succinate (TOPROL-XL) 24 hr tablet 50 mg, 50 mg, Oral, Nightly, Cherise Prieto MD, 50 mg at 10/26/202040 naloxone (NARCAN) injection 0.1 mg, 0.1 mg, Intravenous, PRN AND Notify physician, , , Until Discontinued AND naloxone (NARCAN) injection 0.4 mg, 0.4 mg, Intravenous, PRN, Sivakumar Whatley CNP ondansetron (ZOFRAN-ODT) disintegrating tablet 4 mg, 4 mg, Oral, Q6H PRN OR ondansetron (ZOFRAN) injection 4 mg, 4 mg, Intravenous, Q6H PRN, Sivakumar Whatley CNP pantoprazole (PROTONIX) EC tablet 40 mg, 40 mg, Oral, Daily, Sivakumar Whatley CNP, 40 mg at 10/27/20 0859 senna-docusate (SENNA-S) 8.6-50 mg per tablet 1 tablet, 1 tablet, Oral, BID, Sivakumar Whatley CNP, 1 tablet at 10/27/20 0859 Saline lock IV, , , Continuous AND sodium chloride (PF) (NS) flush 5 mL, 5 mL, Intravenous, PRN AND sodium chloride (PF) (NS) flush 5 mL, 5 mL, Intravenous, Q8H BETSY, 5 mL at 06/04/21 2232 AND sodium chloride 0.9% (NS), 0-150 mL/hr, Intravenous, PRN, Sivakumar Whatley CNP sodium chloride 0.9% (NS), 100 mL/hr, Intravenous, Continuous, Sivakumar Whatley CNP, Stopped at 10/26/20 0313 triamterene-hydrochlorothiazide (MAXZIDE-25) 37.5-25 mg per tablet 0.5 tablet, 0.5 tablet, Oral, Once per day on Thu, Sivakumar Whatley CNP, 0.5 tablet at 10/26/20 0800 Physical Examination: Vital Signs: BP 130/77 (BP Location: Right arm, Patient Position: Lying) Pulse 67 Temp 98.2 F (36.8 C) (Oral) Resp 18 Ht 5' 6 Wt 123.5 kg (272 lb 4.3 oz) SpO2 98% BMI 43.95 kg/m I/O last 3 completed shifts: In: 2231.8 [P.O.:1160; I.V.:971.8; IV Piggyback:100] Out: 1400 [Urine:1000; Drains:400] No intake/output data recorded. Patient Appears in no acute distress. Patient alert oriented and cooperative. Lower extremity motor is strong and symmetric. Wound clean, dry and intact. Decreasing drain output, 25cc thin bloody drainage emptied on exam this morning at 0930 Lab: Lab Results Component Value Date WBC 7.94 10/27/2020 HGB 11.4 (L) 10/27/2020 HCT 35.6 (L) 10/27/2020 MCV 93.4 10/27/2020 PLT 157 10/27/2020 Lab Results Component Value Date GLUCOSE 90 10/27/2020 CALCIUM 7.9 (L) 10/27/2020 NA 136 10/27/2020 K 4.1 10/27/2020 CL 106 10/27/2020 BUN 17 10/27/2020 CREATININE 0.90 10/27/2020 Assessment: Generally satisfactory post operative course. Intraoperative dural defect with successful repair, no evidence of continued CSF leak Acute post op anemia r/t intraoperative blood loss, stable, well tolerated, continue to monitor Plan : Lift bedrest restriction, resume PT with ambulation as tolerated Continue Drain, put to gravity, likely discontinue tomorrow Monitor wound. Monitor VS's, including O2 sat. Monitor labs. Patient Name: Dulce Peñaloza Admit Date: [id number] MR #: [id number] : 1950 Physicians: Jl Whatley MD (Family) 1 Day Post-Op Post op pain: controlled with po pain meds, 2 tabs of [place] Surgical site neurologic potential complications: denies lower extremity pain, weakness or numbness General symptoms: denies chest pain, shortness of breath, nausea or vomiting. She is not yet passing gas. She denies headache, dizziness, or vision changes Medications: Current Facility-Administered Medications: aliskiren (TEKTURNA) tablet 150 mg, 150 mg, Oral, BID, Sivakumar Whatley CNP, 150 mg at 10/26/20 0900 aluminum-magnesium hydroxide-simethicone (MAALOX PLUS) 200-200-20 mg/5 mL suspension 30 mL, 30 mL, Oral, Q4H PRN, Sivakumar Whatley CNP bisacodyL (DULCOLAX) suppository 10 mg, 10 mg, Rectal, Daily PRN, Sivakumar Whatley CNP cyclobenzaprine (FLEXERIL) tablet 5 mg, 5 mg, Oral, Q8H PRN, Sivakumar Whatley CNP, 5 mg at 10/26/20 0249 HYDROcodone-acetaminophen (NORCO) 5-325 mg per tablet 1-2 tablet, 1-2 tablet, Oral, Q4H PRN, Sivakumar Whatley CNP, 2 tablet at 10/26/20 1005 ketorolac (TORADOL) injection 15 mg, 15 mg, Intravenous, Q6H PRN, Sivakumar Whatley CNP, 15 mg at 10/26/20 0749 loratadine (CLARITIN) tablet 10 mg, 10 mg, Oral, Daily, Sivakumar Whatley CNP, 10 mg at 10/26/20 0802 magnesium hydroxide (MOM) 400 mg/5 mL suspension 2,400 mg, 30 mL, Oral, Daily PRN, Sivakumar Whatley CNP metoprolol succinate (TOPROL-XL) 24 hr tablet 25 mg, 25 mg, Oral, Daily, Sivakumar Whatley CNP, 25 mg at 10/26/20 0801 metoprolol succinate (TOPROL-XL) 24 hr tablet 50 mg, 50 mg, Oral, Nightly, Cherise Prieto MD, 50 mg at 10/25/20 2111 naloxone (NARCAN) injection 0.1 mg, 0.1 mg, Intravenous, PRN AND Notify physician, , , Until Discontinued AND naloxone (NARCAN) injection 0.4 mg, 0.4 mg, Intravenous, PRN, Sivakumar Whatley CNP ondansetron (ZOFRAN-ODT) disintegrating tablet 4 mg, 4 mg, Oral, Q6H PRN OR ondansetron (ZOFRAN) injection 4 mg, 4 mg, Intravenous, Q6H PRN, Sivakumar Whatley CNP pantoprazole (PROTONIX) EC tablet 40 mg, 40 mg, Oral, Daily, Sivakumar Whatley CNP, 40 mg at 10/26/20 0802 senna-docusate (SENNA-S) 8.6-50 mg per tablet 1 tablet, 1 tablet, Oral, BID, Sivakumar Whatley CNP, 1 tablet at 10/26/20 0802 Saline lock IV, , , Continuous AND sodium chloride (PF) (NS) flush 5 mL, 5 mL, Intravenous, PRN AND sodium chloride (PF) (NS) flush 5 mL, 5 mL, Intravenous, Q8H BETSY, 5 mL at 10/26/20 0554 AND sodium chloride 0.9% (NS), 0-150 mL/hr, Intravenous, PRN, Sivakumar Whatley CNP sodium chloride 0.9% (NS), 100 mL/hr, Intravenous, Continuous, Sivakumar Whatley CNP, Stopped at 10/26/20 0313 triamterene-hydrochlorothiazide (MAXZIDE-25) 37.5-25 mg per tablet 0.5 tablet, 0.5 tablet, Oral, Once per day on Thu, Sivakumar Whatley CNP, 0.5 tablet at 10/26/20 0800 Physical Examination: Vital Signs: BP 111/68 (BP Location: Right arm, Patient Position: Lying) Pulse 70 Temp 98.3 F (36.8 C) (Oral) Resp 18 Ht 5' 6 Wt 123.3 kg (271 lb 13.2 oz) SpO2 92% BMI 43.87 kg/m I/O last 3 completed shifts: In: 3081.8 [P.O.:360; I.V.:2671.8; IV Piggyback:50] Out: 1650 [Urine:900; Drains:350; Blood:400] I/O this shift: In: - Out: 25 [Drains:25] Patient Appears in no acute distress. Patient alert oriented and cooperative. Lower extremity motor is strong and symmetric. Wound clean, dry and intact. Moderate drain output. Lab: Lab Results Component Value Date WBC 11.87 (H) 10/25/2020 HGB 14.0 10/25/2020 HCT 42.7 10/25/2020 MCV 90.5 10/25/2020 PLT 249 10/25/2020 Lab Results Component Value Date GLUCOSE 156 (H) 10/25/2020 CALCIUM 8.5 10/25/2020 NA 139 10/25/2020 K 5.5 (H) 10/25/2020 CL 109 (H) 10/25/2020 BUN 21 10/25/2020 CREATININE 1.39 (H) 10/25/2020 Assessment: Generally satisfactory post operative course. Intraoperative dural defect with successful repair Plan : Await labs from today, they are currently in process Continue Drain, put to gravity. Monitor wound. Monitor VS's, including O2 sat. Monitor labs. Keep on bedrest until cleared by Dr. Prieto documented in this encounter [facility] 11-01-2020 Miscellaneous Notes Problem: Pain Goal: Manage acute pain Outcome: Partially Met Note: Patient resting comfortably after oral pain meds given. Continue to progress towards goal. Problem: Actual or potential alteration in health Goal: Absence of healthcare acquired conditions Outcome: Partially Met Goal: Knowledge of Interdisciplinary Plan of Care Outcome: Met Note: Patient verbalizes understanding of plan of care. Continue to progress towards goals and adjust plan of care as needs change. Goal: Knowledge of Enviroment Outcome: Met Note: Patient oriented to room/unit and is able to use call light for needs. Problem: Pressure Ulcer - Risk of Goal: Absence of pressure ulcer Outcome: Partially Met Problem: Falls, Risk of Goal: Absence of falls Outcome: Partially Met Note: No falls since admission. Patient reminded to ask for assistance when up. Call light within reach of patient. Continue to progress towards goal. Problem: Pain Goal: Manage acute pain Outcome: Partially Met Goal: Manage chronic pain Outcome: Partially Met Goal: Reduced pain sensation Outcome: Partially Met Goal: Achievement of comfort function goal Outcome: Partially Met Problem: Actual or potential alteration in health Goal: Absence of healthcare acquired conditions Outcome: Partially Met Goal: Knowledge of Interdisciplinary Plan of Care Outcome: Partially Met Goal: Knowledge of Enviroment Outcome: Partially Met Problem: Pressure Ulcer - Risk of Goal: Absence of pressure ulcer Outcome: Partially Met Problem: Falls, Risk of Goal: Absence of falls Outcome: Partially Met Problem: Pain Goal: Manage acute pain Outcome: Partially Met Problem: Actual or potential alteration in health Goal: Knowledge of Interdisciplinary Plan of Care Outcome: Partially Met Problem: Falls, Risk of Goal: Absence of falls Outcome: Partially Met Pain mostly controlled with norco. Pt aware of plan of care to control pain, and to work with PT to ambulate PT discharge plan changed to SNF placement, 5-7 days/wk, 10-30 days at this time. Therapist is recommending SNF placement at this time. Problem: Pain Goal: Manage acute pain Outcome: Partially Met Problem: Actual or potential alteration in health Goal: Knowledge of Interdisciplinary Plan of Care Outcome: Partially Met Problem: Falls, Risk of Goal: Absence of falls Outcome: Partially Met Pain mostly controlled with norco. Pt aware of plan of care to work with PT and improve activity levels. Pt has had no falls on this shift. Problem: Pain Goal: Manage acute pain Outcome: Partially Met Goal: Manage chronic pain Outcome: Partially Met Goal: Reduced pain sensation Outcome: Partially Met Goal: Achievement of comfort function goal Outcome: Partially Met Problem: Actual or potential alteration in health Goal: Absence of healthcare acquired conditions Outcome: Partially Met Goal: Knowledge of Interdisciplinary Plan of Care Outcome: Partially Met Goal: Knowledge of Enviroment Outcome: Partially Met Problem: Pressure Ulcer - Risk of Goal: Absence of pressure ulcer Outcome: Partially Met Problem: Falls, Risk of Goal: Absence of falls Outcome: Partially Met Problem: Pain Goal: Manage acute pain Outcome: Partially Met Goal: Manage chronic pain Outcome: Partially Met Goal: Reduced pain sensation Outcome: Partially Met Goal: Achievement of comfort function goal Outcome: Partially Met Problem: Actual or potential alteration in health Goal: Absence of healthcare acquired conditions Outcome: Partially Met Goal: Knowledge of Interdisciplinary Plan of Care Outcome: Partially Met Goal: Knowledge of Enviroment Outcome: Partially Met Problem: Pressure Ulcer - Risk of Goal: Absence of pressure ulcer Outcome: Partially Met Problem: Falls, Risk of Goal: Absence of falls Outcome: Partially Met Problem: Pain Goal: Manage acute pain Outcome: Partially Met Goal: Manage chronic pain Outcome: Partially Met Goal: Reduced pain sensation Outcome: Partially Met Goal: Achievement of comfort function goal Outcome: Partially Met Problem: Actual or potential alteration in health Goal: Absence of healthcare acquired conditions Outcome: Partially Met Goal: Knowledge of Interdisciplinary Plan of Care Outcome: Partially Met Goal: Knowledge of Enviroment Outcome: Partially Met Problem: Pressure Ulcer - Risk of Goal: Absence of pressure ulcer Outcome: Partially Met Problem: Pain Goal: Manage acute pain Outcome: Partially Met Goal: Manage chronic pain Outcome: Partially Met Goal: Reduced pain sensation Outcome: Partially Met Goal: Achievement of comfort function goal Outcome: Partially Met Problem: Actual or potential alteration in health Goal: Absence of healthcare acquired conditions Outcome: Partially Met Goal: Knowledge of Interdisciplinary Plan of Care Outcome: Partially Met Goal: Knowledge of Enviroment Outcome: Partially Met Problem: Pressure Ulcer - Risk of Goal: Absence of pressure ulcer Outcome: Partially Met Problem: Falls, Risk of Goal: Absence of falls Outcome: Partially Met PHYSICAL THERAPY VISIT VARIANCE NOTE Attempted to see patient at this time, but unable secondary to: Pt on Bedrest per MD orders 10/26/20. Awaiting Medical Clearance (comment). PT Will follow up as appropriate. OCCUPATIONAL THERAPY VISIT VARIANCE NOTE Attempted to see patient at this time, but unable secondary to: Awaiting Medical Clearance (comment). Patient on bedrest per MD on 10/26/2020. Will follow up as appropriate. Problem: Pain Goal: Manage acute pain Outcome: Partially Met Goal: Manage chronic pain Outcome: Partially Met Goal: Reduced pain sensation Outcome: Partially Met Goal: Achievement of comfort function goal Outcome: Partially Met Problem: Actual or potential alteration in health Goal: Absence of healthcare acquired conditions Outcome: Partially Met Goal: Knowledge of Interdisciplinary Plan of Care Outcome: Partially Met Goal: Knowledge of Enviroment Outcome: Partially Met Problem: Pressure Ulcer - Risk of Goal: Absence of pressure ulcer Outcome: Partially Met Problem: Falls, Risk of Goal: Absence of falls Outcome: Partially Met PHYSICAL THERAPY VISIT VARIANCE NOTE Attempted to see patient at this time, but unable secondary to: Patient Unavailable (comment). Pt remains in OR. Will follow up as appropriate. Brief Post Operative Note Patient Name: Dulce Peñaloza : 1950 (70 y.o.) Date of Service: 10/25/2020 CSN: [id number] Procedure(s): Bilateral transforaminal lumbar interbody fusion and posterior lateral fusion lumba4-5, pedicle fixation, interbody device, local bone graft, with Ziehm CT navigation Decompression lumbar2-3 and lumbar3-4 INST - NAVIGATIONAL SPINE Pre-Operative Diagnoses: * Neurogenic claudication due to lumbar spinal stenosis [M48.062] Post-Operative Diagnoses: * Neurogenic claudication due to lumbar spinal stenosis [M48.062] Surgeon(s) and Role: * Cherise Prieto MD - Primary * Alyssa Carcamo PA-C - Assisting WOOD BOATBUILDER APPRENTICE: Trip Olsen CRNA; Jamir Munoz CRNA; Pierre James CRNA Director Of Social Work: Richa Maciel RN; Danyelle Zaman RN Director Drug: Zoë Villalobos, TECHNOLOGIST Scrub Person Relief: Darron Lea RN Scrub Person: [facility] Operative findings: Incidental durotomy around the region of the scarred right L5 nerve root just cranial to the medial corner of the right L5 pedicle and an area of recurrent stenosis and dense scar. Successfully closed with a stitch and sealed with dural sealant with out further CSF leakage evident. Intra and immediate post-operative complications: none Type of anesthesia used: General Estimated blood loss: 400 mL Estimated urine output: 400 mL Specimen(s): ID Type Source Tests Collected by Time Destination A : Lumbar 2-3, 3-4, 4-5 Tissue Intervertebral Disc, Please Specify TISSUE EXAM Cherise Prieto MD 10/25/2020 1133 Implant(s): Implant Name Type Inv. Item Serial No. Network Technology Instructor Lot No. LRB No. Used Action HEMOSTAT 8 X 6.25CM X 10MM SURGIFOAM GELATIN SPONGE - [id number] HEMOSTAT 8 X 6.25CM X 10MM SURGIFOAM GELATIN SPONGE ETHICON [id number] N/A 1 Implanted SEALANT 5ML HEMOSTATIC MATRIX FAST PREP FLOSEAL - [id number] SEALANT 5ML HEMOSTATIC MATRIX FAST PREP FLOSEAL ZAPATA BIO [id number] N/A 1 Implanted BONE INFUSE BONE GRAFT XSM - [id number] Bone BONE INFUSE BONE GRAFT XSM SOFAMOR DA [id number] N/A 1 Implanted SPACER 26 X 10 CAPSTONE SPINAL SYSTEM - [id number] SPACER 26 X 10 CAPSTONE SPINAL SYSTEM MEDTRO SPI [id number] N/A 1 Implanted SEALANT 5ML DURAL DURASEAL SYSTEM - [id number] SEALANT 5ML DURAL DURASEAL SYSTEM INTEGRA LI [id number] N/A 1 Implanted SPACER 26 X 10 CAPSTONE SPINAL SYSTEM - [id number] SPACER 26 X 10 CAPSTONE SPINAL SYSTEM MEDTRO SPI [id number] N/A 1 Implanted 6.5x50 mm screw MEDTRONIC N/A 2 Implanted 6.5x55 mm screw MEDTRONIC N/A 2 Implanted Set Screws MEDTRONIC N/A 4 Implanted CHASE 5.5 X 40MM PRE-BENT CHROMALOY HORIZON SOLERA - [id number] CHASE 5.5 X 40MM PRE-BENT CHROMALOY HORIZON SOLERA MEDTRO SPI N/A 2 Implanted Drain(s): Closed/Suction Drain 1 Left;Posterior Back 10 Fr. (Active) Urethral Catheter Double-lumen;Non-latex 16 Fr. (Active) Wound(s): Wound 10/25/20 Surgical Wound Back (Active) Cherise Prieto MD 10/25/2020 3:11 PM Dulce Peñaloza [id number] 10/25/20 OPERATIVE REPORT SURGEON CHERISE PRIETO MD Tanker Truck Driver ALEXANDRA Lepe Dulce Peñaloza is a 70 y.o. female who has had a history of intractable low back and lower extremity radicular pain. This has been refractory to conservative care. This fits a physiologic lower lumbar disk distribution. She has radicular pain with attempted standing and walking She is status post a previous L4-5 and L5-S1 decompression laminectomy. Her lumbar MRI shows the presence of recurrent stenosis at L4-5 with right lateral recess stenosis and bilateral foraminal stenosis at that level. In addition she shows stenosis at L2-3 and L3-4. PREOPERATIVE DIAGNOSIS Lumbar Spinal Stenosis L2-3, L3-4, right lateral recess recurrent stenosis at L4-5 with bilateral L4-5 foraminal stenosis POSTOPERATIVE DIAGNOSIS Lumbar Spinal Stenosis L2-3, L3-4, right lateral recess recurrent stenosis at L4-5 with bilateral L4-5 foraminal stenosis OPERATIVE PROCEDURE 1. Bilateral trans-foraminal interbody fusion at L4 5. 2. Pedicle screw and chase stabilization, L4-5 using Solera from Medtronic (5.5 rods, 6.5 screws) 3. Placement of interbody device at L 4 5 (Capstone from Medtronic) 4. Decompression laminectomy with medial facetectomy L2-3 and L3-4, and revision decompression and bilateral foraminotomies at L4-[address] based navigation for screw placement. 6. Local bone graft from products of laminectomy 7. Repair of incidental durotomy right L4-5 ANESTHESIA General. CONSENT After explanation of the elective nature of the procedure, after discussion of the full range of risks and potential complications related to this surgery, after discussion of the limited success probabilities related to the surgery, after discussion of the nature of the procedure to be performed and after all questions were answered, the patient requests that we proceed with surgery in an effort to relieve her intractable activity-limiting pain. DESCRIPTION OF PROCEDURE After induction of satisfactory general anesthesia and placement of SCD boots, the patient was positioned prone on the Blake table with head, neck, upper and lower extremities padded and positioned to avoid any joint pain or neural compression syndromes. Her lumbar spine was prepped and draped in the usual manner. We made a midline skin incision extending from L2 down to L5, carried through skin and subcutaneous tissue with bleeders coagulated as encountered. Prior to incision we placed a spinal needle to confirm our level. We used her prior incision with an extension cranially approximately 3 cm to access the L2-3 and L3-4 decompression levels. Electrocautery was used to deepen the incision through the subcutaneous tissue down to the tips of the spinous processes from L2-4. We deepened the incision in the midline through the scar and fascia in line with the level of the lamina and carried this out over the facet joints of L3-4 and L4-5 and extended this caudally down to the L5-S1 facet joint level. Electrocautery and Arizmendi elevator were used to elevate paraspinal muscle from the tip and lateral aspect of the spinous process, and out over the posterior aspect of the lamina bilaterally. Intervening paraspinal muscle was detached with electrocautery and swept laterally out over the facet joints. Self-retaining retractors were put into position providing satisfactory exposure. We then clamped the tracker unit to the spinous process of L to and performed registration by performance of a spin maneuver after draping. We identified our desired screw points, used to the navigation system to determine the lengths, created an initial drill point with a bur and then probed these with the gear shift, tapped with a tap, palpated with a pedicle feeler and reconfirmed with the gear shift that we were in the correct location, and then placed our screws. This was performed bilaterally at L 4 and 5 without any difficulty. We then turned our attention to performing the decompression. We began by exposing the facet joint area between the L4 and 5 screws. We used navigation to determine the width of the canal. We resected the facet joint between the pedicle screws using the Misonix. We also resected the lateral part of the inferior lamina of L4 where this encroached into the canal. We thinned this with the bur and used angled curette to create a plane between the scarred dura and the encroaching bone. This performed uneventfully allowed access to the disc spaces. Bleeding was controlled with bipolar electrocautery over the posterior annulus and area where we remove the superior facet. The exiting L4 nerve roots were visualized and protected throughout the procedure. We resected the right inferior facet of L4 with this intruded into the canal compressing the traversing L5 root and an anterior posterior dimension. As we resected this we did encounter a small amount of CSF leakage with separation of the dura vertically. CSF leakage was stopped with a single 6-0 Nurolon suture. We resected the annulus bilaterally within the region of the foramen between the exiting root and thecal sac. The disc space was cleaned out thoroughly using a combination of griselda ring curette pituitary and Kerrison rongeurs. With light distraction were able to place at 10 mm trial and so we used a 10 x 22 interbody device bilaterally. We had previously reconstituted an extra small infuse kit and we started on the right side, placed half of the kit within the right interbody device and placed the interbody device tamped into the anterior part of the disc space confirming our depth using navigation. We then turned our attention to performing the decompressions at L2-3 and L3-4 and used this bone for our interbody fusion between the interbody devices. We remove the inferior part of the spinous processes of L2 and 3 and created circumferential cuts in the area of decompression desired performing this in a slightly undercutting manner to minimize the amount of facet resection. We began at the L2-3 level and undercut the inferior lamina of L2 using the Misonix and bur and then were able to break this segment of L2 lamina free and this was lifted up and out of the wound. At the L3 level we created vertical cuts extending from the L2-3 to the L4 interspace at the width of the canal. We identified that the canal was stenotic even at the pedicle level and so we did completed the decompression from level to level. The cuts were created initially with a Misonix deepened with the bur and completed with the Misonix. We able to lift this L3 segment up and out of the wound carefully the dural sac from the undersurface of the lamina with angled curette. We then resected the cranial and lateral aspect of the L4 lamina where this is contributing to stenosis related to intruding superior facet corners into the canal. This was also resected with Misonix and Kerrisons. We cleaned up the residual edges with Kerrison rongeurs fully decompressing this interspace. This technique provided abundant bone that was used for fusion. The bone was denuded of soft tissue and run through the bone mill for fine graft. We then placed bone graft between the location of the interbody devices packing this from the left against the right device. We then placed the left interbody device with the remaining infuse sponge. This was tamped into the anterior part of the disc space and then we filled the posterior part of the disc space with additional bone graft. We then placed our rods which were rigidly tightened into the screw of L for, and then we compressed lightly against the L 5 level on the right side to improve our lordosis. All set screws were tightened to torque. Over the area of the location of the incidental durotomy we used dural sealant. The wound was copiously irrigated with gentamicin solution. We rubbed vancomycin powder in the paraspinal beds, and used a small amount of Floseal over the laminotomy defect and left TLIF exposure defect. A drain was placed deep to the fascia, exiting through a separate stab wound just prior to completion of fascial closure. We closed the deep fascia with running #1 PDS. We closed the deep subcutaneous with interrupted 0 Vicryl suture and the skin was closed with a running 4-0 Monocryl subcuticular stitch and Steri-Strips. Wound was dressed, patient awakened and transported to the PACU in satisfactory condition. Sponge and needle counts were correct. There were no complications. She tolerated the procedure well. There was approximately 400 mL of blood loss. Specimen was L4-5 disc material CHERISE PRIETO MD documented in this encounter [facility] 10-31-2020 Hospital Discharge instructions Bela Urbina - 10/31/2020 10:49 AM EDT Your estimated length of stay at [facility] (aka [facility]) is 11 days. documented in this encounter [facility] 10-31-2020 Hospital course Narrative Images from the original note were not included. DISCHARGE SUMMARY Patient: Dulce Peñaloza Account: [id number] Admitted: 10/25/2020 Discharge Date/Time: 11/01/2020 1:10 PM Clinical Summary Admission Diagnosis: Problem S/P Lumbar Fusion Discharge Diagnoses and Associated Hospital Course: Problem S/P Lumbar Fusion Patient Name: Dulce Peñaloza Admit Date: [id number] MR #: [id number] : 1950 Physicians: Jl Whatley MD (Family) 7 Day Post-Op Post op pain: controlled with po pain meds, she is now using 1-2 tab of [place] and 5mg flexeril. She has an increase in back pain with attempted ambulation. Surgical site neurologic potential complications: denies new lower extremity pain, weakness or numbness General symptoms: denies chest pain, shortness of breath, nausea or vomiting. She reports she is now passing gas. No has moved her bowels and is tolerating a regular diet. She denies headache, dizziness, or vision changes. Medications: Current Facility-Administered Medications: aliskiren (TEKTURNA) tablet 150 mg, 150 mg, Oral, BID, Sivakumar Whatley CNP, 150 mg at 10/31/20 1700 aluminum-magnesium hydroxide-simethicone (MAALOX PLUS) 200-200-20 mg/5 mL suspension 30 mL, 30 mL, Oral, Q4H PRN, Sivakumar Whatley CNP bisacodyL (DULCOLAX) suppository 10 mg, 10 mg, Rectal, Daily PRN, Sivakumar Whatley CNP cyclobenzaprine (FLEXERIL) tablet 5 mg, 5 mg, Oral, Q8H PRN, Sivakumar Whatley CNP, 5 mg at 11/01/20 0225 HYDROcodone-acetaminophen (NORCO) 5-325 mg per tablet 1-2 tablet, 1-2 tablet, Oral, Q4H PRN, Sivakumar Whatley CNP, 2 tablet at 11/01/20 0123 loratadine (CLARITIN) tablet 10 mg, 10 mg, Oral, Daily, Sivakumar Whatley CNP, 10 mg at 10/31/20 0838 magnesium hydroxide (MOM) 400 mg/5 mL suspension 2,400 mg, 30 mL, Oral, Daily PRN, Sivakumar Whatley CNP metoprolol succinate (TOPROL-XL) 24 hr tablet 25 mg, 25 mg, Oral, Daily, Sivakumar Whatley CNP, 25 mg at 10/31/20 0900 metoprolol succinate (TOPROL-XL) 24 hr tablet 50 mg, 50 mg, Oral, Nightly, Cherise Prieto MD, 50 mg at 10/31/202034 naloxone (NARCAN) injection 0.1 mg, 0.1 mg, Intravenous, PRN AND Notify physician, , , Until Discontinued AND naloxone (NARCAN) injection 0.4 mg, 0.4 mg, Intravenous, PRN, Sivakumar Whatley CNP ondansetron (ZOFRAN-ODT) disintegrating tablet 4 mg, 4 mg, Oral, Q6H PRN OR ondansetron (ZOFRAN) injection 4 mg, 4 mg, Intravenous, Q6H PRN, Sivakumar Whatley CNP pantoprazole (PROTONIX) EC tablet 40 mg, 40 mg, Oral, Daily, Sivakumar Whatley CNP, 40 mg at 10/31/20 0838 polyethylene glycol (MIRALAX) powder 17 g, 17 g, Oral, Daily, Cherise Prieto MD, 17 g at 10/31/20 0838 senna-docusate (SENNA-S) 8.6-50 mg per tablet 1 tablet, 1 tablet, Oral, BID, Sivakumar Whatley CNP, 1 tablet at 10/31/202035 Saline lock IV, , , Continuous AND sodium chloride (PF) (NS) flush 5 mL, 5 mL, Intravenous, PRN, 5 mL at 10/31/202035 AND sodium chloride (PF) (NS) flush 5 mL, 5 mL, Intravenous, Q8H BETSY, 5 mL at 10/31/20 1400 AND sodium chloride 0.9% (NS), 0-150 mL/hr, Intravenous, PRN, Sivakumar Whatley CNP sodium chloride 0.9% (NS), 100 mL/hr, Intravenous, Continuous, Sivakumar Whatley CNP, Stopped at 10/26/20 0313 triamterene-hydrochlorothiazide (MAXZIDE-25) 37.5-25 mg per tablet 0.5 tablet, 0.5 tablet, Oral, Once per day on Thu, Sivakumar Whatley CNP, 0.5 tablet at 10/31/20 0900 Physical Examination: Vital Signs: BP 105/62 (BP Location: Right arm, Patient Position: Lying) Pulse 62 Temp 97.6 F (36.4 C) (Oral) Resp 16 Ht 5' 6 Wt 120.9 kg (266 lb 8.6 oz) SpO2 93% BMI 43.02 kg/m I/O last 3 completed shifts: In: 1025 [P.O.:1020; I.V.:5] Out: 900 [Urine:900] No intake/output data recorded. Patient Appears in no acute distress. She log rolls in the bed with minimal assistance Patient alert oriented and cooperative. Lower extremity motor is strong and symmetric. Wound clean, dry and intact, no drainage Lab: Lab Results Component Value Date WBC 7.94 10/27/2020 HGB 11.4 (L) 10/27/2020 HCT 35.6 (L) 10/27/2020 MCV 93.4 10/27/2020 PLT 157 10/27/2020 Lab Results Component Value Date GLUCOSE 90 10/27/2020 CALCIUM 7.9 (L) 10/27/2020 NA 136 10/27/2020 K 4.1 10/27/2020 CL 106 10/27/2020 BUN 17 10/27/2020 CREATININE 0.90 10/27/2020 IMAGING: X-rays of the lumbar spine 10/29/[address] Prieto. Stable imagines. Her alignment appears satisfactory with hardware in appropriate position. No evidence of complication. The report: IMPRESSION: Postoperative changes of posterior decompression laminectomy. There are postoperative changes of interbody fusion L4-5 without radiographic signs of hardware complications. Assessment: Generally satisfactory post operative course. Slow progress with ambulation Plan : Continue PT Monitor wound. Monitor VS's, including O2 sat. She will likely benefit from ECF placement for continued rehab Ok to discharge once those arrangements are made, discharge orders placed Dressing changes once daily Activity restrictions reinforced Continue to taper pain medication Bowel regimen Procedures 10/25/2020: Procedure(s): Bilateral transforaminal lumbar interbody fusion and posterior lateral fusion lumba4-5, pedicle fixation, interbody device, local bone graft, with Zim CT navigation Decompression lumbar2-3 and lumbar3-4 INST - NAVIGATIONAL SPINE Allergies Dexlansoprazole, Losartan potassium, Oxycodone [id number]-[id number]-[id number], Promethazine hcl, Adhesive tape-silicones, Amitriptyline hcl, Anastrozole, Atenolol, Brompheniramine-phenylephrine, Caffeine, Calcium, Chymotrypsin, Clonidine, Codeine, Doxycycline calcium, Esterified estrogens, Exemestane, Fexofenadine, Fluticasone, Morphine, Norethindrone-e.estradiol-iron, Penicillins, Perphenazine, Prednisone, Sodium saccharin, Tamoxifen, Triprolidine-pseudoephedrine, Vitamin, Ct: iodinated contrast- oral and iv dye, Hydroxyzine, and Latex Discharge Diet: Diet Regular; Regular Discharge Medications Medication List START taking these medications cyclobenzaprine 5 MG tablet Commonly known as: FLEXERIL Take 1 (one) tablet (5 mg total) by mouth every 8 (eight) hours as needed for muscle spasms . HYDROcodone-acetaminophen 5-325 mg per tablet Commonly known as: NORCO Take 1 (one) tablet by mouth every 4 (four) hours as needed (Days supply per fill: 7) . CHANGE how you take these medications senna 8.6 mg tablet Commonly known as: SENOKOT Take 1 (one) tablet (8.6 mg total) by mouth 2 (two) times a day . What changed: when to take this CONTINUE taking these medications aliskiren 150 MG tablet Commonly known as: TEKTURNA loratadine 10 mg tablet Commonly known as: CLARITIN NONFORMULARY NONFORMULARY omeprazole 40 MG capsule Commonly known as: PRILOSEC * metoprolol succinate 50 MG 24 hr tablet Commonly known as: TOPROL-XL * Toprol XL 25 MG 24 hr tablet Generic drug: metoprolol succinate triamterene-hydrochlorothiazide 37.5-25 mg per tablet Commonly known as: MAXZIDE-25 Vitamin D3 25 mcg (1,000 unit) capsule Generic drug: cholecalciferol (vitamin D3) Voltaren 1 % Gel Generic drug: diclofenac sodium zinc 50 mg Tab * This list has 2 medication(s) that are the same as other medications prescribed for you. Read the directions carefully, and ask your doctor or other care provider to review them with you. Where to Get Your Medications You can get these medications from any pharmacy Bring a paper prescription for each of these medications cyclobenzaprine 5 MG tablet HYDROcodone-acetaminophen 5-325 mg per tablet senna 8.6 mg tablet Physician(s) Family: Jl Whatley MD, , Address: [address] [place] [address] Follow Up: Jl Whatley MD [address] [facility] [address] Follow up Cherise Prieto MD [address] [place] [address] Follow up as scheduled 11/07/20 [facility] [place] Address: [address], [place] [address] Servicing Counties: [place] [phone] Patient instructions, including activity, were given to the patient/family at discharge. Please see the After Visit Summary in the medical record for details. Completed by: Sivakumar Whatley on 11/01/20, 7:20 AM documented in this encounter [facility] 10-29-2020 Consult note Associated Order(s): IP CONSULT TO CARE MANAGEMENT COMPLEX DISCHARGE Date: 10/29/2020 Time: 3:58 PM Patient Name: Dulce Peñaloza Date of : 1950 Sex: Female Living Arrangements: Spouse/significant other Caregiver Identified: No Support Systems: Spouse/significant other Assistance Needed: no Type of Residence: Private residence Prior to Admission Home Care Services: No Patient expects to be discharged to:: TBD Does the patient need discharge transport arranged?: No Current Home Equipment: Walker Patient and requested that I speak with them in regards to potential placement. Patient's reported that when speak with he reported that patient may benefit from rehab placement. This SW discussed with patient therapy recommendations. Reported that they are recommending 2-3 days a week worth of therapy, but AMPAC is 15. Explained pre-cert process for placement. Provided list of facilities to patient and to decide on. SW will follow-up. Pt's reported they call insurance and were told non-emergent and emergent transport are covered and they would owe 4%. Asked if transport to SNF would be covered. Reported that I can't answer this and insurance would be who would know these benefits. Occupational Therapy OCCUPATIONAL THERAPY EVALUATION AND TREATMENT NOTE OCCUPATIONAL THERAPY EVALUATION Skilled Therapy Needs After Discharge Anticipate Resolution of Current Assessment Limitations Including: Mechanical Barriers, Social Support, Pain Are Skilled Therapy Services Needed After Discharge: Yes DME Recommendation: Adaptive equipment kit DME Rationale: Patient's condition creates an increased risk of safety hazard without recommended equipment, Patient's condition prevents him/her from accomplishing ADL without recommended equipment Rehab Potential: Good Outcomes Measures Prior Function Daily Activity Raw Score: 24 Prior Function Daily Activity % Impaired: 0% AM-PAC Daily Activity Raw Score: 16 AM-PAC Daily Activity % Impaired: 53.32% Occupational Therapy Assessment The patient's current functional participation deficits are grooming, UE dressing, LE dressing, bathing, toileting, home management, meal preparation, hobbies, functional mobility, driving. This reduced independence will limit their life roles of premorbid level individual, spouse. The patient's co morbidities do affect patient performance in the above activities and roles. The performance deficits are a result of musculoskeletal impairment(s) in trunk, generalized debility, spine including strength, range of motion, balance, coordination, acitvity tolerance, pain, respiratory capacity, problem solving, and pain intolerance. 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 The patient's awareness of own capacity and performance is a logging equipment operator, compliance is a logging equipment operator, education level is a logging equipment operator to return to prior level of function. During the assessment, minimal to moderate modification of task was required and several treatment options were identified in the plan of care. This consultation required expanded review of the medical and therapy history. Activity Tolerance Activity Tolerance: Tolerates 10 - 20 min activity with multiple rests Therapy Precautions Orthotic Devices: No Weight Bearing Status: WFL General Rehab Precautions: Fall risk, Back Cognition Overall Cognitive Status: Within Functional Limits Arousal/Alertness: Appropriate responses to stimuli Orientation Level: Oriented X4 Executive functioning: WFL Safety Judgment: Good awareness of safety precautions Problem Solving: Assistance required to generate solutions, Assistance required to implement solutions Attention: Attends to quiet environment Hearing Status: WFL Social Interaction: Cooperative ADL Grooming: Set-up (sitting in bedside chair) UE Dressing: Minimal assist LE Dressing: Maximal assist IADL Bed Mobility Rolling: Moderate assist Supine to Sit: Moderate assist Bond Manager: bedrails Functional Transfers Sit to Stand: Minimal assist, 2 person assist Bond Manager: rollator Home Living Obtained Home Living and PLOF info from: Patient Lives With: Spouse Type of Home: House Home Layout: One level Steps to enter home: Yes Rails to enter home: None Number of stairs to enter home: 1 Bathroom Shower/Tub: Tub/shower unit Bathroom Toilet: Raised Bathroom Equipment: Shower chair, Toilet seat contract administration coordinator Bathroom Accessibility: Accessible Mobility Equipment: Rollator ADL Equipment: Sock aid Additional Objective Details - Home Living: Pt reports rollator use for baseline ambulation Prior Level of Function Receives Help From: Spouse Level of [place] - Transfers/Ambulation/Mobility: Needs mobility assistance/device Level of [place] - ADLs: Independent Level of [place] - Homemaking: Independent Driving: Patient drives Vocational: Retired Leisure: drawing, photography, writing OCCUPATIONAL THERAPY TREATMENT NOTE Total Treatment Time (Total Session Time): 38 Minutes Timed Code Treatment Minutes: 24 Minutes Self-Care / ADL Grooming - Skilled Intervention Provided: facilitation Grooming - For: (engagement in ADLs/functional activities) Grooming - Resulting In: improved activity tolerance, improved participation in ADL task UE Dressing - Skilled Intervention Provided: facilitation, patient education UE Dressing - For: (engagement in ADLs/functional activity) UE Dressing - Resulting In: improved activity tolerance, improved participation in ADL task LE Dressing - Skilled Intervention Provided: facilitation, patient education LE Dressing - For: LE management, necessary precautions LE Dressing - Resulting In: improved activity tolerance, improved ability to understand / adhere to precautions, improved participation in ADL task Therapeutic Activities Bed Mobility Skilled Intervention Provided: facilitation, verbal cues, patient education For: LE management, UE positioning, logroll technique, safe use of bedrails and/or equipment, sequencing of movement Resulting In: improved activity tolerance, improved performance Additional Treatment Details Education provided to patient regarding back precautions specifically with engagement in UB/LB dressing and A/E use for adherence. Patient verbalizes understanding Patient reports no increased pain upon end of evaluation, left with all immediate needs met, and call light within reach. White board was updated and RN was notified of patient's mobility status. Patient assessed as a level 3 fall risk. Patient resting in bedside chair with alarm in place, call light within reach and essential needs met at end of session. I utilized the following PPE throughout this therapy session: Gloves, Surgical mask and Safety glasses A [employer] Superintendent not present during therapy session. Past Medical History: Diagnosis Date Back pain Cancer (HCC) 2010 lt. breast cancer stage I Complication of anesthesia very hard to awaken Headache occas. History of blood transfusion History of stress test Hyperlipidemia Hypertension Sleep apnea Sleep apnea, obstructive unable to tolerate cpap Past Surgical History: Procedure Laterality Date ARTHROSCOPIC SHOULDER TOTAL JOINT Left BACK SURGERY x3 BREAST SURGERY CARPAL TUNNEL RELEASE Bilateral CHOLECYSTECTOMY FOOT SURGERY Left HERNIA REPAIR umbilical HYSTERECTOMY (CERVIX REMOVED) knee scope Left LUMPECTOMY SHOULDER OPEN ROTATOR CUFF REPAIR Right TRIGGER FINGER RELEASE Bilateral For complete objective data, detailed plan of care and patient education refer to: OT Evaluation flowsheet, OT Evaluation and Treatment flowsheet, OT Treatment flowsheet, patient Plan of Care, Plan of Care progress note, and Patient Education. This note stands as the current Discharge Summary upon patient discharge from the hospital or completion of Occupational Therapy Plan of Care. Physical Therapy PHYSICAL THERAPY EVALUATION Skilled Therapy Needs After Discharge Anticipate Resolution of Current Assessment Limitations Including: Mechanical Barriers, Social Support, Pain Are Skilled Therapy Services Needed After Discharge: Yes Intensity of Skilled Therapy: 2-3 days per week Anticipated Duration of Skilled Therapy: Duration 10 - 30 days DME Recommendation: None Rehab Potential: Good Pt. Reports no increased pain at the end of evaluation, left with all immediate needs met, and call light in reach. White board updated and RN notified of pt's mobility status. The following PPE was utilized during this evaluation: Gloves, surgical mask, safety glasses. Hand hygiene was completed upon entry and exit of the patient's room. No rehab rn was utilized during this evaluation Patient was co-evaluated with OT secondary to patient requiring 2 skilled therapists due to safety concerns, decreased functional mobility, and low activity tolerance. Outcomes Measures Prior Function - Basic Mobility Raw Score: 22 Points Prior Function - Basic Mobility % Impaired: 25.02% AM-PAC Basic Mobility Raw Score: 15 Points AM-PAC Basic Mobility % Impaired: 50.40% Physical Therapy Assessment History: The following factors influence the patient's participation in the PT plan of care: Personal Factors: Body Habitus, Limited Baseline Mobility Environmental Factors: Steps to enter home The following co-morbidities (from this admission or prior) influence the patient's participation in this plan of care: HLD, HTN, CA, s/p back sx Number of History elements affecting this patient's PT plan of care: 3 or more Examination of Body Systems: The patient presents with: Musculoskeletal impairments: ROM, Strength, Pain, Functional Endurance Neurologic Impairments: Balance, Sensation, Pain Cardiopulmonary Impairments: Activity Tolerance Integumentary Impairments: Tissue Healing. These impairments result in limitations of Functional Transfers, Gait, Stair-Climbing, Safety, Safety Awareness, Activity Tolerance. These impairments result in restrictions of Household mobility, Community mobility, Leisure activities. Number of Body Systems elements affecting this patient's PT plan of care: 4 or more. Clinical Presentation: The patient's clinical presentation for this PT evaluation is with unstable and unpredictable characteristics as evidenced by current PT documentation. Activity Tolerance Activity Tolerance: Tolerates 10 - 20 min activity with multiple rests Therapy Precautions Orthotic Devices: No Weight Bearing Status: WFL General Rehab Precautions: Back, Fall risk (Drain) Balance Assessment Sitting Balance - Static: Contact guard assist, with bilateral UE support, with back unsupported Sitting Balance - Dynamic: Contact guard assist, with bilateral UE support, with back unsupported Standing Balance - Static: Minimal assist, 2 person, with device, with bilateral UE support, Contact guard assist Bond Manager - Standing Static: rollator Standing Balance - Dynamic: Contact guard assist, with bilateral UE support, with device, 2 person, Minimal assist Bond Manager - Standing Dynamic: rollator Bed Mobility Supine to Sit: Moderate assist, Dependent Sit to Supine: (Pt seated in chair following evaluation, OT assisting pt) Bond Manager: bedrails Transfers Sit to Stand: Minimal assist, 2 person assist Bond Manager: rollator, other (comment) (Gait belt) Gait/Locomotion Gait Assistance: Contact guard assist Assistive Device: rollator Distance: 5 Feet Pattern: step to, R decreased step length, L decreased step length, antalgic, over reliance on upper extremities, forward flexed Environment/Terrain: closed environment, minimal to no distractions Additional Assessment Details Educated patient on BLT precautions with pt verbalizing understanding. Pt to benefit from further education. Home Living Obtained Home Living and PLOF info from: Patient Lives With: Spouse Type of Home: House Home Layout: One level Steps to enter home: Yes Rails to enter home: None Number of stairs to enter home: 1 Bathroom Shower/Tub: Tub/shower unit Bathroom Toilet: Raised Bathroom Equipment: Shower chair, Toilet seat contract administration coordinator Bathroom Accessibility: Accessible Mobility Equipment: Rollator ADL Equipment: Sock aid Additional Objective Details - Home Living: Pt reports rollator use for baseline ambulation Prior Level of Function Receives Help From: Spouse Level of [place] - Transfers/Ambulation/Mobility: Needs mobility assistance/device Level of [place] - ADLs: Independent Level of [place] - Homemaking: Independent Driving: Patient drives Vocational: Retired Leisure: drawing, photography, writing Past Medical History: Diagnosis Date Back pain Cancer (HCC) 2010 lt. breast cancer stage I Complication of anesthesia very hard to awaken Headache occas. History of blood transfusion History of stress test Hyperlipidemia Hypertension Sleep apnea Sleep apnea, obstructive unable to tolerate cpap Past Surgical History: Procedure Laterality Date ARTHROSCOPIC SHOULDER TOTAL JOINT Left BACK SURGERY x3 BREAST SURGERY CARPAL TUNNEL RELEASE Bilateral CHOLECYSTECTOMY FOOT SURGERY Left HERNIA REPAIR umbilical HYSTERECTOMY (CERVIX REMOVED) knee scope Left LUMPECTOMY SHOULDER OPEN ROTATOR CUFF REPAIR Right TRIGGER FINGER RELEASE Bilateral For complete objective data, detailed plan of care and patient education refer to: PT Evaluation flowsheet, PT Evaluation and Treatment flowsheet, PT Treatment flowsheet, patient Plan of Care, Plan of Care progress note, and Patient Education. This note stands as the current Discharge Summary upon patient discharge from the hospital or completion of Physical Therapy Plan. Associated Order(s): IP CONSULT TO CARE MANAGEMENT DISCHARGE PLAN PROGRESS NOTE Date: 10/26/2020 Time: 1:08 PM Patient Name: Dulce Peñaloza Date of : 1950 Sex: Female Anticipated Discharge Plan Anticipated HME: Undetermined Anticipated Home Care Needs: Undetermined Met w/ pt and Pt remains on bedrest Pt/spouse inquired ab ambulance transport home - they spoke w/ insurance and was informe d it was covered - tho they would owe 4%. explained criteria , availability of squad and th e medical necessity ,or lack of . Encouraged them to Talk w/ therapy and work on endurance for the ride home - once activity is increased Answered questions ab SNF - Explained therapy will work w/ pt to prepare pt to Safely return home If SNF indicated - so cwk will help facilitate the placement Will continue to follow documented in this encounter [facility] 10-25-2020 History and physical note INTERVAL HISTORY AND PHYSICAL Patient Name: Dulce Peñaloza Admit Date: [id number] MR #: [id number] : 1950 Physicians: Jl Whatley MD (Family); No ref. provider found (Referring) The H&P has been reviewed and the patient has been examined. Patient was medically cleared by Dr Whatley on 09/28/2020, see chart for full documentation. I concur with the findings of the H&P. There are no significant changes. It is appropriate to proceed with the planned procedure. COVID-19 testing completed withinin 96 hours. SARS-Cov-2 RNA not detected. While we take appropriate precautions consistent with prevailing medical standards, any contact with any person in any setting at this time presents a risk of transmission and contraction of COVID-19. Gilson Zacarias, JENN 10/25/2020 0720 documented in this encounter [facility] 09-10-2020 History of Present illness Narrative Dulce Peñaloza 1950 Impression/Plan: Problem List Items Addressed This Visit Other Lumbar spinal stenosis L2-3, L3-4, with L4-5 foraminal stenosis - Primary Management options were discussed. Non-operative alternatives were reviewed and discussed. The nature of surgical options available were described. The elective nature of the procedures, the full range of risks and potential complications, and the limited success probabilities with surgery were discussed, and all questions were answered. Despite these factors, she requests that we proceed with surgery. We will plan to proceed with decompression at L2-3 and L3-4 with bilateral transforaminal interbody fusion at L4-5, with pedicle fixation, interbody devices, local bone graft and using CT navigation using 3D C arm. Return after surgery. Clinical Findings: Dulce Peñaloza is a 69 y.o. female person who is here for Follow-up (The patient is here to discuss CT results.) She notes a history of recurrent low back and lower extremity radicular pain problems. She reports she is status post 3 previous lumbar decompression surgeries. She has a history of low back injury after a gymnastics accident when she was 17 years old. Subsequently she had 3 lumbar decompression surgeries later in life. She reports she does not have any hardware in her low back and does not believe she had any sort of fusion procedures. She reports most recently having worsening symptoms over the last year. Her pain is across the low lumbar region as well is midline on the spine. She describes the low back pain as a squeezing sensation . The low back pain then radiates in a physiologic distribution into her buttock and down the posterior aspects of her thighs and calves to her feet. She notes an associated cramping in her posterior thighs as well. She reports some chronic numbness in the left thigh since her previous surgeries although this seems to have been worsening over the last year. She notes complete numbness on the left from the hip to the knee. She notes a new sense of weakness in her lower extremities where she feels like her legs are going to buckle and give out under her. She has also developed some associated new and worsening urinary incontinence. Assessment - 09/10/20 1424 Pain Assessment Pain Assessment 0-10 0-10 DVPRS 6/10 Pain Location Back Pain Descriptors Sharp Pain Frequency Continuous and Intermittent Pain Onset On-going Date Pain First Started 05/25/20 Past Medical History: Diagnosis Date Back pain Cancer (HCC) Hypertension Sleep apnea Patient Active Problem List Diagnosis Lumbar radicular pain Lumbar spinal stenosis L2-3, L3-4, with L4-5 foraminal stenosis Status post lumbar laminectomy Neurogenic claudication due to lumbar spinal stenosis She has a current medication list which includes the following prescription(s): aliskiren, diclofenac sodium, omeprazole, toprol xl, and triamterene-hydrochlorothiazide. Allergies: Dexlansoprazole, Losartan potassium, Oxycodone [id number]-hik, Promethazine hcl, Adhesive tape-silicones, Amitriptyline hcl, Anastrozole, Atenolol, Brompheniramine-phenylephrine, Caffeine, Calcium, Chymotrypsin, Clonidine, Codeine, Doxycycline calcium, Esterified estrogens, Exemestane, Fexofenadine, Fluticasone, Ibuprofen, Morphine, Norethindrone-e.estradiol-iron, Penicillins, Perphenazine, Prednisone, Sodium saccharin, Tamoxifen, Triprolidine-pseudoephedrine, Vitamin, Ct: iodinated contrast- oral and iv dye, Hydroxyzine, and Latex Past Surgical History: Procedure Laterality Date BACK SURGERY CHOLECYSTECTOMY HERNIA REPAIR HYSTERECTOMY LUMPECTOMY Social Hx: , she reports that she has never smoked. She has never used smokeless tobacco. Patient reports previous alcohol use. Patient reports no history of drug use. Family Hx: family history is not on file. Review of Systems: Her review of systems as documented in her MA note is reviewed. Physical Exam VS: Height: 5' 6 , Weight: 117.9 kg (260 lb) , Body mass index is 41.97 kg/m ., BP: (!) 197/85 Body habitus: obese Alert, oriented x 3 Affect: normal affect Gait/Station: normal gait and stance Head/neck exam reveals no deformity Thoraco-lumbar spine exam reveals no deformity. Head/neck and thoraco-lumbar local findings: Lumbar paraspinal tenderness present bilaterally., Right sciatic notch tenderness present., Left sciatic notch tenderness present. Neck and Thoraco-lumbar Range of Motion and Stability: diffusely decreased lumbar motion in all directions. Pain with ROM: pain with lumbar flexion, pain with lumbar extension. Neck and Thoraco-lumbar muscle mass, tone and strength and skin: appears wnl except:, a well healed midline lumbar scar and adjacent paramidline scar. SLR: negative bilaterally Lower extremity muscle strength: lower extremity motor is strong and symmetric in all groups Reflexes: Patellar reflexes symmetrically intact and Achilles absent bilaterally and Clonus absent Lower Extremity Sensation: normal to light touch Balance and coordination: narrow based gait and normal coordinated casual motor activity Imaging: Independent review of images: CT lumbar spine 09/10/2020: Review of the images shows the presence of advanced cervical DDD with vacuum disc changes at L4-5 greater than L2-3. She shows foraminal narrowing on the right at L4-5 and lateral subluxation of L4 on 5 to the left. The images demonstrate severe stenosis at L2-3 and L3-4 and bilateral foraminal narrowing at L4-5. Lumbar MRI 08/15/2020: Review of the images shows the presence of stenosis at L2-3 and L3-4 that is moderate to severe. In addition we see bilateral foraminal stenosis at L4-5 and some recurrent right-sided lateral recess stenosis at L4-5 just caudal to an area of potential postlaminectomy pars defect at that level. The L5-S1 level shows marked loss of disc space height, but with a satisfactory decompression and without associated foraminal narrowingw of the report reveals similar findings: IMPRESSION: 1. At L2-3, there is severe central spinal canal stenosis. There is [id number] left and mild right neural foraminal stenosis. 2. At L3-4, there is severe central spinal canal stenosis with [id number] left and mild right neural foraminal stenosis. 3. At L4-5, there has been posterior lumbar spinal decompression. While there is no significant central spinal canal stenosis, there is subarticular recess stenosis that appears to compress the descending bilateral L5 nerves greater on the left. There is severe left and moderate right neural foraminal stenosis. 4. At L5-S1, there has been posterior lumbar spinal decompression. Left subarticular recess stenosis may impinge upon the descending left S1 nerves. There is moderate bilateral neural foraminal stenosis. X-rays lumbar spine with flexion-extension views 08/15/2020: Review of the images shows previous laminectomy defect at the L4-5 and L5-S1 interspaces. We see lateral subluxation of L4 on 5 to the left potentially associated with lateral recess compromise and/or foraminal compromise at that level. The AP view suggests a possible pars defect on the left. The report: IMPRESSION: Degenerative changes without acute osseous abnormality. Cherise Prieto MD documented in this encounter [facility] 09-10-2020 History of Present illness Narrative Dulce Peñaloza 1950 Impression/Plan: Problem List Items Addressed This Visit Other Lumbar spinal stenosis L2-3, L3-4, with L4-5 foraminal stenosis - Primary Management options were discussed. Non-operative alternatives were reviewed and discussed. The nature of surgical options available were described. The elective nature of the procedures, the full range of risks and potential complications, and the limited success probabilities with surgery were discussed, and all questions were answered. Despite these factors, she requests that we proceed with surgery. We will plan to proceed with decompression at L2-3 and L3-4 with bilateral transforaminal interbody fusion at L4-5, with pedicle fixation, interbody devices, local bone graft and using CT navigation using 3D C arm. Return after surgery. Clinical Findings: Dulce Peñaloza is a 69 y.o. female person who is here for Follow-up (The patient is here to discuss CT results.) She notes a history of recurrent low back and lower extremity radicular pain problems. She reports she is status post 3 previous lumbar decompression surgeries. She has a history of low back injury after a gymnastics accident when she was 17 years old. Subsequently she had 3 lumbar decompression surgeries later in life. She reports she does not have any hardware in her low back and does not believe she had any sort of fusion procedures. She reports most recently having worsening symptoms over the last year. Her pain is across the low lumbar region as well is midline on the spine. She describes the low back pain as a squeezing sensation . The low back pain then radiates in a physiologic distribution into her buttock and down the posterior aspects of her thighs and calves to her feet. She notes an associated cramping in her posterior thighs as well. She reports some chronic numbness in the left thigh since her previous surgeries although this seems to have been worsening over the last year. She notes complete numbness on the left from the hip to the knee. She notes a new sense of weakness in her lower extremities where she feels like her legs are going to buckle and give out under her. She has also developed some associated new and worsening urinary incontinence. Assessment - 09/10/20 1424 Pain Assessment Pain Assessment 0-10 0-10 DVPRS 6/10 Pain Location Back Pain Descriptors Sharp Pain Frequency Continuous and Intermittent Pain Onset On-going Date Pain First Started 05/25/20 Past Medical History: Diagnosis Date Back pain Cancer (HCC) Hypertension Sleep apnea Patient Active Problem List Diagnosis Lumbar radicular pain Lumbar spinal stenosis L2-3, L3-4, with L4-5 foraminal stenosis Status post lumbar laminectomy Neurogenic claudication due to lumbar spinal stenosis She has a current medication list which includes the following prescription(s): aliskiren, diclofenac sodium, omeprazole, toprol xl, and triamterene-hydrochlorothiazide. Allergies: Dexlansoprazole, Losartan potassium, Oxycodone inq-gpbjpyrvk-toz, Promethazine hcl, Adhesive tape-silicones, Amitriptyline hcl, Anastrozole, Atenolol, Brompheniramine-phenylephrine, Caffeine, Calcium, Chymotrypsin, Clonidine, Codeine, Doxycycline calcium, Esterified estrogens, Exemestane, Fexofenadine, Fluticasone, Ibuprofen, Morphine, Norethindrone-e.estradiol-iron, Penicillins, Perphenazine, Prednisone, Sodium saccharin, Tamoxifen, Triprolidine-pseudoephedrine, Vitamin, Ct: iodinated contrast- oral and iv dye, Hydroxyzine, and Latex Past Surgical History: Procedure Laterality Date BACK SURGERY CHOLECYSTECTOMY HERNIA REPAIR HYSTERECTOMY LUMPECTOMY Social Hx: , she reports that she has never smoked. She has never used smokeless tobacco. Patient reports previous alcohol use. Patient reports no history of drug use. Family Hx: family history is not on file. Review of Systems: Her review of systems as documented in her MA note is reviewed. Physical Exam VS: Height: 5' 6 , Weight: 117.9 kg (260 lb) , Body mass index is 41.97 kg/m ., BP: (!) 197/85 Body habitus: obese Alert, oriented x 3 Affect: normal affect Gait/Station: normal gait and stance Head/neck exam reveals no deformity Thoraco-lumbar spine exam reveals no deformity. Head/neck and thoraco-lumbar local findings: Lumbar paraspinal tenderness present bilaterally., Right sciatic notch tenderness present., Left sciatic notch tenderness present. Neck and Thoraco-lumbar Range of Motion and Stability: diffusely decreased lumbar motion in all directions. Pain with ROM: pain with lumbar flexion, pain with lumbar extension. Neck and Thoraco-lumbar muscle mass, tone and strength and skin: appears wnl except:, a well healed midline lumbar scar and adjacent paramidline scar. SLR: negative bilaterally Lower extremity muscle strength: lower extremity motor is strong and symmetric in all groups Reflexes: Patellar reflexes symmetrically intact and Achilles absent bilaterally and Clonus absent Lower Extremity Sensation: normal to light touch Balance and coordination: narrow based gait and normal coordinated casual motor activity Imaging: Independent review of images: CT lumbar spine 09/10/2020: Review of the images shows the presence of advanced cervical DDD with vacuum disc changes at L4-5 greater than L2-3. She shows foraminal narrowing on the right at L4-5 and lateral subluxation of L4 on 5 to the left. The images demonstrate severe stenosis at L2-3 and L3-4 and bilateral foraminal narrowing at L4-5. Lumbar MRI 08/15/2020: Review of the images shows the presence of stenosis at L2-3 and L3-4 that is moderate to severe. In addition we see bilateral foraminal stenosis at L4-5 and some recurrent right-sided lateral recess stenosis at L4-5 just caudal to an area of potential postlaminectomy pars defect at that level. The L5-S1 level shows marked loss of disc space height, but with a satisfactory decompression and without associated foraminal narrowingw of the report reveals similar findings: IMPRESSION: 1. At L2-3, there is severe central spinal canal stenosis. There is zrgp-rd-sqoodryp left and mild right neural foraminal stenosis. 2. At L3-4, there is severe central spinal canal stenosis with nrby-[id number] left and mild right neural foraminal stenosis. 3. At L4-5, there has been posterior lumbar spinal decompression. While there is no significant central spinal canal stenosis, there is subarticular recess stenosis that appears to compress the descending bilateral L5 nerves greater on the left. There is severe left and moderate right neural foraminal stenosis. 4. At L5-S1, there has been posterior lumbar spinal decompression. Left subarticular recess stenosis may impinge upon the descending left S1 nerves. There is moderate bilateral neural foraminal stenosis. X-rays lumbar spine with flexion-extension views 08/15/2020: Review of the images shows previous laminectomy defect at the L4-5 and L5-S1 interspaces. We see lateral subluxation of L4 on 5 to the left potentially associated with lateral recess compromise and/or foraminal compromise at that level. The AP view suggests a possible pars defect on the left. The report: IMPRESSION: Degenerative changes without acute osseous abnormality. Cherise Prieto MD documented in this encounter [facility] Evaluation + Plan note No data available for this section [facility] Neurogenic claudication due to lumbar spinal stenosis- Primary Spinal stenosis of lumbar region Preop testing- Primary Unspecified pre-operative examination Neurogenic claudication due to lumbar spinal stenosis Spinal stenosis of lumbar region [facility] Diagnosis Spinal stenosis of lumbar region with neurogenic claudication- Primary Neurogenic claudication due to lumbar spinal stenosis- Primary Spinal stenosis of lumbar region Neurogenic claudication due to lumbar spinal stenosis Spinal stenosis of lumbar region [facility] Diagnosis Neurogenic claudication due to lumbar spinal stenosis- Primary Spinal stenosis of lumbar region Neurogenic claudication due to lumbar spinal stenosis- Primary Spinal stenosis of lumbar region Neurogenic claudication due to lumbar spinal stenosis Spinal stenosis of lumbar region [facility] Diagnosis Neurogenic claudication due to lumbar spinal stenosis- Primary Spinal stenosis of lumbar region Screening for viral disease- Primary Special screening examination for unspecified viral disease Neurogenic claudication due to lumbar spinal stenosis Spinal stenosis of lumbar region [facility] Diagnosis Neurogenic claudication due to lumbar spinal stenosis- Primary Spinal stenosis of lumbar region Preop testing Unspecified pre-operative examination Neurogenic claudication due to lumbar spinal stenosis Spinal stenosis of lumbar region [facility] Diagnosis Preop testing- Primary Unspecified pre-operative examination [facility]* Diagnosis Spinal stenosis of lumbar region with neurogenic claudication- Primary [facility] Diagnosis Neurogenic claudication due to lumbar spinal stenosis- Primary Spinal stenosis of lumbar region Spinal stenosis of lumbar region with neurogenic claudication S/P lumbar fusion Arthrodesis status [facility]* Diagnosis S/P lumbar fusion- Primary Arthrodesis status Spinal stenosis of lumbar region with neurogenic claudication [facility] Diagnosis Spinal stenosis of lumbar region with neurogenic claudication- Primary S/P lumbar fusion Arthrodesis status documented in this encounter [facility] note* Diagnosis Encounter for other preprocedural examination- Primary Unilateral primary osteoarthritis, right hip Other specified enthesopathies of unspecified lower limb, excluding foot documented in this encounter [facility] note* Diagnosis Preop cardiovascular exam- Primary Pre-operative cardiovascular examination Pre-op testing Preoperative examination, unspecified Unilateral primary osteoarthritis, right hip Other specified enthesopathies of unspecified lower limb, excluding foot documented in this encounter [facility] note* Diagnosis Preoperative clearance- Primary Preoperative examination, unspecified Palpitations Hypertension, unspecified type Abnormal stress test Other nonspecific abnormal cardiovascular system function study Abnormal stress test Other nonspecific abnormal cardiovascular system function study Unilateral primary osteoarthritis, right hip Other specified enthesopathies of unspecified lower limb, excluding foot documented in this encounter [facility] note* Diagnosis Hyperlipidemia, unspecified hyperlipidemia type- Primary Abnormal stress test Other nonspecific abnormal cardiovascular system function study Hypertension, unspecified type Palpitations documented in this encounter [facility] Discharge instructions No data available for this section [facility] Progress note No data available for this section [facility] Reason for referral (narrative)* Diagnostic Procedure Only (Routine) - Pending Review Specialty Diagnoses / Procedures Referred By Lawson case Referred To Contact MOLECULAR & FUNCTIONAL IMAGING Diagnoses Encounter for other preprocedural examination Procedures NM CARDIAC PERF STRESS/PHARM MYOCARDIAL SPECT MULTIPLE STUDIES Scarlett Bell DO [address] [place] [id number] Molecular & Functional Imaging [address] [place] [address] Referral ID Status Reason Start Date Expiration Date Visits Requested Visits Authorized [id number] Pending Review Auto-Generat ed Referral 01/02/2022 02/01/2023 1 1 [facility] for visit Narrative* Diagnostic Procedure Only (Routine) - Closed Specialty Diagnoses / Procedures Referred By Lawson case Referred To Contact MOLECULAR & FUNCTIONAL IMAGING Diagnoses Encounter for other preprocedural examination Procedures NM CARDIAC PERF STRESS/PHARM MYOCARDIAL SPECT MULTIPLE STUDIES Scarlett Bell, DO [address] [address] Molecular & Functional Imaging [address] [place] [id number] Referral ID Status Reason Start Date Expiration Date V isits Requested Visits Authorized [id number] Closed Auto-Generate d Referral 01/08/2022 02/07/2023 1 1 [facility] Summary Purpose Family History No Family History Records FoundNo Family History Records FoundNo Family History Records FoundNo Family History Records FoundNo Family History Records FoundNo Family History Records FoundNo Family History Records FoundNo Family History Records FoundNo Family History Records FoundNo Family History Records FoundNo Family History Records Found No data available for this section No Family History Records Found Advance Directives No Advanced Directives Records FoundDocuments on File Type Date Recorded Patient Police Communications Dispatcher Expl anation Advance Directives and Livin g Will 08/02/2020 12:00 AM Documents on File Type Date Recorded Patient Police Communications Dispatcher Expl anation Advance Directives and Livin g Will 08/15/2020 10:33 AM Documents on File Type Date Recorded Patient Police Communications Dispatcher Expl anation Advance Directives and Livin g Will 08/15/2020 10:33 AM Documents on File Type Date Recorded Patient Police Communications Dispatcher Expl anation Advance Directives and Livin g Will 09/10/2020 10:33 AM Documents on File Type Date Recorded Patient Police Communications Dispatcher Expl anation Advance Directives and Livin g Will 09/10/2020 10:33 AM Documents on File Type Date Recorded Patient Police Communications Dispatcher Expl anation Advance Directives and Livin g Will 10/23/2020 12:37 PM Documents on File Type Date Recorded Patient Police Communications Dispatcher Expl anation Advance Directives and Livin g Will 10/25/2020 5:57 AM Documents on File Type Date Recorded Patient Police Communications Dispatcher Expl anation Advance Directives and Livin g Will 10/25/2020 5:57 AM Latest Code Status on File Code Status Date Activated Date Inactivated Comments Full Code - Unverified 10/25/2020 4:52 PM 11/01/2020 3:59 PM Documents on File Type Date Recorded Patient Police Communications Dispatcher Expl anation Advance Directives and Livin g Will 02/07/2021 12:18 PM Latest Code Status on File Code Status Date Activated Date Inactivated Comments Full Code - Unverified 10/25/2020 4:52 PM 11/01/2020 3:59 PM Documents on File Type Date Recorded Patient Police Communications Dispatcher Expl anation Advance Directives and Livin g Will 05/09/2021 1:00 PM Latest Code Status on File Code Status Date Activated Date Inactivated Comments Full Code 02/20/2022 6:29 PM 02/21/2022 7:29 PM Full Code Order Discussed With: Patient Latest Code Status on File Code Status Date Activated Date Inactivated Comments Full Code 02/20/2022 6:29 PM 02/21/2022 7:29 PM Question Answer Comments Full Code Order Discussed With: Patient Reason for Referral Status Reason Specialty Diagnoses / Procedures Referred By Contact Referred To Contact Authorized Radiology Diagnoses Lumbar radiculopathy History of lumbar laminectomy for spinal cord decompression Procedures MR Lumbar Spine Without Contrast Sivakumar Whatley, DIETETIC TECHNICIAN [address] [place] [address] Status Reason Specialty Diagnoses / Procedures Referre d By Contact Referred To Contact Closed Radiology Diagnoses Lumbar radiculopathy History of lumbar laminectomy for spinal cord decompression Procedures MR Lumbar Spine Without Contrast Sivakmuar Whatley, DIETETIC TECHNICIAN [address] [place] [address] Status Reason Specialty Diagnoses / Procedures Referred By Contact Referred To Contact New Request Radiology Diagnoses Lumbar radicular pain Spinal stenosis of lumbar region with neurogenic claudication Status post lumbar laminectomy Procedures CT Lumbar Spine Without Contrast Cherise Prieto MD [address] [place] [address] Status Reason Specialty Diagnoses / Procedures Referred By Contact Referred To Contact Pending Review Patient Preference Rehabilitation Diagnoses Spinal stenosis of lumbar region with neurogenic claudication Cherise Prieto MD [address] [place] [address] Assessments Diagnosis Lumbar radiculopathy- Primary Thoracic or lumbosacral neuritis or radiculitis, unspecified History of lumbar laminectomy for spinal cord decompression Diagnosis Lumbar radiculopathy Thoracic or lumbosacral neuritis or radiculitis, unspecified History of lumbar laminectomy for spinal cord decompression Diagnosis Lumbar radiculopathy Thoracic or lumbosacral neuritis or radiculitis, unspecified History of lumbar laminectomy for spinal cord decompression Diagnosis Lumbar radicular pain Thoracic or lumbosacral neuritis or radiculitis, unspecified Spinal stenosis of lumbar region with neurogenic claudication Status post lumbar laminectomy History of Present Illness * Cherise Prieto MD - 08/22/2020 3:18 PM EDT Dulce Peñaloza 1950 Impression/Plan: Problem List Items Addressed This Visit Nervous and Auditory Lumbar radicular pain Relevant Orders CT Lumbar Spine Without Contrast Other Lumbar spinal stenosis L2-3, L3-4, with L4-5 foraminal stenosis Relevant Orders CT Lumbar Spine Without Contrast Status post lumbar laminectomy Relevant Orders CT Lumbar Spine Without Contrast Return after lumbar CT. she probably will benefit from decompression at L2-3 and L3-4 with possiblerevision laminectomy and interbody fusion at L4-5. Clinical Findings: Dulce Peñaloza is a 69 y.o. female person who is here for New Patient (New patient with complaints of back pain.) She notes a history of recurrent low back and lower extremity radicular pain problems. She reports she is status post 3 previous lumbar decompression surgeries. She has a history of low back injury after a gymnastics accident when she was 17 years old. Subsequently she had 3 lumbar decompression surgeries later in life. She reports she does not have any hardware in her low back and does not believe she had any sort of fusion procedures. She reports most recently having worsening symptoms over the last year. Her pain is across the low lumbar region as well is midline on the spine. She describes the low back pain as a squeezing sensation . The low back pain then radiates in a physiologic distribution into her buttock and down the posterior aspects of her thighs and calves to her feet. She notes an associated cramping in her posterior thighs as well. She reports some chronic numbness in the left thigh since her previous surgeries although this seems to have been worsening over the last year. She notes complete numbness on the left from the hip to the knee. She notes a new sense of weakness in her lower extremities where she feels like her legs are going to buckle and give out under her. She has also developed some associated new and worsening urinary incontinence. Assessment - 08/22/20 1449 Pain Assessment Pain Assessment 0-10 0-10 DVPRS 8/10 Pain Location Back Pain Descriptors Sharp;Shooting;Stabbing;Numbness;Pins and needles Pain Frequency Continuous and Intermittent Pain Onset Progressive Date Pain First Started 06/25/19 Past Medical History: Diagnosis Date Back pain Cancer (HCC) Hypertension Sleep apnea Patient Active Problem List Diagnosis Lumbar radicular pain Lumbar spinal stenosis L2-3, L3-4, with L4-5 foraminal stenosis Status post lumbar laminectomy She has a current medication list which includes the following prescription(s): aliskiren, omeprazole, toprol xl, triamterene-hydrochlorothiazide, and diclofenac sodium. Allergies: Dexlansoprazole, Losartan potassium, Oxycodone [id number]-pmgmbevzo-yoi, Promethazine hcl, Adhesive tape-silicones, Amitriptyline hcl, Anastrozole, Atenolol, Brompheniramine-phenylephrine, Caffeine, Calcium, Chymotrypsin, Clonidine, Codeine, Doxycycline calcium, Esterified estrogens, Exemestane, Fexofenadine, Fluticasone, Ibuprofen, Morphine, Norethindrone-e.estradiol-iron, Penicillins, Perphenazine, Prednisone, Sodium saccharin, Tamoxifen, Triprolidine- pseudoephedrine, Vitamin, Ct: iodinated contrast- oral and iv dye, Hydroxyzine, and Latex Past Surgical History: Procedure Laterality Date BACK SURGERY CHOLECYSTECTOMY HERNIA REPAIR HYSTERECTOMY LUMPECTOMY Social Hx: , she reports that she has never smoked. She has never used smokeless tobacco. Patient reports previous alcohol use. Patient reports no history of drug use. Family Hx: family history is not on file. Review of Systems: Her review of systems as documented in her MA note is reviewed. Physical Exam VS: Height: 5' 6 , Weight: 117.9 kg (260 lb) , Body mass index is 41.97 kg/m ., BP: (!) 172/72 Body habitus: obese Alert, oriented x 3 Affect: normal affect Gait/Station: normal gait and stance Head/neck exam reveals no deformity Thoraco-lumbar spine exam reveals no deformity. Head/neck and thoraco-lumbar local findings: Lumbar paraspinal tenderness present bilaterally., Right sciatic notch tenderness present., Left sciatic notch tenderness present. Neck and Thoraco-lumbar Range of Motion and Stability: diffusely decreased lumbar motion in all directions. Pain with ROM: pain with lumbar flexion, pain with lumbar extension. Neck and Thoraco-lumbar muscle mass, tone and strength and skin: appears wnl except:, a well healedmidline lumbar scar and adjacent paramidline scar. SLR: negative bilaterally Lower extremity muscle strength: lower extremity motor is strong and symmetric in all groups Reflexes: Patellar reflexes symmetrically intact and Achilles absent bilaterally and Clonus absent Lower Extremity Sensation: normal to light touch Balance and coordination: narrow based gait and normal coordinated casual motor activity Imaging: Independent review of images: Lumbar MRI 08/15/2020: Review of the images shows the presence of stenosis at L2-3 and L3-4 that is moderate to severe. Inaddition we see bilateral foraminal stenosis at L4-5 and some recurrent right-sided lateral recess stenosis at L4-5 just caudal to an area of potential postlaminectomy pars defect at that level. The L5-S1 level shows marked loss of disc space height, but with a satisfactory decompression and without associated foraminal narrowingw of the report reveals similar findings: IMPRESSION: 1. At L2-3, there is severe central spinal canal stenosis. There is htkh-fm-abjqaxlv left and mild right neural foraminal stenosis. 2. At L3-4, there is severe central spinal canal stenosis with elkc-ua-wauozipp left and mild rightneural foraminal stenosis. 3. At L4-5, there has been posterior lumbar spinal decompression. While there is no significant central spinal canal stenosis, there is subarticular recess stenosis that appears to compress the descending bilateral L5 nerves greater on the left. There is severe left and moderate right neural foraminal stenosis. 4. At L5-S1, there has been posterior lumbar spinal decompression. Left subarticular recess stenosis may impinge upon the descending left S1 nerves. There is moderate bilateral neural foraminal stenosis. X-rays lumbar spine with flexion-extension views 08/15/2020: Review of the images shows previous laminectomy defect at the L4-5 and L5-S1 interspaces. We see lateral subluxation of L4 on 5 to the left potentially associated with lateral recess compromise and/or foraminal compromise at that level. The AP view suggests a possible pars defect on the left. The report: IMPRESSION: Degenerative changes without acute osseous abnormality. Cherise Prieto MD * JULIANNA ESQUIVEL - 08/22/2020 2:48 PM EDT Review of Systems Constitutional: Positive for activity change. HENT: Positive for postnasal drip and tinnitus. Eyes: Positive for itching. Respiratory: Positive for apnea. Endocrine: Positive for cold intolerance. Genitourinary: Positive for enuresis and flank pain. Musculoskeletal: Positive for arthralgias, back pain, gait problem, joint swelling, myalgias, neck pain and neck stiffness. Allergic/Immunologic: Positive for environmental allergies. Neurological: Positive for weakness and numbness. All other systems reviewed and are negative. documented in this encounter Medications Administered Section Inactive Administered Medications - up to 3 most recent administrations Medication Order MAR Action Action Date Dose Rate Site regadenoson 0.4 mg injection (LEXISCAN) 0.4 mg, INTRAVENOUS, ONCE, 1 dose, On Thu01/28/22 at 1100, Give 0.4 mg (5 mL) over ~10 seconds, followed immediately by a 5 mL saline flush. Wait 10-20 seconds, then administer the radionuclide myocardial perfusion imaging agent. Given 01/28/2022 10:00 AM EDT 0.4 mg Additional Source Comments INFORMATION SOURCE (unrecogn ized section and content) DATE CREATED AUTHOR AUTHOR'S ORGANIZ ATION 08/23/2020 [facility] DATE CREATED AUTHOR AUTHOR'S ORGANIZ ATION 10/24/2020 [facility] DATE CREATED AUTHOR AUTHOR'S ORGANIZ ATION 11/08/2021 [facility] DATE CREATED AUTHOR AUTHOR'S ORGANIZ ATION 11/09/2021 [facility] DATE CREATED AUTHOR AUTHOR'S ORGANIZ ATION 02/03/2022 [facility] DATE CREATED AUTHOR AUTHOR'S ORGANIZ ATION 02/18/2022 [facility] DATE CREATED AUTHOR AUTHOR'S ORGANIZ ATION 02/25/2022 [facility] DATE CREATED AUTHOR AUTHOR'S ORGANIZ ATION 09/21/2022 [facility] DATE CREATED AUTHOR AUTHOR'S ORGANIZ ATION 01/10/2023 [facility] DATE CREATED AUTHOR AUTHOR'S ORGANIZ ATION 02/14/2023 [facility] DATE CREATED AUTHOR AUTHOR'S ORGANIZ ATION 02/27/2023 [facility] ([place]) Reason for Visit (unrecogniz ed section and content) Reason Comments New Patient New patient with com plaints of back pain. Status Reason Specialty Diagnoses / Procedures Referred By Contact Referred To Contact New Request Radiology Diagnoses Lumbar radicular pain Spinal stenosis of lumbar region with neurogenic claudication Status post lumbar laminectomy Procedures CT Lumbar Spine Without Contrast Cherise Prieto MD [address] [place] [address] Reason Comments Follow-up The patient is here to discuss CT results. Status Reason Specialty Diagnoses / Procedures Re ferred By Contact Referred To Contact Diagnoses Neurogenic claudication due to lumbar spinal stenosis Neurogenic claudication due to lumbar spinal stenosis [M48.062] Procedures MD ARTHDSIS POST/POSTEROLATRL/POSTI NTERBODY LUMBAR MD POSTERIOR NON-SEGMENTAL INSTRUMENTATION MD INSJ BIOMCHN DEV INTERVERTEBRAL [facility] W/ARTHRD MD AUTOGRAFT SPINE SURGERY LOCAL FROM SAME INCISION MD LAMINEC/FACETECT/FORAMI N,LUMBAR 1 SEG MD LAMINEC/FACETECT/FORAMI N,EACH ADDNL MD STEREOTACTIC COMP ASSIST PROC,SPINAL Cherise Prieto MD [address] [place] [address] Reason Comments Follow-up 3 M F/U WITH LUMBAR X-RAYS Reason Comments Follow-up The patient is here for a 3 month follow up with X-ray. Reason Comments Follow-up Patient is here toda y for her lumbar follow up Reason Comments Forms/letter Reason Comments Results Reason Comments clearance review Reason Comments Patient Question Reason Comments Cardiology Follow Up Follow Up Tests Results Reason Comments Office Clerk - Other Reason Comments Cardiology Follow Up Reason Comments Medication Problem Scheduled Active and Recently Administ ered Medications (unrecognized section and content) Continuous Medication Order 10/30/2020 10/31/2020 11/01/2020 sodium chloride 0.9% (NS) 100 mL/hr, Intravenous, Continuous, Starting on Elayne 10/25/20 at 1745, May lock IV fluids when tolerating PO fluids and having adequate urine output PRN Medication Order 10/30/2020 10/31/2020 11/01/2020 aluminum-magnesium hydroxide-simethicone (MAALOX PLUS) 200-200-20 mg/5 mL suspension 30 mL 30 mL, Oral, Every 4 hours PRN, indigestion, Starting on Elayne 10/25/20 at 1651 bisacodyL (DULCOLAX) suppository 10 mg 10 mg, Rectal, Daily PRN, constipation, Starting on Elayne 10/25/20 at 1651, Try oral meds first. [place] rectal route for when oral meds are ineffective, not tolerated, or not ordered. cyclobenzaprine (FLEXERIL) tablet 5 mg 5 mg, Oral, Every 8 hours PRN, muscle spasms, Starting on Elayne 10/25/20 at 1651 0927 (Given - Provider: Marianela Salter RN) 1003 (Given - Provider: Roya Berry, RON)1810 (Given - Provider: Roya Berry RN) 0225 (Given - Provider: Ld Garcia RN)1040 (Given - Provider: Shobha Snyder RN)1233 (Due) HYDROcodone-acetaminophen (NORCO) 5-325 mg per tablet 1-2 tablet 1-2 tablet, Oral, Every 4 hours PRN, moderate to severe pain, Starting on Elayne 10/25/20 at 1651, [] Initiate with 1 tab oral every 4 hours prn moderate to severe pain. [] For unrelieved pain, may repeat 1 tab oral dose within 60 minutes of initial dose. [] If pain is RELIEVED after repeat dose, change to 2 tabs oral every 4 hours prn moderate to severe pain. [] If pain is UNrelieved after repeat dose, or patient requires dose reduction, call physician. 0013 (Given - Provider: Ld Garcia RN)0704 (Given - Provider: Ld Garcia RN)1130 (Given - Provider: Sandra Jett RN)165 (Given - Provider: Marianela Salter, RN)210 (Given - Provider: Ld Garcia, RN) 0147 (Given - Provider: Ld Garcia, RN)0838 (Given - Provider: Rita Brito, RN)1306 (Given - Provider: Roya Berry, RN)165 (Given - Provider: Roya Berry, RN)212 (Given - Provider: Beryl Pantoja, RON) 0123 (Given - Provider: Beryl Pantoja, RON)0918 (Given - Provider: Marisa Barriga, RON)1319 (Given - Provider: Shobha Snyder RN) magnesium hydroxide (MOM) 400 mg/5 mL suspension 2,400 mg 2,400 mg (30 mL), Oral, Daily PRN, constipation, constipation, Starting on Elayne 10/25/20 at 1651 naloxone (NARCAN) injection 0.1 mg(Linked Group 2) 0.1 mg, Intravenous, As needed, opioid reversal, For respiratory rate less than or equal to 8 per minute., Starting on Elayne 10/25/20 at 1651, Mix nalOXone (NARCAN) 0.4 mg (1ml) with 9 mL of Normal Saline to total 10 mL. Administer 0.1 mg (2.5ml) IV Push every 2 minutes until respiratory rate is 10 or greater. naloxone (NARCAN) injection 0.4 mg(Linked Group 2) 0.4 mg, Intravenous, As needed, opioid reversal, patient is pulseless, breathless, and unresponsive, Starting on Elayne 10/25/20 at 1651, Call a code first, then administer naloxone dose undiluted IV Push over 30 seconds. ondansetron (ZOFRAN) injection 4 mg(Linked Group 3) 4 mg, Intravenous, Every 6 hours PRN, nausea, vomiting, Starting on Elayne 10/25/20 at 1651, Oral or IV - use oral route if tolerated ondansetron (ZOFRAN-ODT) disintegrating tablet 4 mg(Linked Group 3) 4 mg, Oral, Every 6 hours PRN, nausea, vomiting, Starting on Elayne 10/25/20 at 1651, Oral or IV - use oral route if tolerated Formulation requires tablet remain in sealed package until immediately prior to dose being administered. sodium chloride (PF) (NS) flush 5 mL(Linked Group 1) 5 mL, Intravenous, As needed, line care, Starting on Elayne 10/25/20 at 1651 2035 (Given - Provider: Beryl Pantoja RN) sodium chloride 0.9% (NS)(Linked Group 1) 0-150 mL/hr, Intravenous, As needed, To flush line after IV infusions when no maintenance IV ordered or a compatibility issue. Infuse 20ml at the same rate as the secondary infusion, Starting on Elayne 10/25/20 at 1651, Run as Primary IV. NOT intended for KVO. Linked Groups Order Group 1: Saline lock IV (CANCELED) Routine, Continuous, Starting on Elayne 10/25/20 at 1652, Until Specified
May lock IV fluids when tolerating PO fluids and having adequate urine output And sodium chloride (PF) (NS) flush 5 mLJump to med 5 mL, Intravenous, As needed, line care, Starting on Elayne 10/25/20 at 1651 And sodium chloride (PF) (NS) flush 5 mLJump to med 5 mL, Intravenous, Every 8 hours scheduled, First dose on Elayne 10/25/20 at 2200
Saline lock
And sodium chloride 0.9% (NS)Jump to med 0-150 mL/hr, Intravenous, As needed, To flush line after IV infusions when no maintenance IV ordered or a compatibility issue. Infuse 20ml at the same rate as the secondary infusion, Starting on Elayne 10/25/20 at 1651
Run as Primary IV. NOT intended for KVO.
Group 2: naloxone (NARCAN) injection 0.1 mgJump to med 0.1 mg, Intravenous, As needed, opioid reversal, For respiratory rate less than or equal to 8 per minute., Starting on Elayne 10/25/20 at 1651
Mix nalOXone (NARCAN) 0.4 mg (1ml) with 9 mL of Normal Saline to total 10 mL. Administer 0.1 mg (2.5ml) IV Push every 2 minutes until respiratory rate is 10 or greater.
And Notify physician (CANCELED) STAT, Until discontinued, Starting on Elayne 10/25/20 at 1652, Until Specified
Respiratory rate less than: 8
For respiratory rate less than or equal to 8, notify physician and/or appropriate staff for additional orders. And naloxone (NARCAN) injection 0.4 mgJump to med 0.4 mg, Intravenous, As needed, opioid reversal, patient is pulseless, breathless, and unresponsive, Starting on Elayne 10/25/20 at 1651
Call a code first, then administer naloxone dose undiluted IV Push over 30 seconds.
Group 3: ondansetron (ZOFRAN-ODT) disintegrating tablet 4 mgJump to med 4 mg, Oral, Every 6 hours PRN, nausea, vomiting, Starting on Elayne 10/25/20 at 1651
Oral or IV - use oral route if tolerated Formulation requires tablet remain in sealed package until immediately prior to dose being administered.
Or ondansetron (ZOFRAN) injection 4 mgJump to med 4 mg, Intravenous, Every 6 hours PRN, nausea, vomiting, Starting on Elayne 10/25/20 at 1651
Oral or IV - use oral route if tolerated
Care Teams (unrecognized sec tion and content) Gas Worker Relationship Specialty Start Date End Date Jl Whatley MD PCP - General Family Practice 07/22/16 Gas Worker Relationship Specialty Start Date End Date Jl Whatley MD PCP - General Family Practice 07/22/16 Gas Worker Relationship Specialty Start Date End Date lJ Whatley MD [address] [place] [id number] PCP - General Family Medicine 08/15/20 Gas Worker Relationship Specialty Start Date End Date Jl Whatley MD PCP - General Family Practice 07/22/16 Gas Worker Relationship Specialty Start Date End Date Jl Whatley MD PCP - General Family Practice 07/22/16 Gas Worker Relationship Specialty Start Date End Date Jl Whatley MD PCP - General Family Practice 07/22/16 Gas Worker Relationship Specialty Start Date End Date Jl Whatley MD PCP - General Family Practice 07/22/16 Gas Worker Relationship Specialty Start Date End Date Mohan Kat [address] [place] [address] PCP - General Family Medicine 02/11/22 Gas Worker Relationship Specialty Start Date End Date Mohan Kat [address] [place] [address] PCP - General Family Medicine 02/11/22 Gas Worker Relationship Specialty Start Date End Date [facility]an Kat [address] [facility] [address] [place] [address] PCP - General Family Medicine 02/11/22 Gas Worker Relationship Specialty Start Date End Date Mohan Kat [address] [place] [address] PCP - General Family Medicine 02/11/22 Gas Worker Relationship Specialty Start Date End Date Mohan Kat [address] [facility] [address] [place] [address] PCP - General Family Medicine 02/11/22 Gas Worker Relationship Specialty Start Date End Date Mohan Kat MD [address] [facility] [address] [place] [address] PCP - General Family Medicine 02/11/22 Source Comments (unrecognize d section and content) In the event this informatio n is protected by the Federal Confidentiality of Alcohol and Drug Abuse Patient Records regulations: The Federal rules restrict any use of the information to criminally investigate or prosecute any alcohol or drug abuse patient.[facility]In the event this information is protected by the Federal Confidentiality of Alcohol and Drug Abuse Patient Records regulations: The Federal rules restrict any use of the information to criminally investigate or prosecute any alcohol or drug abuse patient.[facility]In the event this information is protected by the Federal Confidentiality of Alcohol and Drug Abuse Patient Records regulations: The Federal rules restrict any use of the information to criminally investigate or prosecute any alcohol or drug abuse patient.[facility]woodsIn the event this information is protected by the Federal Confidentiality of Alcohol and Drug Abuse Patient Records regulations: The Federal rules restrict any use of the information to criminally investigate or prosecute any alcohol or drug abuse patient.[facility]woodsIn the event this information is protected by the Federal Confidentiality of Alcohol and Drug Abuse Patient Records regulations: The Federal rules restrict any use of the information to criminally investigate or prosecute any alcohol or drug abuse patient.[facility]woodsIn the event this information is protected by the Federal Confidentiality of Alcohol and Drug Abuse Patient Records regulations: The Federal rules restrict any use of the information to criminally investigate or prosecute any alcohol or drug abuse patient.[facility]woodsIn the event this information is protected by the Federal Confidentiality of Alcohol and Drug Abuse Patient Records regulations: The Federal rules restrict any use of the information to criminally investigate or prosecute any alcohol or drug abuse patient.[facility]woodsIn the event this information is protected by the Federal Confidentiality of Alcohol and Drug Abuse Patient Records regulations: The Federal rules restrict any use of the information to criminally investigate or prosecute any alcohol or drug abuse patient.[facility]woodsIn the event this information is protected by the Federal Confidentiality of Alcohol and Drug Abuse Patient Records regulations: The Federal rules restrict any use of the information to criminally investigate or prosecute any alcohol or drug abuse patient.[facility]woodsIn the event this information is protected by the Federal Confidentiality of Alcohol and Drug Abuse Patient Records regulations: The Federal rules restrict any use of the information to criminally investigate or prosecute any alcohol or drug abuse patient.[facility]woodsIn the event this information is protected by the Federal Confidentiality of Alcohol and Drug Abuse Patient Records regulations: The Federal rules restrict any use of the information to criminally investigate or prosecute any alcohol or drug abuse patient.[facility]woodsIn the event this information is protected by the Federal Confidentiality of Alcohol and Drug Abuse Patient Records regulations: The Federal rules restrict any use of the information to criminally investigate or prosecute any alcohol or drug abuse patient.[facility]woodsIn the event this information is protected by the Federal Confidentiality of Alcohol and Drug Abuse Patient Records regulations: The Federal rules restrict any use of the information to criminally investigate or prosecute any alcohol or drug abuse patient.[facility]woodsIn the event this information is protected by the Federal Confidentiality of Alcohol and Drug Abuse Patient Records regulations: The Federal rules restrict any use of the information to criminally investigate or prosecute any alcohol or drug abuse patient.[facility] FOR RECORDS PERTAINING TO PATIENTS WHO ARE OR HAVE BEEN ENROLLED IN A CHEMICAL DEPENDENCY/SUBSTANCEABUSE PROGRAM, SOME INFORMATION MAY BE OMITTED. This clinical summary was aggregated from multiple sources. Caution should be exercised in using it in the provision of clinical care. This summary normalizes information from multiple sources, and as a consequence, information in this document may materially change the coding, format and clinical context of patient data. In addition, data may be omitted in some cases. CLINICAL DECISIONS SHOULD BE BASED ON THE PRIMARY CLINICAL RECORDS. [facility] [employer] [facility]. provides no warranty or guarantee of the accuracy or completeness of information in this document.
[2023-06-03 17:43] LABS: Absolute Lymphocyte Count 2.32 X10^3/uL (0.83-4.51); Absolute Neutrophil Count 5.2 X10^3/uL (2.0-7.7); Basophil# 0.04 X10^3/uL; Basophil% 0.5 % (0-1); Eosinophil# 0.13 X10^3/uL; Eosinophils% 1.5 % (0-5); Hematocrit 42.6 % (37-47); Hemoglobin 12.8 g/dL (12.0-15.0); Lymphocyte # 2.32 X10^3/ul (0.83-4.51); Lymphocyte % 27.1 % (19-41); Mean Corpuscular Hgb 27.2 pg (27.0-32.0); Mean Corpuscular Volume 90.6 fL (81-99); Mean Platelet Vol. 11.5 fl (6.2-12.0); Monocyte# 0.86 X10^3/uL; NRBC Flagged by Analyzer 0 % (0-5); Neutrophil % 60.7 % (47-70); Platelet Count 252 K/mm3 (150-450); RBC Distribution Width SD 46.5 fl (35.1-43.9); White Blood Count 8.6 K/mm3 (4.4-11.0)
[2023-06-03 18:00] LABS: Vitamin D,25 Hydroxy 50.3 ng/mL
[2023-06-03 18:02] LABS: Hemoglobin A1c 5.9 % (3.8-5.6)
[2023-06-03 18:38] LABS: ALB/GLOB Ratio 0.8 RATIO (0.9-2.4); AST(SGOT) 19 U/L (15-37); Alanine Aminotransfer ALT/SGPT 16 U/L (13-56); Albumin, Serum 3.4 g/dL (3.2-5.0); Alkaline Phosphatase 101 U/L (45-117); Anion Gap 7 (5-15); BUN 24 mg/dL (7-18); BUN/Creat Ratio 27.3 RATIO (10-20); Calcium,Total 8.8 mg/dL (8.5-10.1); Chloride 111 mmol/L (98-107); Cholesterol 155 mg/dL (200); Creatinine, Serum 0.88 mg/dL (0.55-1.02); EST Glomerular Filtration Rate 67 mL/min (>60); Est Glom Filt Rate - Afr Amer 81 mL/min (>60); Globulin 4.2 g/dL (2.2-4.2); Glucose 106 mg/dL (74-106); High Density Lipoprotein 45 mg/dL; Potassium 3.8 mmol/L (3.5-5.1); Protein, Total 7.6 g/dL (6.4-8.2); Sodium Level 141 mmol/L (136-145); Triglycerides 168 mg/dL; Very Low Density Lipoprotein 34 mg/dL (5-40)
== END | disposition home or self-care (01) ==
LOC: MFPLAB 16:29
PROVIDERS: PCP Family Medicine; Visit Provider Family Medicine
DX: R73.02 Impaired glucose tolerance (oral) (principal); E55.9 Vitamin D deficiency, unspecified; I10 Essential (primary) hypertension
CPT/HCPCS: 36415; 80053; 80061; 82306; 83036; 85025

== ENCOUNTER → 2023-12-01 | Outpatient (CLI) | payer MEDICARE, SELFPAY ==
[2023-12-01 10:54] LABS: Bacteria 0 SEEN /hpf (None Seen); Mucous, Urine 0 SEEN /hpf (<or=2+); Red Blood Cells-Urine 0 SEEN /hpf (0-5)
[2023-12-01 12:15] LABS: Color, Urine Yellow (Yellow); Glucose, Dipstick Normal (Normal); Ketone-Dipstick Negative (Negative); Leukocyte Esterase-Dipstick 25 /ul (Negative); Nitrite-Dipstick Negative (Negative); Occult Blood-Urine Negative /ul (Negative); Protein-Dipstick Negative (Negative); Specific Gravity, Urine 1.015 (1.002-1.030); Urine Bilirubin Dipstick Negative (Negative); Urine Clarity Clear (Clear); Urine Urobilinogen Normal (Normal)
[2023-12-01 12:31] LABS: Squamous Epithelial Cells - UA 5-10 SEEN /hpf (5-10); White Blood Cells 0-5 SEEN /hpf (0-5)
[2023-12-01 12:47] LABS: Absolute Lymphocyte Count 1.74 X10^3/uL (0.83-4.51); Absolute Neutrophil Count 3.6 X10^3/uL (2.0-7.7); Basophil# 0.05 X10^3/uL; Basophil% 0.8 % (0-1); Eosinophil# 0.12 X10^3/uL; Hematocrit 42.5 % (37-47); Hemoglobin 13.2 g/dL (12.0-15.0); Lymphocyte # 1.74 X10^3/ul (0.83-4.51); Lymphocyte % 28.8 % (19-41); Mean Corp Hgb Conc 31.1 g/dL (32-36); Mean Corpuscular Volume 87.1 fL (81-99); Mean Platelet Vol. 11.5 fl (6.2-12.0); Monocyte# 0.53 X10^3/uL; Monocyte% 8.8 % (0-10); NRBC Flagged by Analyzer 0 % (0-5); Neutrophil # 3.59 X10^3/uL (2.7-7.7); Neutrophil % 59.3 % (47-70); Platelet Count 202 K/mm3 (150-450); RBC Distribution Width CV 14.6 % (11.6-14.6); RBC Distribution Width SD 45.8 fl (35.1-43.9); Red Blood Count 4.88 M/mm3 (4.2-5.4); White Blood Count 6.1 K/mm3 (4.4-11.0)
[2023-12-01 12:49] LABS: ALB/GLOB Ratio 0.9 RATIO (0.9-2.4); AST(SGOT) 18 U/L (15-37); Alanine Aminotransfer ALT/SGPT 21 U/L (13-56); Albumin, Serum 3.4 g/dL (3.2-5.0); Alkaline Phosphatase 109 U/L (45-117); Anion Gap 4 (5-15); BUN 14 mg/dL (7-18); BUN/Creat Ratio 15.6 RATIO (10-20); Calcium,Total 9.2 mg/dL (8.5-10.1); Chloride 108 mmol/L (98-107); Cholesterol 133 mg/dL (200); EST Glomerular Filtration Rate 65 mL/min (>60); Est Glom Filt Rate - Afr Amer 79 mL/min (>60); Globulin 3.9 g/dL (2.2-4.2); Glucose 137 mg/dL (74-106); High Density Lipoprotein 44 mg/dL; Magnesium 1.9 mg/dL (1.6-2.6); Protein, Total 7.3 g/dL (6.4-8.2); Sodium Level 140 mmol/L (136-145); Triglycerides 115 mg/dL; Very Low Density Lipoprotein 23 mg/dL (5-40)
[2023-12-01 13:00] LABS: Vitamin D,25 Hydroxy 46.4 ng/mL
[2023-12-01 15:09] LABS: Hemoglobin A1c 5.9 % (3.8-5.6)
== END | disposition home or self-care (01) ==
LOC: MTLAB 10:39
PROVIDERS: PCP Family Medicine; Referring Provider Family Medicine; Visit Provider Family Medicine
DX: I10 Essential (primary) hypertension (principal); R73.02 Impaired glucose tolerance (oral); E55.9 Vitamin D deficiency, unspecified
CPT/HCPCS: 36415; 80053; 80061; 81001; 82306; 83036; 83735; 84443; 85025

== ENCOUNTER → 2023-12-22 | Outpatient (CLI) | payer MEDICARE, SELFPAY ==
--- NOTE | 2023-12-22 11:36 | NM_ITS ---
CLINICAL: 73-year-old female with history of early satiety. SEMI-SOLID PHASE 99m Tc SULFUR COLLOID GASTRIC EMPTYING STUDY COMPARISON: None available FINDINGS: The patient was administered 1.0 mCi of 99m Tc sulfur colloid mixed with oatmeal and consumed per os. Image acquisitions in the anterior-posterior projections were obtained for 60 minutes. There is prompt visualization of the stomach. There is no gastroesophageal reflux identified. The T ? raw data emptying was calculated to be 39.98 minutes, (Normal: 12-56 minutes). NM/Gastric Emptying Study IMPRESSION: 1. NORMAL 99m Tc sulfur colloid semi-solid phase (oatmeal) gastric emptying imaging examination. A. There is normal and preserved semi-solid phase gastric emptying compared to normal controls. (Doni et al, J Nucl Med Tech 38: 186, 2010). Electronically Signed: Dony Suárez DO at 10:56 EDT ,
== END | disposition home or self-care (01) ==
LOC: NM 11:33
PROVIDERS: PCP Family Medicine; Referring Provider Family Medicine; Visit Provider Family Medicine
DX: R68.81 Early satiety (principal)
CPT/HCPCS: 78264; A9541

== ENCOUNTER → 2024-07-19 | Outpatient (CLI) | payer MEDICARE, SELFPAY ==
--- NOTE | 2024-07-19 14:21 | BI_ITS ---
PROCEDURE: DIAG MAMM W/CAD, BILAT REASON FOR EXAM: 73-year-old female presents with palpable concern in the left breast. 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 TECHNIQUE: Bilateral diagnostic digital breast tomosynthesis with 2D and 3D images. Computer aided detection. COMPARISON: 09/10/2021 FINDINGS: There is a triangle skin marker indicating the area of palpable concern in the upper inner left breast at anterior depth. Underlying the skin marker is a large dystrophic calcification in the postsurgical bed, which has not significantly changed when compared to examination of 09/10/2021. Otherwise, there are no suspicious findings in the left breast. There are no suspicious masses, grouped calcifications or architectural distortions in the right breast. BI/DIAG MAMM W/CAD, BILAT IMPRESSION: The area of palpable concern in the left breast correlates to a benign calcific ation, which is stable when compared to priors dating back to 2021. There is no evidence of malignancy in either breast. BI-RADS 2: BENIGN. RECOMMEND ANNUAL MAMMOGRAPHIC SCREENING. Follow-up code: Routine Follow-up Reading Location: [id number]
== END | disposition home or self-care (01) ==
LOC: OPBI 14:16
PROVIDERS: PCP Registered Nurse; Referring Provider Registered Nurse; Visit Provider Registered Nurse
DX: N63.20 Unspecified lump in the left breast, unspecified quadrant (principal); Z85.3 Personal history of malignant neoplasm of breast
CPT/HCPCS: 77062; 77066; G0279